=== PATIENT | male | born 1995 | race Caucasian/White ===

== ENCOUNTER 2017-04-10 09:34 | Inpatient (IN) | payer OTHER ==
[~2017-04-10] VITALS: Ht 157.5 cm; Wt 68.5 kg
[~2017-04-10 09:34] MED LIST: ABILIFY5 MG; AUGMENTIN600 MG/5 M PO; AZITHROMYC200 MG/5 M GT; BETHANECHOL CHLO5 MG GT; BISAC-EVAC10 MG PR; CIPROFLOXACIN750 MG PO; CLONAZEPAM0.5 MG PO; CLONIDINE HCL0.2 MG PO; GLYCOPYRROLATE1 MG GT; MIRALAX17 GM PT; NEXIUM20 M1 PO; ONFI10 MG GT; ROBINUL1 MG PO; TRAZODONE HCL50 MG GT; VALPROIC A250 MG/5 M GT; VALPROIC ACID250 MG
--- NOTE | 2017-04-10 13:50 | NUR ---
PT ARRIVED TO MED SURG FLOOR WITH RN MEDICAL TECHNOLOGIST CLINICAL. PT RESPIRATIONS AT 38 BREATHS PER MINUTE, PT O2 SATURATION AT 94%. PT HR ELEVATED IN THE 130S. PT FEBRILE AT 100.2. PTS LUNGS SOUND COURSE THROUGHOUT. IV PATENT INFUSING D5 1/2 NS+20K. WILL CONTINUE TO REASSESS. PT'S FAMILY IN ROOM.
--- NOTE | 2017-04-10 15:47 | NUR ---
PT FAMILY AT BEDSIDE. PT TEMPERATURE 99.4 TEMPORAL. TURNED PT FROM RIGHT SIDE TO LEFT WITH ASSISTANCE FROM PARENTS. PT SP02 89% ON 3L BY MASK. PT HR 128. WILL CONTINUE TO REASSESS.
--- NOTE | 2017-04-10 18:12 | NUR ---
REPOSITIONED PT TO BACK. PT MOTHER IN ROOM. PT HR 111, O2 SAT 91% ON 3L BY MASK. PT ABLE TO MOVE LEGS ON COMMAND, LEFT ARM FOR HIS MOTHER. WILL CONTINUE TO ASSESS PT.
--- NOTE | 2017-04-10 18:48 | NUR ---
PT ARRIVED TO FLOOR AT 1350 FROM ER. PT FEVER HAS RESOLVED, 98.3 AT 1800. PT HAS IV FLUID D5 1/2 NS +20K INFUSING AT 100 ML/HR. RESP RATE HAS BEEN TACHYPNIC THROUGHOUT SHIFT BETWEEN 32-38 BREATHS PER MIN. HR ELEVATED, 114 AT 1800. PT HAS RECEIVED 2L BOLUS OF FLUID IN ER. LACTIC ACID WAS 3.1. OXYGEN SATURATION 92% ON 3L BY MASK. PT FAMILY HAS BEEN PRESENT THROUGHOUT SHIFT, ASSISTING WITH TURNING, SUCTION, MEDICATION ADMINISTRATION.
--- NOTE | 2017-04-10 19:20 | NUR ---
REPORT GIVEN TO RALPH INMAN. CARE OF PT TRANSFERRED.
--- NOTE | 2017-04-10 20:00 | NUR ---
RECEIVED REPORT AT 1900. FOUND PT IN BED WITH PARENTS AT BEDSIDE. PT APPEARD COMFORTABLE.
--- NOTE | 2017-04-10 22:00 | NUR ---
ALL LOBES ARE COARSE. V/S ARE WDL, PT HAS HAD SOME EMESIS AND NEEDED TO BE SUCTIONED BY MOTHER.
--- NOTE | 2017-04-11 01:30 | NUR ---
PT IS SLEEPING AT THIS TIME.
--- NOTE | 2017-04-11 03:12 | NUR ---
PT IS SLEEPING AT THIS TIME.
--- NOTE | 2017-04-11 04:48 | NUR ---
PT OVERALL HAD AN UNEVENTFUL NIGHT. PT HAS BEENS SLEEPING SINCE ABOUT 2229. MOTHER IS VERY INVOLVED WITH THE CARE OF HER SON. LUNGS WITH BOTH ASSESSMENTS THIS SHIFT WERE VERY COARSE. PT DID NOT SEEM TO HAVE SOB.
--- NOTE | 2017-04-11 07:16 | NUR ---
ATTEMPTED TO PULL BLOOD FROM IV FOR LAB. UNSUCCESSFUL. ER NURSE TO ROOM TO ATTEMPT.
--- NOTE | 2017-04-11 07:44 | NUR ---
FAMILY IN ROOM WITH PT. REPORT PT IS BACK TO BASELINE.
--- NOTE | 2017-04-11 09:14 | NUR ---
DR MARI IN TO SEE PT.
[2017-04-11] MEDS ORDERED: AZITHROMYC200 MG/5 M PT (09:31)
--- NOTE | 2017-04-13 14:51 | HP ---
[facility] [address], [place] [address] Signed DATE OF SERVICE: 04/10/2017 REFERRING PHYSICIAN: Dr. Rob Navarro PRIMARY CARE PHYSICIAN: Dr. Kaveh Andrade IDENTIFICATION: The patient is a 21-year-old male with cerebral palsy and developmental delay. He has been admitted through the emergency room. History is obtained from the patient's parents. The mother works in the emergency room at [employer]. REASON FOR ADMISSION: Some respiratory distress. HISTORY OF PRESENT ILLNESS: The patient is a 21-year-old male with severe developmental delay, quadriplegia and seizure disorder who is in his baseline stated health until this morning when he was found in bed in respiratory distress. The night before he appeared normal. His father had seen him early in the morning before he left for work, but when his care givers and his mother found him this morning, he was having difficulty breathing with oxygen saturations down to 70%. He is not normally on oxygen at home. He was given his routine vest CPT treatment and some suctioning, but did not improve, and therefore, he was brought to the emergency room. Parents state that there has been no fever, no rhinorrhea, or no ill contacts. He did not have a cough yesterday. In fact, he was seen by his primary care provider Dr. Andrade and everything sounded normal at that time. He has a history of prior pneumonia in July 2016. In the emergency room, he is in severe respiratory distress with oxygen saturations of 70%. He was given oxygen, IV fluids, nebulizing treatments, and aggressive suctioning. He had a large mucous plug, which was removed. However, he continued to have oxygen requirement and remained tachycardic. His chest x-ray was not abnormal, but his white count was elevated, and therefore, he was referred for admission. His chest x-ray was unchanged from prior chest x-rays. PAST MEDICAL HISTORY: Significant for: Cerebral palsy with quadriplegia since . Born at 31 weeks as mid gestational age with intrauterine stroke. Seizure disorder. The patient normally has 2 to 30 seizures a day, which are described as startle like reactions. The seizure has been under better control on Onfi and valproic acid recently. He really has grand mal seizures. Electronically Signed By: AGUSTIN RIGGS MD 04/13/17 1451 PATIENT NAME: EKATERINA BARON HISTORY AND PHYSICAL DATE OF : [birth year] PHYSICIAN: AGUSTIN RIGGS MD REPORT #: [id number] REPORT IS CONFIDENTIAL AND NOT TO BE RELEASED WITHOUT AUTHORIZATION [facility] [address], [place] [address] Signed Spasticity, status post baclofen pump placement. Hydrocephalus, status post ventriculoperitoneal shunt placement. Hospitalized for pneumonia in July 2016. PAST SURGICAL HISTORY: Includes ventriculoperitoneal shunt placement, gastrostomy tube placement, bilateral hernia repair, Hamstring tendon release bilaterally, fracture of the right leg, baclofen pump placement, and right hip surgery. CURRENT MEDICATIONS: Include MiraLAX 1 packet 2 times a week on Thursday and Thursday, Nexium 20 mg p.o. q. day, Bethanechol 2.5 mg t.i.d., glycopyrrolate 2 m g q. day, Clobazam 20 mg b.i.d., trazodone 50 mg at bedtime, glycopyrrolate 1.5 mg b.i.d., valproic acid 10 ml b.i.d., Fleet enema p.r.n. for constipation. ALLERGIES: To topiramate. SOCIAL HISTORY: The patient lives at home with his parents. He is dependant on family for 100% of his ADLs. He has in-home caregivers. The mother works in the emergency room. He has 2 brothers. There is 1 cat and 1 dog in the home. The father smokes outside the home. The parents are his POA. The parents both agreed to full code at this time. FAMILY HISTORY: Noncontributory. The parents and siblings are all healthy. REVIEW OF SYSTEMS: He has had no fever or night sweats. There has been no rhinorrhea. He does have a chronic cough, which has not changed recently. There has been no significant dyspnea. There has been no nausea, vomiting, or diarrhea. He was noted to have daily seizures up to 30 a day. Otherwise, a 14-point review of systems has been negative except for what had been mentioned in the history of present illness. PHYSICAL EXAMINATION: VITAL SIGNS: Temperature 37.3, pulse 139, respirations 36, blood pressure 145/66, oxygen saturations 97% on a 2 L face mask. GENERAL: The patient is felt mentally delayed with cerebral palsy in moderate respiratory distress. Electronically Signed By: AGUSTIN RIGGS MD 04/13/17 1451 PATIENT NAME: EKATERINA BARON HISTORY AND PHYSICAL DATE OF : [birth year] PHYSICIAN: AGUSTIN RIGGS MD REPORT #: [id number] REPORT IS CONFIDENTIAL AND NOT TO BE RELEASED WITHOUT AUTHORIZATION [address] [address] Signed HEENT: Head is atraumatic. Eyes: Pupils were 8 mm, equally round and reactive to light. There is no scleral injection. Nose is clear without epistaxis or rhinorrhea. Mouth was moist. Ears: Right tympanic membrane was occluded by cerumen. Left tympanic membrane was clear. NECK: No nuchal rigidity. No lymphadenopathy. No thyromegaly. LUNGS: Demonstrated diffuse rhonchi bilaterally with significant conducted upper airway noises. CARDIAC: Tachycardic. Regular rhythm without murmur or gallops. ABDOMEN: Positive bowel sounds, somewhat obese, soft, nondistended, nontender. There is gastrostomy tube in the left lower quadrant that do not appear to have any evidence of infection. GENITOURINARY: Deferred. EXTREMITIES: Extremities were warm distally. Capillary refill time was 3-4 seconds. There is no cyanosis or edema. There were flexion contractures in all extremities. There was decreased range of motion at all the joints. SKIN: Warm and dry. There is some diffuse erythema in the lower extremities. There is multiple small round petechiae up and down the legs. Parents, however, state that he has had this for some time and the etiology is unknown. NEUROLOGIC: The patient was awake, eyes were open. He did not seem to interact with his p arents, he did not speak, he did not follow commands, he was rigid to touch in all extremities. He was hypertonic throughout. There are multiple beats of clonus bilaterally. DIAGNOSTIC DATA: CBC: Showed white blood cell count of 16.1, hemoglobin 17, hematocrit 52.6, platelet count of 141,000. Differential, segs 83, lymphs 9, monos 5. Electrolytes: Sodium 140, potassium 3.9, chloride 100, CO2 30, BUN 11, creatinine 0.36. Random glucose 105. Anion gap was 13.9. Venous lactate was 3.1. Calcium 10.2. Total bili spangler 0.2. AST 11, ALT 7, alkaline phosphatase 80. Total protein was 8.3, albumin 4.3. Chest x-ray demonstrated no acute changes. IMPRESSION: This is a 21-year-old male with; Acute respiratory distress of undetermined aetiology, most likely represents mucous plugging and/or aspiration pneumonia. The patient was healthy yesterday and he has had no fevers recently. He will be treated with ceftriaxone and azithromycin for presumed acute bronchitis versus aspiration pneumonia. He has received a fluid bolus and a sepsis protocol in the emergency room. We will repeat his chest x-ray in the morning to see if there is any new development. He will receive aggressive respiratory therapy and pulmonary toilet including CPT t.i.d., albuterol nebulizations t.i.d. and q.1 h our as needed. If the patient continues to have increased mucus plugging, then we will consider adding nebulized hypertonic saline. The patient will be continued on his normal home Electronically Signed By: AGUSTIN RIGGS MD 04/13/17 1451 PATIENT NAME: EKATERINA BARON HISTORY AND PHYSICAL DATE OF : [birth year] PHYSICIAN: AGUSTIN RIGGS MD REPORT #: [id number] REPORT IS CONFIDENTIAL AND NOT TO BE RELEASED WITHOUT AUTHORIZATION [facility] [address], [place] [address] Signed medications including Robinul. 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 The patient will be continued on Onfi and valproic acid. He normally has breakthrough seizures, he will be treated with lorazepam for any grand mal seizures. Oromotor dysphagia. The patient will be continued on his home, gastrostomy tube feedings Nutren 1.0 two cans 3 times a day with 8 ounces of water flush. Cerebral palsy with quadriplegia. The patient will have passive range of motion while in bed. He will continue as baclofen pump, we will continue his other home medications. Deep venous thrombosis prophylaxis would be none. The patient is at high risk of respiratory failure at this time. Agustin Riggs MD MM/Michellel /[id number] cc: Kaveh Andrade Electronically Signed By: AGUSTIN RIGGS MD 04/13/17 1451 PATIENT NAME: EKATERINA BARON HISTORY AND PHYSICAL DATE OF : [birth year] PHYSICIAN: AGUSTIN RIGGS MD REPORT #: [id number] REPORT IS CONFIDENTIAL AND NOT TO BE RELEASED WITHOUT AUTHORIZATION
== END 2017-04-11 10:30 | disposition home or self-care (01) | DRG 204 ==
LOC: ED 09:34 → MS 12:50
PROVIDERS: ADMIT Pediatrics Pediatric Critical Care Medicine
DX: J80 Acute respiratory distress syndrome (principal); F72 Severe intellectual disabilities; T17.490A Other foreign object in trachea causing asphyxiation, initial encounter; G80.8 Other cerebral palsy; G40.909 Epilepsy, unspecified, not intractable, without status epilepticus; J20.9 Acute bronchitis, unspecified; R13.19 Other dysphagia; Z98.2 Presence of cerebrospinal fluid drainage device; X58.XXXA Exposure to other specified factors, initial encounter
CPT/HCPCS: 31720; 71010; 80053; 83605; 85025; 87040; 94640; 94667; 94668; 96361; 96374; 99285; J0696; J7030

== ENCOUNTER 2017-07-12 16:54 | Inpatient (IN) | payer OTHER ==
[~2017-07-12] VITALS: Ht 157.5 cm; Wt 69.9 kg
[~2017-07-12 16:54] MED LIST changes: +AZITHROMYC200 MG/5 M PT
--- NOTE | 2017-07-13 00:01 | NUR ---
ADMIT TO CCU PER STRETCHER. PARENTS HELPED MOVE PT FROM STRETCHER TO BED. MOM CLEANED AROUND PEG TUBE. SATS 89-92% ON 4L OXYMASK, INC TO 6L. MOM STATES USUAL SATS LOW 90'S AT HOME ON RA, HIGH IS 95%. FATHER IN ROOM.
--- NOTE | 2017-07-13 01:51 | NUR ---
HAS BEEN MOANING, GIVEN 650MGL TYLENOL PER PEG TUBE.
--- NOTE | 2017-07-13 02:30 | NUR ---
TURNED TO FACE FATHER. PT NOW SLEEPING.
--- NOTE | 2017-07-13 04:00 | NUR ---
COUGHING. REPOSITIONED TO BACK. HAS DEP RHONCHI AND FEW SCATTERED WHEEZES ON RT SIDE WHICH HAS BEEN DEPENDENT. REMIANS ON 6L 02 OXYMASK. RR UNLABORED.
--- NOTE | 2017-07-13 06:05 | NUR ---
SLEEPING. HAS RARE COUGH.
--- NOTE | 2017-07-13 06:38 | NUR ---
PCSR DONE. NO OTHER CHANGES.
--- NOTE | 2017-07-13 07:11 | NUR ---
REPORT TO DAY SHIFT.
--- NOTE | 2017-07-13 10:13 | NUR ---
PT APPEARS TO BE SLEEPING AT THIS TIME. PT MOTHER AT THE BED SIDE.
--- NOTE | 2017-07-13 11:46 | NUR ---
PATIENT KNOWN TO ME BOTH AN INPATIENT AND OUTPATIENT. HIS PRIMARY SOURCE OF NUTRITION IN PEG TUBE FEEDINGS. HE IS BOLUS FED I CAN OF NUTREN 1.0 AND NUTRENT 1.0 WITH FIBER THREE TIMES A DAY. PUMP RUNS AT 325 ML/HR. PARENTS GIVE 240 ML WATER BEFORE EACH MEAL. THIS PROVIDES 1500 CALORIES AND 60 GRAMS OF PROTEIN. PARENTS ARE BRINGING IN THE NUTREN FORMULA BECAUSE WE DO NOT HAVE NESTLE PRODUCTS HERE. NO NUTRITION INTERVENTION NEEDED AT THIS TIME. WILL CONTINUE TO MONITOR WHILE HERE.
--- NOTE | 2017-07-13 12:00 | NUR ---
PEG TUB FEEDING STARTED AT THIS TIME WITH A RATE OF 150ML/HR. PT'S MOTHER PROVIDED THE FEEDING LIQUID FORUMLA AND STAFF STARTED THE PUMP.
--- NOTE | 2017-07-13 13:34 | NUR ---
STOPPED BY TO CHECK ON PT-DR DOMÍNGUEZ IN RM. WAVED TO JESSIE-PT'S MOTHER. WILL CHECK BACK LATER
--- NOTE | 2017-07-13 14:01 | NUR ---
PT PLACED ON HIGH FLOW O2 AT THIS TIME, PT APPERS TO NOT BE COMFORTABLE WITH THIS INPLACE. HE LOOKS AT STAFF WITH EYES WIDE OPEN AND MOANS AT TIMES. WILL LET RT AND DR DOMÍNGUEZ KNOW.
--- NOTE | 2017-07-13 14:41 | NUR ---
HIGH FLOW O2 LITERS HAS BEEN DECREASED TO 15L AT 50%. PT IS TOLERATING THIS FLOW AT THIS TIME. PT HAS GONE BACK TO SLEEP AT THIS TIME. HIS O2 FIO2 IS 91%. BUT PT APPEARS TO BE COMFORTABLE. PT DAD IS AT BEDSIDE.
--- NOTE | 2017-07-13 15:42 | NUR ---
REPORT CALLED TO M/S CHARGE NURSE AT THIS TIME. ALL QUESTIONS ANSWERED. PT TRANSPORTED VIA BED, WITH ALL PERSOANL BELONGINGS, AND PERSOANL MEDICATIONS. PT FATHER WAS SHOWN THAT PERSONAL MEDICATIONS WENT WITH PT. PT WAS TRANSFER TO ROOM 108.
--- NOTE | 2017-07-13 16:00 | NUR ---
PT ARRIVED TO FLOOR FROM CCU VIA BED. PT RESTING IN BED ON BACK, EYES CLOSED, RESP EVEN AND UNLABORED. HANDS CONTRACTURED. PT MOTHER AT BEDSIDE. IV INFUSING WNL. TUBE FEEDING NOT RUNNING AT THIS TIME, PEG TUBE INSERTION SITE WITHOUT REDNESS, SMALL AMOUNT OF SEROUS DRAINAGE NOTED, GAUZE REPLACED WITH CLEAN DRAIN SPONGE. SKIN GROSSLY INTACT. HILL PATENT PUTTING OUT DARK YELLOW URINE. CALL LIGHT WITHIN REACH.
--- NOTE | 2017-07-13 16:40 | NUR ---
PT RESTING IN BED WITH EYES CLOSED, RESP EVEN AND UNLABORED. PT PARENTS REPORTED THAT PT VOMITED "A TINY BIT" AND SUCTIONED HIM. "VENTED" PEG TUBE. PT HEAD OF BED ELEVATED. SATS REMAIN IN LOW 90'S ON VAPOTHERM, SETTINGS UNCHANGED. CALL LIGHT WITHIN REACH.
--- NOTE | 2017-07-13 16:50 | NUR ---
PATIENT RESTING IN BED WITH EYES CLOSED. PARENTS IN ROOM. NO NEEDS AT THIS TIME.
--- NOTE | 2017-07-13 17:10 | NUR ---
PT RESTING IN BED WITH EYES CLOSED, SATTING 94% ON 15L 50% FIO2 VIA VAPOTHERM. PARENTS REPORT THAT REPOSITIONED PT IN BED THEMSELVES. HILL AND IV PATENT. NO NEEDS OR CONCERNS AT THIS TIMES. CALL LIGHT WITHIN REACH.
--- NOTE | 2017-07-13 19:34 | NUR ---
MEDICATED WITH ZOFRAN 4MG IV. KANGAROO PUMP STOPPED BY CATHIE, 75CC RESIDUAL. PARENTS AT BEDSIDE. EMSIS 100CC SUCTIONED OUT
--- NOTE | 2017-07-13 19:40 | NUR ---
THIS MICROWAVE OVEN ASSEMBLER ENTERED PATIENTS ROOM PATIENT SKIN DUSKY. THIS MICROWAVE OVEN ASSEMBLER CALLED FOR HELP AND GRABBED VITAL CART AND PULLED CODE LEVER DOWN. CODE TEAM THEN ENTERED ROOM.
--- NOTE | 2017-07-13 20:30 | NUR ---
TO RM 128 PER BED FROM MED SURG VIA CT. REPORT RECIEVED FROM KELLY ROSAS.PT HAS EYES OPEN. ORAL AIRWAY IS IN PLACE. RT WITH PT. DR DOMÍNGUEZ HERE. FAMILY WITH PT. BREATH TONES CLEAR RT AND ARE ABSENT ON LEFT. IV SITES FLUSH WELL WITH NS.
--- NOTE | 2017-07-13 20:35 | NUR ---
1941 - PARENTS CALLED BACK THAT PT WAS HAVING TROUBLE BREATHNG, UPON ENTERING ROOM NOTED PT TO BE ASHEN HARRISON, O2 ON,45o in bed. EYES WERE BLINKING, PUPILS VERY DILATED, AGONAL BREATHING PRESENT. TRIED CHEST RUBBING WITH NO RESPONSE, VERY TIGHT LUNG SOUND. PT HAS A PULSE PER PULSE OX OF 40,. PUPILS BECOME NON REACTIVE, PULSE DECREASING TO 30BPM, TEHN 20BPM THEN AT 1944 - NO HEART RATE AUSCULTATED AT THAT TIME. CHEST COMPRESSIONS STARTED, BLUE CODE CALLED. RT IN ROOM AT THIS TIME, CRASH CART IN ROOM. DR WILDE IN ROOM
--- NOTE | 2017-07-13 21:00 | NUR ---
INTUBATED PER AGUSTIN VACUUM FORM OPERATOR WITH 7.5 ETT. HAS GOOB BREATH TONES ON RT, REMAIN ABSENT ON LEFT. DR DOMÍNGUEZ, RT AND VACUUM FORM OPERATOR HAD MULT ATTEMPTS AT ABGS. NOTED TO HAVE SOME REDNESS IN GROIN AREA, PROB YEAST PTS MOM IS AWARE.
--- NOTE | 2017-07-13 21:45 | NUR ---
SUCTIONED ETT MULT TIMES FOR PINK TINGED SPUTUM ETCO2 HAS BEEN RISING UPT TO 80'S DEC SOME AFTER LARGE AMT MUCOUS RETURNED. ETC02 DOWN TO 50'S. MEDS GIVEN PER PEG WITHOUT PROBLEM. [facility] CREW HERE.
--- NOTE | 2017-07-13 22:34 | EKG ---
[facility] [address] [place], [place] [address] Signed Sinus tachycardia Inferior infarct , age undetermined Abnormal ECG No previous ECGs available Confirmed by AVANI DOMÍNGUEZ MD ([id number]) on 07/13/2017 10:33:55 PM Electronically Signed By: AVANI DOMÍNGUEZ MD 07/13/17 2234 PATIENT NAME: EKATERINA BARON Electrocardiogram DATE OF : [birth year] PHYSICIAN: AVNAI DOMÍNGUEZ MD REPORT #: [id number] REPORT IS CONFIDENTIAL AND NOT TO BE RELEASED WITHOUT AUTHORIZATION
--- NOTE | 2017-07-13 22:45 | NUR ---
REPORT GIVEN TO RN AT [facility].
--- NOTE | 2017-07-13 23:10 | NUR ---
2234 PT [facility], SUCTIONED ETT FOR PINK SPUTUM AND SATS IMPROVED. PT WAS GIVEN 10MG ROCURONIUM IVP PER VERBAL ORDER DR DOMÍNGUEZ AT 6912
--- NOTE | 2017-07-13 23:12 | NUR ---
LE PROPOFOL STARTED AT 5MG/KG AT 2120 WAS TITRATED UP TO 10 AT 2215.
--- NOTE | 2017-07-13 23:22 | NUR ---
2235 PT TRANSFERED TO [facility] PER [facility].
--- NOTE | 2017-07-14 11:17 | NUR ---
Was called in on a code blue at 7:45. Pt in respiratory arrest. Pt sent to CT and then to CCU. Prayed with family. In CCU pt was intibated and was more comfortable. Waited with family until situation was stable. Family nca certified concierge was with them. Left at 8:45.
== END 2017-07-13 22:35 | disposition short-term general hospital (02) | DRG 177 ==
LOC: ED 16:54 → CCU 22:59 → MS 07-13 15:36 → CCU 07-13 20:40 → MS 07-13 20:44 → CCU 07-13 22:35
PROVIDERS: ADMIT Internal Medicine
DX: J69.0 Pneumonitis due to inhalation of food and vomit (principal); J96.01 Acute respiratory failure with hypoxia; J96.02 Acute respiratory failure with hypercapnia; A41.9 Sepsis, unspecified organism; R65.20 Severe sepsis without septic shock; E87.2 Acidosis; G80.8 Other cerebral palsy; G40.909 Epilepsy, unspecified, not intractable, without status epilepticus; Z93.1 Gastrostomy status; Z98.2 Presence of cerebrospinal fluid drainage device
CPT/HCPCS: 31500; 31720; 36415; 36600; 51702; 71010; 71260; 80053; 80164; 81001; 81002; 82803; 83605; 83735; 83880; 84100; 84484; 85025; 85610; 87040; 87449; 87502; 87899; 93005; 93010; 94002; 94640; 94660; 94799; 96361; 96374; 96375; 99291; 99292; J0295; J1650; J1956; J2405; J2543; J2704; J7030; J7120; Q9967

== ENCOUNTER 2019-11-29 15:07 | Emergency (ER) | payer OTHER ==
[~2019-11-29] VITALS: Ht 154.9 cm; Wt 59.1 kg
[~2019-11-29 15:07] MED LIST changes: +NEXIUM10 MG PO
--- OUTSIDE RECORDS SUMMARY | 2019-11-29 15:10 | XMS ---
PreManage Notification: EKATERINA BARON Security Bird Cage Assembler Events No recent Security Events currently on file CRITERIA MET - History of Sepsis Dx CARE PROVIDERS There are no care providers on record at this time. Sukhdeep has no Care Guidelines for this patient. EAntonioDAntonio VISIT COUNT (12 MO.) 2 [facility] TOTAL 2 NOTE: Visits indicate total known visits. ED/C VISIT TRACKING (12 MO.) 11/29/2019 15:07 [facility] [place] TYPE: Emergency COMPLAINT: - NO URINATION, MULTIPLE COMPLAINTS 03/05/2019 09:12 [facility] [place] TYPE: Emergency COMPLAINT: - RECTAL BLEEDING DIAGNOSES: - Hemorrhage of anus and rectum - Allergy status to other drugs, medicaments and biological sub - Melena - Hemoptysis - Other rn long term care (current) drug therapy INPATIENT VISIT TRACKING (12 MO.) No inpatient visits to display in this time frame [email or web address]
[2019-11-29] MEDS ORDERED: ZOFRAN8 MG PT (18:41)
== END 2019-11-29 19:06 | disposition home or self-care (01) ==
LOC: ED 15:07
DX: R11.10 Vomiting, unspecified (principal); Z88.8 Allergy status to other drugs, medicaments and biological substances; Z79.899 Other long term (current) drug therapy
CPT/HCPCS: 51702; 51798; 80053; 81001; 83690; 85025; 99284-25; J2405; J7030

== ENCOUNTER 2019-11-30 03:11 | Emergency (ER) | payer OTHER ==
[~2019-11-30] VITALS: Ht 154.9 cm; Wt 59.1 kg
[~2019-11-30 03:11] MED LIST changes: +ZOFRAN8 MG PT
--- OUTSIDE RECORDS SUMMARY | 2019-11-30 03:14 | XMS ---
PreManage Notification: EKATERINA BARON Security Director Of Social Media Marketing Events No recent Security Events currently on file CRITERIA MET - History of Sepsis Dx - [facility] - 2 Visits in 30 Days CARE PROVIDERS There are no care providers on record at this time. Sukhdeep has no Care Guidelines for this patient. Amaury VISIT COUNT (12 MO.) 3 [facility] TOTAL 3 NOTE: Visits indicate total known visits. ED/UCC VISIT TRACKING (12 MO.) 11/30/2019 03:12 [facility] [place] TYPE: Emergency COMPLAINT: - LOW O2 11/29/2019 15:07 [facility] [place] TYPE: Emergency COMPLAINT: - NO URINATION, MULTIPLE COMPLAINTS 03/05/2019 09:12 [facility] [place] TYPE: Emergency COMPLAINT: - RECTAL BLEEDING DIAGNOSES: - Hemorrhage of anus and rectum - Allergy status to other drugs, medicaments and biological sub - Melena - Hemoptysis - Other intermediate (current) drug therapy INPATIENT VISIT TRACKING (12 MO.) No inpatient visits to display in this time frame [email or web address]
== END 2019-11-30 08:01 | disposition home or self-care (01) ==
LOC: ED 03:11
PROC: 0T9B70Z Drainage of Bladder with Drainage Device, Via Natural or Artificial Opening (ICD-10-PCS; principal; 2019-11-30)
DX: R06.02 Shortness of breath (principal); Z88.8 Allergy status to other drugs, medicaments and biological substances; Z79.899 Other long term (current) drug therapy
CPT/HCPCS: 51702; 70450; 71045; 80053; 85025; 99283-25

== ENCOUNTER 2019-12-01 17:16 | Emergency (ER) | payer OTHER ==
[~2019-12-01] VITALS: Ht 154.9 cm; Wt 59.1 kg
--- OUTSIDE RECORDS SUMMARY | 2019-12-01 17:18 | XMS ---
PreManage Notification: EKATERINA BARON Security Software Product Specialist Events No recent Security Events currently on file CRITERIA MET - History of Sepsis [facility] - 2 Visits in 30 Days CARE PROVIDERS CANDACE ROBLES [facility] 11/30/2019-Current PHONE: [phone] Sukhdeep has no Care Guidelines for this patient. Amaury VISIT COUNT (12 MO.) 4 [facility] TOTAL 4 NOTE: Visits indicate total known visits. ED/UCC VISIT TRACKING (12 MO.) 12/01/2019 17:16 [facility] [place] TYPE: Emergency COMPLAINT: - NO URINE OUTPUT 11/30/2019 03:12 [facility] [place] TYPE: Emergency COMPLAINT: - LOW O2 11/29/2019 15:07 [facility] TYPE: Emergency COMPLAINT: - NO URINATION, MULTIPLE COMPLAINTS 03/05/2019 09:12 [facility] TYPE: Emergency COMPLAINT: - RECTAL BLEEDING DIAGNOSES: - Hemorrhage of anus and rectum - Allergy status to other drugs, medicaments and biological sub - Melena - Hemoptysis - Other [facility] (current) drug therapy INPATIENT VISIT TRACKING (12 MO.) No inpatient visits to display in this time frame [email or web address]
== END 2019-12-01 20:38 | disposition home or self-care (01) ==
LOC: ED 17:16
DX: R33.9 Retention of urine, unspecified (principal); R46.89 Other symptoms and signs involving appearance and behavior; Z88.4 Allergy status to anesthetic agent; Z79.899 Other long term (current) drug therapy
CPT/HCPCS: 51702; 70250; 71046; 72040; 74019; 81001; 99283-25

== ENCOUNTER 2021-11-29 21:22 | Inpatient (IN) | payer OTHER ==
[~2021-11-29] VITALS: Ht 154.9 cm; Wt 56.9 kg
--- OUTSIDE RECORDS SUMMARY | 2021-11-29 21:24 | XMS ---
PreManage Notification: EKATERINA BARON Security Steam Gigger Events No recent Security Events currently on file CRITERIA MET - PDMP CARE PROVIDERS [facility], Clinic/Center: [facility] PHONE: Unknown CANDACE ROBLES [facility] 11/30/2019-Current PHONE: Unknown GEETHA RODRÍGUEZ [facility] Current PHONE: Unknown Sukhdeep has no Care Guidelines for this patient. EViviana VISIT COUNT (12 MO.) 1 [facility] TOTAL 1 NOTE: Visits indicate total known visits. ED/UCC VISIT TRACKING (12 MO.) 11/29/2021 21:22 [facility] [place] TYPE: Emergency COMPLAINT: - DIFFICULTY BREATHING INPATIENT VISIT TRACKING (12 MO.) No inpatient visits to display in this time frame [email or web address]
[2021-11-30] MEDS ORDERED: CLOBAZAM20 MG GT (10:33)
[2021-11-30] MEDS ORDERED: ALBUTEROL2.5 MG/3 M INH (10:36)
[2021-12-01] MEDS ORDERED: MIRALAX17 GM PT (08:00)
[2021-12-06] MEDS ORDERED: AUGMENTIN250 MG/5 M PO (12:51)
== END 2021-12-06 14:00 | disposition home or self-care (01) | DRG 177 ==
LOC: ED 21:22 → CCU 23:25 → MS 12-04 18:50
PROVIDERS: ADMIT Internal Medicine; ATTEND Internal Medicine
DX: J69.0 Pneumonitis due to inhalation of food and vomit (principal); J96.21 Acute and chronic respiratory failure with hypoxia; K21.9 Gastro-esophageal reflux disease without esophagitis; Z20.822 Contact with and (suspected) exposure to COVID-19; G40.909 Epilepsy, unspecified, not intractable, without status epilepticus; G80.9 Cerebral palsy, unspecified; Z93.0 Tracheostomy status; Z88.8 Allergy status to other drugs, medicaments and biological substances; Z98.890 Other specified postprocedural states; Z79.899 Other long term (current) drug therapy
CPT/HCPCS: 31720; 36415; 36600; 71045; 80048; 82803; 83605; 83735; 83880; 85025; 86140; 87040; 87077; 87186; 94640; 94644; 94667; 94668; 94799; 96365; 96375; 99285-25; A9270; A9270-GY; C9113; C9803; J1650; J1940; J2543; J3480; J7030; U0003

== ENCOUNTER 2021-12-11 21:45 | Inpatient (IN) | payer OTHER ==
[~2021-12-11] VITALS: Ht 154.9 cm; Wt 57.0 kg
[~2021-12-11 21:45] MED LIST changes: +ALBUTEROL2.5 MG/3 M INH; +AUGMENTIN250 MG/5 M PO; +CLOBAZAM20 MG GT
--- OUTSIDE RECORDS SUMMARY | 2021-12-11 21:48 | XMS ---
PreManage Notification: EKATERINA BARON Security Product Designer Events No recent Security Events currently on file CRITERIA MET - [facility] - 2 Visits in 30 Days - PDMP CARE PROVIDERS [facility], Clinic/Center: Dental Current INCAntonio PHONE: Unknown CANDACE ROBLES [facility] 11/30/2019-Current PHONE: Unknown GEETHA RODRÍGUEZ [facility] Current PHONE: Unknown Sukhdeep has no Care Guidelines for this patient. E.D. VISIT COUNT (12 MO.) 2 BAL [facility] TOTAL 2 NOTE: Visits indicate total known visits. ED/UCC VISIT TRACKING (12 MO.) 12/11/2021 21:46 [facility] TYPE: Emergency COMPLAINT: - LOW OXYGEN LEVELS 11/29/2021 21:22 [facility] TYPE: Emergency COMPLAINT: - DIFFICULTY BREATHING INPATIENT VISIT TRACKING (12 MO.) 11/29/2021 23:25 [facility] TYPE: Medical Surgical COMPLAINT: - ACUTE RESPIRATORY FAILURE, PNEUMONIA DIAGNOSES: - Pneumonitis due to inhalation of food and vomit - Tracheostomy status - Acute and chronic respiratory failure with hypoxia - Other specified postprocedural states - Gastro-esophageal reflux disease without esophagitis - Epilepsy, unspecified, not intractable, without status epilepticus - Allergy status to other drugs, medicaments and biological substances - Other terminologist (current) drug therapy - Other specified postprocedural states - Tracheostomy status - Gastro-esophageal reflux disease without esophagitis - Cerebral palsy, unspecified - Contact with and (suspected) exposure to COVID-19 - Acute and chronic respiratory failure with hypoxia - Allergy status to other drugs, medicaments and biological substances - Other assisted (current) drug therapy - Epilepsy, unspecified, not intractable, without status epilepticus - Contact with and (suspected) exposure to COVID-19 - Cerebral palsy, unspecified [email or web address]
[2021-12-11] MEDS ORDERED: AMOX TR-K250 MG/5 M PT (22:04)
--- NOTE | 2021-12-12 01:45 | NUR ---
PT ARRIVED TO THE CCU AT 0040 VIA STRETCHER, PT BROUGHT DOWN BY RALPH YUAN. PT ON 5L O2 VIA TRACH MASK, PT'S PARENTS AND SISTER PRESENT WELL. PT ASSISTED ONTO THE CCU BED. VITALS THEN TAKEN (SEE CHART). PT AWAKE AND ALERT, NONVERBAL AT BASELINE. ADMISSION INFORMATION OBTAINED FROM PT'S PARENTS. MOTHER AT THE BEDSIDE SUCTIONING PT'S TRACH/SECRETIONS AT TIMES. PT HAD TO BE TITRATED UP TO 12L SPO2 DECREASED AND REMAINED IN THE 88-89% DESPITE SUCTIONING. SCHEDULED TRAZADONE ADMINISTERED VIA G-TUBE. ASSESSMENT COMPLETED AT THIS TIME. PT AWAKE, ALERT, NONVERBAL AT BASELINE, HEART RATE REGULAR, TACHYCARDIC, SPORADIC CRACKLES HEARD THROUGHOUT LUNGS. ACTIVE BOWEL TONES PRESENT IN ALL QUADRANTS, ABDOMEN SOFT. G-TUBE SITE C/D/I, TRACHEOSTOMY SITE C/D/I. PULSES STRONG, SKIN INTACT. IVF NOW INFUSING ORDERED (SEE MAR). IVF MOMENTARILY STOPPED. PT IN NO APPARENT DISTRESS AT THIS TIME, RALPH GUILLEN IN ROOM AT THIS TIME TO START SCHEDULED IV ABX, PT'S FATHER IN THE ROOM, WILL CONTINUE PLAN OF CARE. CALL LIGHT IN REACH.
--- NOTE | 2021-12-12 02:32 | NUR ---
PT LAYING IN BED RESTING AT THIS TIME, PT'S FATHER REMAINS AT THE BEDSIDE. IV ABX COMPLETED, MAINTENANCE IVF NOW INFUSING. PT OXYGEN TITRATED DOWN TO 5LPM PT'S SPO2 WAS 98%, SPO2 REMAINS AT 96% OF 5L. PT'S FATHER NOTED THAT HE HAD SUCTIONED HIS SON'S TRACH AND HAD HIS SON COUGH TO CLEAR SECRETIONS EARLIER. PT'S SON REMAINS RESTING IN BED, NO NEEDS ASSESSED, PT'S ATTENDS CLEAN AT THIS TIME, WILL CONTINUE PLAN OF CARE. CALL LIGHT IN REACH, BED IN LOWEST POSITION, PT'S FATHER IN THE ROOM.
--- NOTE | 2021-12-12 04:20 | NUR ---
PT LAYING IN BED AWAKE AT THIS TIME. TRACH MASK ON AT 5L, SPO2 95%, IVF INFUSING. PT VITALS TAKEN AT THIS TIME AND ASSESSMENT COMPLETED. COARSE CRACKLES PRESENT THROUGHOUT LOBES. OTHER ASSESSMENT FINDINGS UNCHANGED (SEE CHART). PT'S SECRETIONS SUCTIONED AT THIS TIME. PT REMAINS RESTING IN BED, ON 5L O2, NO FURTHER NEEDS ASSESSED AT THIS TIME, WILL CONTINUE PLAN OF CARE.
--- NOTE | 2021-12-12 06:21 | NUR ---
PT LAYING IN BED AWAKE AT THIS TIME, IVF INFUSING ORDERED. PT STILL ON 5L VIA TRACH MASK, SPO2 96%. PT ATTENDS SOILED WITH URINE AT THIS TIME. PERICARE DONE, NEW ATTENDS IN PLACE, 416ML OBTAINED VIA DIAPER WEIGHT. NO FURTHER NEEDS ASSESSED, PT REPOSITIONED UP IN BED WITH HELP FROM HIS FATHER. NO FURTHER NEEDS ASSESSED, PT'S FATHER AT THE BEDSIDE, WILL CONTINUE PLAN OF CARE.
--- NOTE | 2021-12-12 07:45 | NUR ---
PATIENT SHIFT REPORT RECIEVED FROM TANK BUILDER SUPERVISOR RN. PATIENT IS RESTING IN BED WITH HIS DAD AT THE BEDSIDE. PER REPORT PATIENT IS BASELINE NON-VERBAL. PATIENT HAS A TRACH PRESENT WITH 5L OXYGEN VIA TRACH MASK. FAMILY CALLS WHEN NEEDED. NO OTHER NEEDS AT THIS TIME. WILL CONTINUE TO CLOSELY MONITOR.
--- NOTE | 2021-12-12 08:00 | NUR ---
PATIENT WAS INCONTINENT OF URINE, DAD CHANGED ATTENDS. VITALS CHARTED. MOM IN ROOM AT THIS TIME
--- NOTE | 2021-12-12 09:55 | NUR ---
MED REC COMPLETE
--- NOTE | 2021-12-12 10:00 | NUR ---
PATIENT IS RESTING I NBED. PATIENTS MEDICATIONS GIVEN AND ASSESSMENT COMPLETED. PATIENT HAS A RIGHT ARM CONTRACTOR. PATIENTS BREATH SOUNDS ARE COARSE. PATIENT NEEDS OCCASIONAL SUCTIONING WHICH FAMILY HAS BEEN DOING. THIS RN AND STUDENT RN IN TO GIVE MEDICATIONS PER G-TUBE. PATIENT TOELRATED WELL. PATIENTS BOWEL TONES HYPOACTIVE. PATIENT HAS MOMENTS OF SMILING AND THEN TEARFUL. PATIENTS FAMILY IS AT THE BEDSIDE AND HEPLS WITH CARES. FAMILY IS PROVIDING KATI CARE AND ATTEND CHANGES AND REPOSITIONING. PATIENT IS TOLERATING WELL. NO OTHER NEEDS AT THIS TIME. WILL CONTINUE TO CLOSELY MONITOR.
--- NOTE | 2021-12-12 12:45 | NUR ---
Pt returned post discharge after aspiration of vomit. Mom is employed here and states they have all the equipment he needs. Pt will return home with parents when cleared medically. Pt has 700+ hours of state caregivers per month. Family have their own transport when pt goes home.
--- NOTE | 2021-12-12 12:45 | NUR ---
PATIENTS ASSESSMENT COMPLETED AND REMAINS UNCHANGED FROM PRIOR ASSESSMENT. PATIENTS FAMILY AND CAREGIVER IN AT THE BEDSIDE. FAMILY GOT PATIENT UP TO HIS WHEELCHAIR AND TOLERATED WELL. PATIENT MEDICATIONS GIVEN THROUGH G-TUBE AND PATIENT TOLERATED WELL. PATIENT IS SMILING AT TIMES. FAMILY DENIES ANY OTHER NEEDS AT THIS TIME. WILL CONTINUE TO CLOSELY MONITOR.
--- NOTE | 2021-12-12 13:39 | NUR ---
PT AWAKE, RESTING IN BED. PARENTS VISITING WITH THEIR RUBBER PRODUCTION MACHINE OPERATOR IN . PT IMPROVING, HOPE TO DC THURSDAY. GAVE ENCOURAGEMENT, HAD PRAYER. WILL BE AVAILABLE NEEDED
--- NOTE | 2021-12-12 16:42 | NUR ---
1600 TO PATIENT ROOM IN CCU, IMPLANTED BACLOFEN PUMP IN RIGHT LOWER QUADRANT. PUMP INTERROGATED BY AMALIA Guerrero RN, NOTED TO HAVE 7.1ML IN PUMP. PUMP ACCESSED USING STERILE TECHNIQUE WITH 22G 1" NEEDLE FROM KIT, ATTEMPTED WITH NO SUCCESS. ATTEMPED X2 WITH 22G 1.5" NEEDLE WITH SUCCESS. DROPS OBTAINED FROM PUMP. NEEDLE REPOSITIONED AND NO FLUID NOTED. PUMP REFILLED WITH 40ML BACLOFEN (80,000 MG) PER ORDER. NEEDLE DEACCESSED AND BANDAID PLACED. PUMP REINTERROGATED WITH NEW DOSE AND AMOUNT. PATIENT TOLERATED WELL AND REPORT GIVEN TO CCU RN. FAMILY AT BEDSIDE.
--- NOTE | 2021-12-12 17:28 | NUR ---
CALLED MD ODONNELL TO UPDATE THAT PATIENT HAS CONTINUED TO IMRPOVE THROUGHOUT THE DAY AND PER MD DOMÍNGUEZ THIS AM WE WOULD RE-EVALUATE TUBE FEEDS THIS AFTERNOON. PATIENTS VITALS HAVE BEEN STABLE. PATIENT IS REQUIRING MINIMAL SUCTIONING. WILL RESUME PATIENTS HOME TUBE FEED JUST AT A LOWER RATE. UPDATED PATIENTS FAMILY AND THEY ARE AGREEABLE TO PLAN OF CARE. NO OTHER NEEDS AT THIS TIME. WILL CONTINUE TO CLOSELY MONITOR.
--- NOTE | 2021-12-12 18:00 | NUR ---
THIS RN STARTED PATIENTS TUBE FEED AT 80MLS/HR. PATIENT TOLERATING WELL AT THIS TIME. WILL CONTINUE TO CLOSELY MONITOR.
--- NOTE | 2021-12-12 19:41 | NUR ---
Patient up in chair. Responsive and appropriate. Family members at bedside, state that they perform most of cares. Will continue to monitor.
--- NOTE | 2021-12-12 21:25 | NUR ---
Patient moved back to bed by family (father lifts him). Numerous friends and family at bedside. Will continue to monitor.
--- NOTE | 2021-12-12 22:42 | NUR ---
Patient sleeping. Mother in room. No signs or symptoms of discomfort. Will continue to monitor.
--- NOTE | 2021-12-13 01:59 | NUR ---
Patient sleeping with no signs or symptoms of discomfort. Will continue to monitor.
--- NOTE | 2021-12-13 05:53 | NUR ---
Patient sleeping. No signs or symptoms of discomfort. Mother at bedside. Will continue to monitor.
--- NOTE | 2021-12-13 07:45 | NUR ---
THIS RN RECIEVED REPORT FROM CRUTCHER HELPER RN MIKE. PER REPORT PATIENT HAD A GOOD NIGHT THROUGH THE NIGHT AND SLEPT ALL NIGHT. PATIENT WAS NOTED TO HAVE PERIODS OF BRADYCARDIA. PATIENTS MOM STAYED WITH PATIENT IN THE ROOM. NO OTHER NEEDS AT THIS TIME. WILL CONTINUE TO CLOSELY MONITOR.
--- NOTE | 2021-12-13 08:00 | NUR ---
PATIENTS MOM ALERTED STAFF THAT PATIENT IS NOT WAKING UP THIS AM. THSI RN IN TO ASSESS PATIENT. THIS RN IS UNABLE TO AWAKEN PATIENT EVEN WITH OBNOXIOUS STIMULI. MD MARI NOTIFIED. PATIENTS VITALS ARE STABLE. PATIENTS RR 20 AND SPO2 95% ON 3L VIA TRACH MASK. MD MARI WILL BE DOWN TO ASSESS PATIENT.
--- NOTE | 2021-12-13 10:38 | NUR ---
PATIENT RESTING IN BED, EYES CLOSED. PARENTS IN ROOM. VITALS CHARTED.
--- NOTE | 2021-12-13 11:00 | NUR ---
THIS RN HAS BEEN IN WITH PATIENT SINCE THIS AM WHEN FAMILY NOTIFIED STAFF OF PATIENTS CONDITION. PATIENTS STATUS REMAINS UNCHANGED AT THIS TIME. PER REPORT THIS AM PATIENT WAS GIVEN WRONG MEDICATION DOSE OF GLYCOPYRROLATE IN THE NIGHT. WHEN THIS RN WENT TO GIVE AM MEDICATIONS IT WAS NOTED SEVERAL OTHER MEDICATIONS WERE NOT AVAILABLE. PER PHARMACY THEY WERE DISPENCED LAST NIGHT. THIS RN CHECKED THE GARBAGE, IT APPEARS THROUGH PATIENT RECIEVED DEPAKENE 1000MG INSTEAD OF ONLY THE 500MG SCHEDULED ALONG WITH 15MG OF BETHANECHOL INSTEAD OF THE 2.5MG PER TUBE. PHARMACY AND MD MARI NOTIFIED OF FINDINGS. PORTABLE TRACK CREW CHIEF ELVIRA AND DUANE AU NOTIFIED OF INCIDENT THAT OCCURED ON DOT COMPLIANCE COORDINATOR. PATIENT REMAINS OBTUNDED, BUT REMAINS STABLE OTHERWISE. VALPROIC ACID ADDED ON TO AM LABS AND NOTED TO BE 58. BACLOFEN PUMP INTERIGATED AND AMALIA FORDE RN TO ASSESS PUMP TO ENSURE PROPER FUNCTION. PATIENTS FAMILY AT THE BEDSIDE.
--- NOTE | 2021-12-13 11:30 | NUR ---
MD MARI IN TO REVIEW PLAN OF CARE AND POTENTIAL MEDICATION ERROS MADE ON PEARL STRINGER. PLAN OF CARE BEING ARRANGED WITH PHARMCAY TO ALLOW ALL PATIENTS HOME MEDICATIONS TO BE GIVEN. PATIENTS HOME MEDICATIONS CHECKED BYT PHARMACY AND NOW AT THE BEDSIDE. STAFF WILL SCAN MEDICATIONS ON ADMINISTRATION AND PATIENTS PARENTS WILL HELP WITH ADMINISTRATION. PHARMACY, MD MARI, AND DUANE AU RN AWARE OF PLAN OF CARE. WILL CONTINUE TO CLOSELY MONTIOR.
--- NOTE | 2021-12-13 12:10 | NUR ---
PT VVS STABLE, PT IN MEDS DEEP SLEEP. PARENTS AT , RALPH CHIRINOSP IN TO ASSIST WITH MEDS. THEIR ROLLING MILL OPERATOR HELPER IN WELL. HAD PRAYER, WILL FOLLOW
--- NOTE | 2021-12-13 12:15 | NUR ---
LE 09 RECEIVED PHONE CALL FROM HOSPITAL ASKING TO COME IN AND ASSESS PT'S BACLOFEN PUMP. 0915 TC TO [employer] TO DISCUSS POSSIBLE OVERDOSE R/T PT VERY SLEEPY TODAY. [employer] REP ADVISED TO CALL BACLOFEN REP. [id number] TC TO BACLOFEN REP AND DISCUSSED POSSIBLE OVERDOSE OF BACLOFEN. REP TOOK AN ADVERSE EVENT REPORT AND STATED HE'D EMAIL ME INFO. 1000 INTEROGATED PT'S SYNCHROMED II PUMP TO SHOW EXPECTED RESERVOIR VOLUME OF 39.5ML. 1030 DISCUSSED WITH PT'S NURSE ABOUT REACCESSING PUMP TO MAKE SURE VOLUME IS CORRECT. WILL WAIT FOR DR TO MAKE DECISION. [id number] INTEROGATED PT'S SYNCHROMED II PUMP TO SHOW EXPECTED RESERVOIR VOLUME OF 39.5ML. ACCESSED PUMP PER PROTOCAL WITH STERILE TECHNIQUE. ACTUAL RESERVOIR VOLUME OF 38ML. REFILLED PUMP WITH MEDICINE WITHDRAWN. DEACCESSED AND BANDAIDE OVER SITE. REINTEROGATED SYNCHROMED II PUMP AND CHANGED BACLOFEN VOLUME TO 38ML. DR AND PT'S RN IN ROOM DURING REFILL TALKING WITH PARENTS. 1145 RECEIVED INFO IN EMAIL FROM [employer] AND BACLOFEN REP WITH NO SUGGESTIONS ON DOSE TO LOWER PT TO. [address] Charu MURRY TO DISCUSS PT'S CASE AND GET SUGGESTIONS ON DOSE TO LOWER PT TO. HE SUGGESTED LOWERING BACLOFEN DOSE FROM 1,311MCG/DAY TO 1,000MCG/DAY AND GETTING FULL WORK UP ON PT. 1150 SPOKE WITH PARENTS AND OK WITH LOWERING DOSE. INTEROGATED SYNCHROMED II PUMP TO SHOW DAILY DOSE AT 1,311MCG/DAY. LOWERED DAILY DOSE TO 1,000MCG/DAY. REINTEROGATED SYNCHROMED II PUMP WITH NEW DOSE. PRINT OUT'S GIVEN TO PARENTS AND PUT IN PT'S CHART. 1215 REPORT GIVEN TO PARENTS AND PT'S RN. WILL BE FIRE INSPECTOR ALL WEEKEND FOR ANY PROBLEMS WITH PT.
--- NOTE | 2021-12-13 12:30 | NUR ---
THIS SUBACUTE NURSE IN ROOM TO BLADDER SCAN PATIENT. 369ML NOTED AND REPORTED TO RN. NO VOID FROM PATIENT. FATHER AT BEDSIDE, PATIENT REMAINS RESTING IN BED WITH EYES CLOSED.
--- NOTE | 2021-12-13 12:30 | NUR ---
MD MARI REQUESTED AN EEG. WILL SEE IF THIS IS AN OPTION. NO OTHER CHANGES HAVE BEEN NOTED AT THIS TIME. PATIENT HAS NOT URINATED. PER PATIENTS FAMILY PATIENT DOES TEND TO HOLD HIS URINE WHEN HE IS SLEEPING HARD. WILL BLADDER SCAN AND UPDATE MD MARI. PLAN WAS MADE THIS AM TO HOLD MORNING DOSES OF DEPAKENE AND BETHANECHOL PER MD. IVANIA FORDE WORKED WITH PATIENTS BACLOFEN PUMP FOR SEVERAL HOURS. PATIENTS PUMP WAS ULTIMETLY REASSESSES TODAY AND FLUID LEVELS VERIFIED. THE BACLOFEN PUMP DOSE WAS DECREASED. MD MARI NOTIFIED OF CHANGES. NO FURTHER CHANGE IN PATIENT CONDITION.
--- NOTE | 2021-12-13 13:00 | NUR ---
PATIENT OPENED HIS EYES WHILE MD MARI WAS IN THE UNIT AND SUDDENLY BECAME TACHYCARDIC WITH HR 150 AND THEN VOMITED FROM HIS MOUTH AND TRACH. RT TO BEDSIDE. ZOFRAN GIVEN. PATIENT SUCTIONED. PATIENTS SPO2 DROPPED INITIALLY, BUT T5HEN HE QUICKLY RECOVERED. PATIENTS OXYGEN AT 5L. MD AT BEDSIDE TO UPDATE ABOUT PLAN FOR EEG. WILL GET TEST DONE AN AWAIT RESULTS. MD NOTIFIED OF BLADDER SCAN OF 300MLS. NO NEW ORDERS. WILL CONTINUE TO CLOSELY MONITOR.
--- NOTE | 2021-12-13 14:45 | NUR ---
PATIENTS EEG COMPLETED. STAFF SHOULD RECIEVE RESULTS IN 2 HOURS. MD MARI NOTIFIED. PATIENT CONTINUES TO BE UNROUSABLE. WILL AWAIT RESULTS OF EEG. NO FURTHER CHANGES AT THIS TIME. PATIENTS FAMILY HAS CONTINUED TO BE UPDATED ON PLAN OF CARE THROUGHOUT THE DAY. THEY ARE VERY INVOLVED IN PATIENTS CARE.
--- NOTE | 2021-12-13 15:00 | NUR ---
VITALS CHARTED. AXILLARY TEMP OF 96.7 AND 96.9 REPORTED TO RALPH MAS. FAMILY IN ROOM AT THIS TIME.
--- NOTE | 2021-12-13 15:30 | NUR ---
RASCH BACK TO SEE PATIENT. PATIENTS CONDITION REMAINS UNCHANGED. PER MD WILL ORDER A HEAD CT. FAMILY UPDATED OF PLAN OF CARE.
--- NOTE | 2021-12-13 16:30 | NUR ---
THIS RN, EDWINA RN, AND KATHARINE RN DOWN WITH PATIENT TO CT. PATIENT HAD ANOTHER EPISODE OF VOMITING. SUCTION EQUIPMENT WAS SET UP AND READY. PATIENT TOELRATEED WELL. PATIENT WOKE WHEN MOVING ON THE CT SCANNER. PATIENT HAS ONLY HAD HIS EYES OPEN AND DOES NOT FOLLOW VOICE OR TRACK STIMULI. PATIENT BACK IN HIS ROOM. BEDDING CHANGED. AND RT CHANGED HIS SECUREMENT DEVICE TO TRACH. THIS RN AT THE BEDSIDE WILL AWAIT NEW ORDERS. NO RESULTS FROM EEG YET AT THIS TIME.
--- NOTE | 2021-12-13 17:00 | NUR ---
MD MARI RECIEVED RESULTS AND NOTIFIED FAMILY OF RESULTS. PATIENT WAS NOT NOTED TO BE HAVING SIEZURES ON EEG. THIS RN REBLADDER SCANNED APTIENT AND NOTED TO HAVE 500MLS PRESENT. NEW ORDERS FOR XRAY AND HILL CATH. PATIENT CONTINUES TO OPEN EYES, BUT DOES NOT TRACK STIMULI. WILL CONTINUE TO CLOSELY MONITOR.
--- NOTE | 2021-12-13 17:24 | NUR ---
Update from RN. Family and Dr. Mendoza in the room. I spoke with Seema earlier in the portillo. She denies needs. Awaiting Nahum to awaken.
--- NOTE | 2021-12-13 18:07 | NUR ---
HILL CATHETER PLACED WITH 475MLS OUTPUT NOTED. UA SENT. PATIENT TOLERATED WELL. PATIENTS FAMILY AT THE BEDSIDE. XRAY WAS DONE AT THE BEDSIDE PRIOR TO CATHETER INSERTED. DR MARI HERE AT THE BEDSIDE TO UPDATE FAMILY ON PLAN OF CARE. SEE NEW ORDERS. WILL CONTINUE TO CLOSELY MONITOR.
--- NOTE | 2021-12-13 19:45 | NUR ---
THIS RN GAVE REPORT TO WARDROBE COORDINATOR RN. FAMILY AT THE BEDSIDE. REVIEWED PLAN OF CARE NO OTHER ENEDS AT THIS TIME.
--- NOTE | 2021-12-13 21:10 | NUR ---
CALL TO DR MARI TO DISCUSS URINE OUTPUT, PARENTS QUESTIONS REGARDING EKG AND RULE OUT OH AND PLAN FOR THE NIGHT. ORDER GIVEN TO INCREASE IVF TO 100ML/HR AND GIVE AN ADDITIONAL DOSE OF 4MG IV ZOFRAN IF NEEDED. CONVEYED PLAN TO PARENTS AND THEY ARE IN AGREEMENT.
--- NOTE | 2021-12-13 21:55 | NUR ---
EKG DONE BY RT. PARENTS REMAIN AT BEDSIDE, PT LYING WITH EYES CLOSED, RR 30, SPO2 95% ON 5L.
--- NOTE | 2021-12-14 00:02 | NUR ---
URINE OUTPUT HAS PICKED UP SINCE IVF INCREASED, 125ML OVER THE LAST THREE HOURS.
--- NOTE | 2021-12-14 00:14 | NUR ---
PT REPOSITIONED ONTO RIGHT SIDE. PARENTS BOTH REMAIN IN ROOM, AWAKE AND ATTENTIVE. ASSESSMENT DONE. PT MAKES MINIMAL RESPONSE TO ANY STIMULI INCLUDING STERNAL RUBBING. PUPILS VERY SLUGGISH, DOES MAKE SOME EYELID MOVEMENTS A COUPLE OF TIMES.
--- NOTE | 2021-12-14 02:08 | NUR ---
IN TO CHECK ON PT AND HANG IV ANTIBIOTIC. PT REMAINS SLEEPING, HR 50'S, SPO2 95% ON 5L AND RR 21.
--- NOTE | 2021-12-14 03:07 | NUR ---
IN TO CHECK ON PT AND REPOSITION HIM. PT STARTLES WITH MOVEMENT OF BOSSTING HIM IN BED, EYES OPEN WIDE AND THEN THEY CLOSE AGAIN, NO OTHER RESPONSE AFTER THAT. FATHER IN ROOM, SLEEPING, MOM HAS GONE HOME.
--- NOTE | 2021-12-14 04:10 | NUR ---
PT LOOKED SUDDENLY LIKE HE NEEDED TO COUGH OR HAVE EMESIS, BEGAN GAGGING SOME AND FACE BECAME MORE RED. ORAL SUCTIONING DONE AND RT CALLED FOR ASSISTANCE. NO EMESIS, BUT PT DID HAVE SOME SPUTUM FROM TRACH SUCTIONING.
--- NOTE | 2021-12-14 04:20 | NUR ---
RT IN TO ASSIST WITH SUCTIONING, LAB IN TO DRAW VBG.
--- NOTE | 2021-12-14 04:50 | NUR ---
PT SUDDENLY AWOKE, OPENED EYES, SEEMS TO BE MOVING HEAD AND EYES WITH PURPOSE WELL GRASPING HIS FATHERS FINGER. PUPILS NOW MUCH LARGER AND MORE RESPONSIVE THAN THEY WERE EARLIER. PT LOOKED SOMEWHAT DISTRESSED AND HAD INCREASED BP'S, PT REPOSITIONED FOR COMFORT AND REASSURED BY RN AND FATHER AND HE GRADUALLY BECAME LESS DISTRESSED LOOKING AND HIS BLOOD PRESSURES CAME DOWN WELL.
--- NOTE | 2021-12-14 05:46 | NUR ---
DR MARI UPDATED ON PT STATUS, NOW WAKING UP AND RESPONSIVE, URINE OUTPUT 20-40ML/HR, RECENT BP'S AND FATHERS REQUEST FOR TYLENOL. ORDER GIVEN FOR AM LABS AND TYLENOL.
--- NOTE | 2021-12-14 06:24 | EKG ---
[facility] [address] [facility] [place] [address] Signed Normal sinus rhythm Left ventricular hypertrophy with QRS widening Abnormal ECG When compared with ECG of 12-JUL-2017 17:45, Vent. rate has decreased BY 37 BPM Confirmed by RADHA MARI MD ([id number]) on 12/14/2021 6:24:11 AM Electronically Signed By: RADHA MARI MD 12/14/21 0624 PATIENT NAME: ANNAJESÚSEKATERINA ALL Electrocardiogram DATE OF : [birth year] PHYSICIAN: RADHA MARI MD REPORT #: [id number] REPORT IS CONFIDENTIAL AND NOT TO BE RELEASED WITHOUT AUTHORIZATION
--- NOTE | 2021-12-14 06:40 | NUR ---
PT GIVEN 640MG TYLENOL PER TUBE PER FATHERS REQUEST FOR GENERALIZED DISCOMFORT. PT LYING WITH EYES CLOSED, RESP 20 SPO2 94% ON 4L/O2, DOES CONTINUE TO OPEN EYES SPONTANEOUSLY AND WITH VERBAL STIUMULI. URINE OUTPUT HAS DROPPED OFF AGAIN, WILL CONT TO MONITOR.
--- NOTE | 2021-12-14 07:01 | NUR ---
DR MARI IN TO SEE PT
--- NOTE | 2021-12-14 07:11 | NUR ---
PT HAD ANOTHER EPISODE OF NEEDING SUCITONING, BOTH PARENTS AT BEDSIDE WELL DR GRAHAM-PT MAKING SOME GURGLING SOUNDS IN THROAT AND FACE BECOMING RED, LOOKS BETTER AND CALM AGAIN AFTER SUCTIONING DONE. SATS REMAIN >90% WHILE SUCTIONING DONE. URINE OUTPUT HAS DROPPED OFF FOR THE LAST 2 HOURS, DR MARI AWARE.
--- NOTE | 2021-12-14 07:45 | NUR ---
PATIENT SHIFT REPORT RECIEVED FROM AIRCRAFT TIME CLERK RN. PATIENT RESTING IN BED WITH HIS PARENTS AT THE BEDSIDE. PER AIRCRAFT TIME CLERK PATIENT HAD AN OKAY NIGHT. PATIENTS MENTAL STATUS HAS NOT CHANGED MUCH. PATIENT DID HAVE ONE EPISODE OF WAKING UP AND LOOKING AROUND MORE, BUT IS NOW BACK TO RESTING. URINE OUTPUT HAS BEEN LOW. MD IS AWARE. WILL CONTINUE TO CLOSELY MONITOR.
--- NOTE | 2021-12-14 09:30 | NUR ---
PER REPORT PATIENT WAS MORE AWAKE THIS AM. PATIENT HAS BEEN LETHARGIC SINCE THIS RN HAS BEEN HERE. PATIENT ONLY OPENING HIS EYES FOR A FEW MOMENTS. NYSTAGMUS NOTED. PATIENT OCCASIONALLY WIDE EYED. PATIENTS BREATH SOUNDS ARE COARSE AND SECRETIONS NOTED AT TIMES. SUCTION SET UP AT THE BEDSIDE FOR PATIENT. PATIENTS FAMILY PROVIDING SUCTION NEEDED. BOWEL TONES ACITVE. PATIENTS MOM VENTED HIS G-TUBE PRIOR TO GIVING MEDS THIS AM. FAMILY NOTED HE HAS NOT HAD A BOWEL MOVEMENT TODAY AND WOULD LIKE TO GIVE HIM AN ENEMA PER THEIR HOME ROUTINE. MD MARI WAS IN TO VISIT WITH FAMILY. PLAN OF CARE ESTABLISHED. WILL CONTINUE TO CLSOELY MONITOR.
--- NOTE | 2021-12-14 11:00 | NUR ---
PATIENT RESTING AT THIS TIME. NO CHANGES HAVE BEEN NOTED IN PATIENTS CONDITION. PATIENTS FAMILY REMAINS AT THE BEDSIDE. THIS RN CONTINUING TO MONITOR URINE AND VITALS. THESE ALL REMAIN STABLE. FAMILY HAS BEEN HELPING REPOSITION PATIENT EVERY 2 HOURS. PATIENTS SKIN CONTINUED TO LOOK GOOD WITH NO ISSUES. RT HAS BEEN IN AND OUT OF PATIENTS ROOM [facility]ROUGHOUT [facility]. WILL CONTINUE TO CLOSELY MONITOR.
--- NOTE | 2021-12-14 12:28 | NUR ---
LE [address] MURRY TO DISCUSS PT'S BACLOFEN PUMP. NO NEW ORDERS. 1210 SPOKE WITH PARENTS ABOUT TC TO DR. ORDAZTED SYNCHROMED II PUMP TO SHOW EXPECTED RESERVOIR VOLUME OF 37.5ML. PRINT OUT GIVEN TO PARENTS AND PUT IN CHART.
--- NOTE | 2021-12-14 13:00 | NUR ---
THIS RN HAS BEEN IN PATIENTS ROOM FOR PAST HOUR. FLEET ENEMA GIVEN IN THIS TIME. DISCUSSED WITH FAMILY PLAN OF CARE. PATIENTS CONDITION REMAINS UNCHANGED AT THIS TIME. WILL CONTINUE TO CLOSELY MONITOR.
--- NOTE | 2021-12-14 14:00 | NUR ---
CALLED LLOYD MARI AND UPDATED ON PATIENTS CONDITION AND FAMILIES FRUSTRATION. MD HERE TO REVIEW PLAN OF CARE WITH PATIENTS FAMILY. PATIENTS FAMILY WORRIED ABOUT PATIENTS CONDITION AND HIM NOT CONTINUING TO SHOW MUCH CHANGE AT THIS TIME. PATIENT HAS BEEN DROWSY MOST OF THE DAY UNIT ABOUT 30 MINUTES AGO. PATIENT OPENED HIS EYES AND HAS MAINTAINED THEM OPEN. PATIENT DOES HAVE NYSTAGMUS. MD IS AWARE. WE WILL CONTINUE TO ENCOURAGE PATIETN AND SUPPORT PATIENT HERE AT THIS TIME. NO FURTHER ORDERS. MD FEELS THIS WILL JUST TAKE SOME TIME AND HE WILL SLOWLY CONTINUE TO GET BETTER. FAMILY IS AGREEABLE TO PLAN OF CARE. WILL CONTINUE TO CLOSELY MONITOR. THIS RN HAS BEEN AT [facility] BEDSIDE MOST THE AFTERNOON. PATIENT HAS HAD VISITORS MOST OF THE AFTERNOON.
--- NOTE | 2021-12-14 14:00 | NUR ---
CALLED LLOYD MARI AND UPDATED ON PATIENTS CONDITION AND FAMILIES FRUSTRATION. MD HERE TO REVIEW PLAN OF CARE WITH PATIENTS FAMILY. PATIENTS FAMILY WORRIED ABOUT PATIENTS CONDITION AND HIM NOT CONTINUING TO SHOW MUCH CHANGE AT THIS TIME. PATIENT HAS BEEN DROWSY MOST OF THE DAY UNIT ABOUT 30 MINUTES AGO. PATIENT OPENED HIS EYES AND HAS MAINTAINED THEM OPEN. PATIENT DOES HAVE NYSTAGMUS. MD IS AWARE. WE WILL CONTINUE TO ENCOURAGE PATIETN AND SUPPORT PATIENT HERE AT THIS TIME. NO FURTHER ORDERS. MD FEELS THIS WILL JUST TAKE SOME TIME AND HE WILL SLOWLY CONTINUE TO GET BETTER. FAMILY IS AGREEABLE TO PLAN OF CARE. WILL CONTINUE TO CLOSELY MONITOR. THIS RN HAS BEEN AT [facility] BEDSIDE MOST THE AFTERNOON. PATIENT HAS HAD VISITORS MOST OF THE AFTERNOON.
--- NOTE | 2021-12-14 16:00 | NUR ---
SPOKE WITH PATIENTS FAMILY AND WOULD LIKE TO HOLD BETHANECHOL, BUT WILL GIVE HIS EVEING DOSE. PATIENT IS ABOUTTO HAVE BED BATH AND BE TURNED AND DO NOT WANT TO RISK ASPIRATION AT THIS TIME. FAMILY CONTINUES TO BE ENCOURAGED BY SMALL IMPROVEMENTS IN PATIENTS NEUROLOGICAL CONDITION. WILL CONTINUE TO CLOSELY MONITOR.
--- NOTE | 2021-12-14 17:40 | NUR ---
THIS RN HAS BEEN IN WITH PATIENT AND FAMILY FOR PAST HOUR. BED BATH COMPLETED. [facility] C[facility] CARE PROVIDED, NEW LINEN PLACED. PATIENTS G-PORT WAS ACCESSED AND VENTED PRIOR TO TURNING AND REPOSITIONING. PATIENT HAS HAD NO EPISODES OF EMESIS TODAY. UPDATED MD EARLIER THAT THIS RN GAVE ZOFRAN PRIOR TO REPOSITIONING EARLIER TO PREVENT EMESIS EPISODE. PHARMACIST DUANE IN TO SEE PATIENT AND DISCUSS MEDICATION ADMINISTRATION WITH PATIETNS FAMILY. PATIENT ASSESSMENT COMPLETED. PATIENT IS MORE AWAKE THIS AFTERNOON. PATIENT CONTINUES TO HAVE NYSTAGMUS BILATERALLY. PATIENT DOES APPEAR TO BE TRACKING MORE THIS AFTERNOON. PER FAMILY WILL HOLD HIS BETHINOCHOL MEDICATION AND WILL GIVE PM DOSE. ALL QUESTIONS ANSWERED. NO OTHER CHANGES NOTED AT THIS TIME. WILL CONTINUE TO CLOSELY MONITOR.
--- NOTE | 2021-12-14 18:15 | NUR ---
PATIENT RESTING IN BED WITH HIS FAMILY AT THE BEDSIDE. PATIENT HAS SMILED SEVERAL TIMES THIS EVEING. THIS IS MUCH IMPROVEMENT THAN NOTED PRIOR IN THE SHIFT. PATIENT HAS CONTINUED TO BE MORE AWAKE THIS AFTERNOON. PATIENT DOES HAVE NYSTAGMUS, BUT HAS IMPROVED SINCE HIS EARLY AFTERNOON. PATIENTS URINE OUTPUT IS AROUND 15-20MLS PER HOUR. MD MARI NOTIFIED NO OTHER ORDERS AT THIS TIME. RASCH IN TO SEE PATIENT. MD IS ENCOURAGED TO SEE THESE IMPROVEMENTS THIS EVENING. NO OTHER CHANGES. WILL CONTINUE TO CLOSELY MONTIOR.
--- NOTE | 2021-12-14 19:30 | NUR ---
REPORT RECEIVED FROM MARYBETH ROSAS AND IN TO BEDSIDE FOR HANDOFF. PT AWAKE IN BED, PARENTS IN THE ROOM WITH FRIENDS AND FAMILY. PT ON O2/TRACH MASK/45% AND SPO2 94% HR 70'S, NO SIGNS OF DISTRESS.
--- NOTE | 2021-12-14 20:15 | NUR ---
RT IN TO DO SUCTIONING AND ASSIST WITH PTS CPT, PTS OWN CPT VEST PLACED BY HIS PARENTS. ASSESSMENT DONE, LUNGS HAVE RHONCHI LEFT GREATER THAN RIGHT, GOOD AIR MOVEMENT HEARD. PT ON HUMIDIFIED OXYGEN 45% WITH TRACH MASK AND RR 12 AND SPO2 92%. PT HAS MORE COLOR TODAY AND IS NOT COOL TO THE TOUCH HE WAS LAST NIGHT. URINE OUTPUT STILL MARGINAL, WILL CONTINUE TO MONITOR HOURLY. PT PREMEDICATED WITH 4MG IV ZOFRAN PRIOR TO SUCTIONING BY RT AND CPT VEST. PT IS AWAKE AND ALERT AND RESPONSIVE, MOM STATES HE IS "ALMOST BUT NOT QUITE" AT HIS BASELINE. PT DOES NOT APPEAR TO BE IN ANY DISTRESS. FRIENDS AND FAMILY ARE IN THE ROOM VISITING WITH PARENTS AND PT. DISCUSSION WITH PARENTS REGARDING EARLIER CONCERNS FOR TRANSFERRING TO A DIFFERENT FACILITY AND THEY REPORT THE DR MARI HAS REASSURED THEM AND ANSWERED ALL QUESTIONS, THEY DO NOT WISH TO BE TRANSFERRED AT THIS TIME AND FEEL COMFORTABLE WITH PLAN OF CARE AND WILL LET STAFF KNOW IF THIS CHANGES.
--- NOTE | 2021-12-14 21:18 | NUR ---
IN TO ASSIST WITH HS MEDS, MEDS SCANNED AND MOM GAVE THEM TO PT VIA [employer]. PT THEM REPOSITIONED. MOM DOES NOT WANT TO GIVE PT TRAZADONE AT THIS TIME, WANTS TO SEE IF PT WILL GO TO SLEEP ON HIS OWN FIRST AND GIVE IT LATER IF HE DOES NOT GO TO SLEEP BY 2200. PT REPOSITIONED ONTO LEFT SIDE.
--- NOTE | 2021-12-14 21:30 | NUR ---
PTS HR JUMPED UP TO 120'S, IN TO CHECK ON HIM AND HE WAS LOOKING SOMEWHAT DISTRESSED, FACE RED, PARENTS UP TO ASSIST WITH SUCTIONING. HR DOWN SOME TO 110'S, THEN MOM THINKS HE MAY BE UNCOMFORTABLE SO PT REPOSITIONED. STILL LOOKING DISTRESSED, HE THEN STARTS COUGHING SOME AND HAS A LARGE VERY PRODUCTIVE COUGH, SUCTIONING DONE, SATS DROPPED SOME INTO 80S THEN CAME UP HE RECOVERED. RT IN TO BEDSIDE TO ASSIST WELL. AFTER SUCTIONING AND COUGHING SPELL PT LOOKS COMFORTABLE AND HAPPY, SMILED AT ONE POINT AND PARENTS ARE SAYING HE IS ALERT AND DOES NOT SEEM LIKE HE WANTS TO GO TO SLEEP. WILL CONT TO MONITOR.
--- NOTE | 2021-12-14 22:00 | NUR ---
MOM COMES OUT TO REQUEST PT GET THE TRAZADONE NOW, IN TO GIVE TRAZADONE, MOM GIVES IT PER TUBE. PT HAD ANOTHER EPISODE OF COUGHING AND NEEDING TO BE SUCTIONED. SUCTIONED BY PARENTS, REPOSITIONED AND THEN HE SEEMS TO STETTLE DOWN.
--- NOTE | 2021-12-15 00:23 | NUR ---
IN TO DO ASSESSMENT, URINE OUTPUT LOW WILL CONT TO MONITOR FOR NOW. RT IN TO DO NEB TX AND ASSESS PT. SPO2 92%, PT SLEEPING, RESP EVEN AND UNLABORED.
--- NOTE | 2021-12-15 01:46 | NUR ---
IN TO CHECK ON PT, PT RESTING WITH EYES CLOSED, RESP EVEN AND UNLABORED SPO2 92%. MOM IN ROOM, SLEEPING ON COUCH.
--- NOTE | 2021-12-15 02:59 | NUR ---
PT CONT TO REST WITH EYES CLOSED, RESP RATE 12 UNLABORED, HR 62, SPO2 91% ON 50% HUMIDIFIED O2/TRACH MASK.
--- NOTE | 2021-12-15 04:20 | NUR ---
IN TO DO ASSESSMENT, PT REMAINS SLEEPING. LUNGS HAVE EXP WHEEZE. SPO2 94% RESP RATE 12, EVEN AND UNLABORED.
--- NOTE | 2021-12-15 05:13 | NUR ---
PT AWAKENS FOR LAB DRAW AND SUCTIONING BY MOM.
--- NOTE | 2021-12-15 07:45 | NUR ---
REPORT RECIEVED, CARE OF PT ASSUMED AT THIS TIME. IN ROOM TO CHECK ON PT. PT AWAKE AND ALERT, MOTHER AWAKE AT BEDSIDE. SPO2 = 94% ON 50% FIO2. HEART RATE IN THE 50-60S AT REST. RESPIRATIONS EVEN AND UNLABORED. PT AFEBRILE AT THIS TIME. RT NOW IN ROOM TO ADMINISTER BREATHING TX. PLAN OF CARE FOR DAY ESTANBLISHED WITH PT, PT'S MOTHER, RT, AND THIS RN.
--- NOTE | 2021-12-15 09:02 | NUR ---
PLAN OF CARE ESTABLISHED WITH DR MARI AND FAMILY. HILL CATHETER DC'D AT THIS TIME. WELL TOLERATED. PT NOW UP IN CHAIR. ORAL CARE AND TRACH CARE PROVIDED. SPO2=92% ON 50% FIO2. LUNGS SOUND COARSE, BUT GOOD AIR MOVEMENT NOTED THROUGH ALL AIR MUÑOZ.
--- NOTE | 2021-12-15 11:30 | NUR ---
ASSESSMENT COMPLETED. PT SITTING UP IN CHAIR. FAMILY AT BEDSIDE. LUNGS SOUND VERY COARSE WITH RHONCHI THROUGHOUT ALL AIR MUÑOZ.PT REQUIRING OCCASIONAL SUCTIONING. SPO2 = 93% ON TRACH MASK AT 50% FIO2. PLAN OF CARE FOR AFTERNOON ESTABLISHED. ALL QUESTIONS ANSWERED. CALL LIGHT WITHIN REACH. WILL CONTINUE TO MONITOR.
--- NOTE | 2021-12-15 13:35 | NUR ---
IN ROOM TO CHECK ON PT. PT REMAINS UP IN WHEELCHAIR. ASSISTED WITH REPOSITIONING. LUNGS SOUNDS IMPROVED SINCE ADMINISTRATION OF BREATHING TX. CALL LIGHT WITHIN REACH. FAMILY REMAINS AT BEDSIDE. WILL CONTINUE TO MONITOR.
--- NOTE | 2021-12-15 16:27 | NUR ---
ASSESSMENT COMPLETED. PT ALERT, MOTHER AND FATHER AT BEDSIDE. LUNGS SOUND COARSE AND DIM, EXPIRATORY WHEEZE NOTED. SPO2 = 93% PT HAS YET TO VOID. DR. MARI NOTIFIED. NO NEW ORDERS AT THIS TIME.
--- NOTE | 2021-12-15 17:57 | NUR ---
PT VOIDED. KATI CARE COMPLETED. PT NOW UP IN CHAIR. TUBE FEEDING INFUSING. CALL LIGHT WITHIN REACH. PT FAMILY AT BEDSIDE. WILL CONTINUE TO MONITOR.
--- NOTE | 2021-12-15 19:30 | NUR ---
REPORT RECEIVED FROM DARYL ROSAS. PT IS SITTING UP IN HIS WHEELCHAIR WITH SEATBELT ON. FATHER IN ROOM. ON 50% O2 VIA TRACH MASK, SPO2 99%. PT IS ALERT AND AWAKE AND RESPONDS WITH BLINKING HIS EYES WITH PURPOSE IN RESPONSE TO QUESTIONS. TUBE FEEDING IS INFUSING INTO GTUBE. IVF INFUSING AT 75ML/HR.
--- NOTE | 2021-12-15 19:45 | NUR ---
IN TO DO ASSESSMENT, LUNGS HAVE RHONCHI THROUGHOUT AND EXP WHEEZE ON LEFT SIDE. PLAN FOR THE NIGHT DISCUSSED WITH PARENTS, PLAN TO FINISH TUBE FEEDING THEN MOVE PATIENT TO BED AND DO CPT AND CHANGE ATTENDS. RT IN TO DO NEB TX AND DISCUSS RT PLAN FOR THE NIGHT WITH HOPE OF TITRATING O2 DOWN.
--- NOTE | 2021-12-15 20:43 | NUR ---
PT HAS JUST FINISHED HIS CPT WITH HOME VEST, TUBE FEEDINGS STOPPED BY MOM.
--- NOTE | 2021-12-15 21:24 | NUR ---
PT PLACED BACK IN BED BY PARENTS, ATTENDS CHANGED PT HAD VOID 331ML IN IT, MEDS GIVEN BY MOM. PT IS STILL AWAKE BUT STARTING TO LOOK MORE AND MORE DROWSY.
--- NOTE | 2021-12-15 21:49 | NUR ---
PT SUDDENLY HAD O2 SATS DROP DOWN TO 70'S, IN TO CHECK ON HIM, HE WAS ASLEEP BUT RESP LOOKING MORE LABORED. SUCTIONING DONE AND EVENTUALLY SATS CAME BACK UP TO 92% AND RESP MUCH LESS LABORED. PT DID OPEN HIS EYES DURING THIS AND LOOK SLIGHTLY DISTRESSED BUT WENT BACK TO SLEEP QUICKLY AFTER SUCTIONING AND BACK TO LOOKING RESTUFL AND COMFORTABLE.
--- NOTE | 2021-12-16 00:10 | NUR ---
IN TO DO ASSESSMENT AND CHECK ON PT. HE HAS BEEN MAINTANING O2 SATURATIONS 92-94% ON 50% FIO2/TRACH MASK. CONTINUES TO REST WITH EYES CLOSED, RR 20, EVEN AND UNLABORED, HR 50'S. LUNGS REMAIN UNCHANGED WITH SCATTERED RHONCHI AND EX WHEEZE. IVF INFUSING, SITE LOOKS INTACT.
--- NOTE | 2021-12-16 02:24 | NUR ---
IN TO CHECK ON PT, RR 24, RESP EVEN AND UNLABORED, SPO2 91%, DOES NOT SOUND LIKE PT NEEDS SUCTIONING. IV ABX HUNG.
--- NOTE | 2021-12-16 03:15 | NUR ---
SATS DROPPED DOWN TO 80'S IN TO SUCTION PT WITH RETURN OF SMALL AMOUNT OF SPUTUM. SATS EVENTUALLY BACK UP TO 90-93%. RT IN TO GIVE NEB TX.
--- NOTE | 2021-12-16 06:12 | NUR ---
IN TO DRAW LABS, PT AWAKE. INC LARGE AMOUNT OF URINE, ATTENDS CHANGED AND KATI CARED DONE, PT REPOSITIONED ALL WITH FATHERS HELP. PT APPEARS CALM AND INTERACTIVE WITH FATHER AND THIS RN. NO REQUESTS FROM FATHER. PT REMAINS ON TRACH MASK O2 AT 50% WITH SPO2 96%. ORAL SUCTIONING DONE.
--- NOTE | 2021-12-16 08:00 | NUR ---
PATIENT AWAKE IN BED, THIS CONTRACT FORESTER IN TO ASSIST PATIENTS DAD WITH AM CARES AND BED CHANGE. VITALS AND I&OS CHARTED.
--- NOTE | 2021-12-16 08:06 | NUR ---
IN ROOM FOR ASSESSMENT AND TO ASSIST WITH MEDICATION ADMINISTRATION. PT ALERT. FATHER PLACED PATIENT INTO WHEELCHAIR AT THIS TIME. LUNGS SOUND COARSE WITH RHONCHI THROUGHOUT. PT NOW DOING PERCUSSIVE THERAPY AND RECIEVING A BREATHING FROM RT. IV ABX INFUSING. FATHER TO ADMINISTER G-TUBE MEDICATIONS. DENIES FURTHER NEEDS AT THIS TIME.
--- NOTE | 2021-12-16 09:00 | NUR ---
Pt. up in wc sleeping. Dad in the room. He cont. to deny needs. States they are working on getting a vapotherm throught the state. He states they are feeling better as [place].
--- NOTE | 2021-12-16 09:27 | NUR ---
DR MARI IN ROOM TO UPDATE PT ON PLAN OF CARE. PLAN ESTABLISHED TO CONTINUE TO MONITOR PT THROUGH THE MORNING AND THEN REASSES FOR POTENTIAL DISCHARGE. FAMILY AGREEABLE WITH PLAN. IV POTASSIUM NOW INFUSING. CALL LIGHT WITHIN REACH. WILL CONTINUE TO MONITOR.
--- NOTE | 2021-12-16 11:10 | NUR ---
PT UP IN CHAIR. MOM AT BEDSIDE. PT AWAKE AND ALERT. POTASSIUM FINISHED INFUSING. PT MOTHER DENIES ANY NEEDS AT THIS TIME
[2021-12-16] MEDS ORDERED: AMOX TR-K250 MG/5 M PT (11:17)
[2021-12-16] MEDS ORDERED: ONDANSETRON HCL4 MG PO (12:10)
--- NOTE | 2021-12-16 12:35 | NUR ---
DISCHARGE INSTRUCTIONS REVIEWED WITH FAMILY. ALL QUESTIONS ANSWERED. IV DC'D. FINAL SET OF VITAL SIGNS TAKEN.
--- NOTE | 2021-12-16 13:07 | NUR ---
PT SITTING IN CHAIR-GRINNED WHEN I WALKED IN TO THE . MOM JESSIE IN , VERY PLEASED WITH RECOVERY. ADMITTED IT HAS BEEN A VERY TRYING WEEKEND, BUT VERY THANKFUL FOR GOD'S FAITHFULNESS AND HELP FROM [facility] STAFF. JESSIE HOPES TO DC LATER TODAY. GAVE BLESSING AND WILL FOLLOW
== END 2021-12-16 12:45 | disposition home or self-care (01) | DRG 177 ==
LOC: ED 21:45 → CCU 21:47 → ED 12-12 00:25 → CCU 12-13 15:50
PROVIDERS: ADMIT Internal Medicine; ATTEND Internal Medicine
DX: J69.0 Pneumonitis due to inhalation of food and vomit (principal); G93.41 Metabolic encephalopathy; J96.21 Acute and chronic respiratory failure with hypoxia; K59.2 Neurogenic bowel, not elsewhere classified; E87.2 Acidosis; E87.0 Hyperosmolality and hypernatremia; G80.9 Cerebral palsy, unspecified; Z20.822 Contact with and (suspected) exposure to COVID-19; N31.9 Neuromuscular dysfunction of bladder, unspecified; K21.9 Gastro-esophageal reflux disease without esophagitis; G40.909 Epilepsy, unspecified, not intractable, without status epilepticus; Z93.0 Tracheostomy status; Z98.890 Other specified postprocedural states; Z74.01 Bed confinement status; Z88.8 Allergy status to other drugs, medicaments and biological substances; Z79.899 Other long term (current) drug therapy
CPT/HCPCS: 31720; 36415; 36600; 70450; 71045; 74018; 80048; 80053; 80164; 81001; 82803; 83735; 83880; 84100; 85025; 86140; 87502; 93005; 93010; 94640; 94799; 99285-25; A9270; C9803; J0295; J0475; J2405; J3480; J7060; J7121; U0003

== ENCOUNTER 2022-01-04 13:55 | Emergency (ER) | payer OTHER ==
[~2022-01-04] VITALS: Ht 154.9 cm; Wt 56.9 kg
[~2022-01-04 13:55] MED LIST changes: +AMOX TR-K250 MG/5 M PT; +ONDANSETRON HCL4 MG PO
--- OUTSIDE RECORDS SUMMARY | 2022-01-04 13:58 | XMS ---
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 PHONE: Unknown CANDACE ROBLES [facility] 11/30/2019-Current PHONE: Unknown GEETHA RODRÍGUEZ [facility] Current PHONE: Unknown Sukhdeep has no Care Guidelines for this patient. E.Angie VISIT COUNT (12 MO.) 3 [facility] TOTAL 3 NOTE: Visits indicate total known visits. ED/UCC VISIT TRACKING (12 MO.) 01/04/2022 13:55 [facility] TYPE: Emergency COMPLAINT: - HIGH HEART RATE 12/11/2021 21:46 [facility] TYPE: Emergency COMPLAINT: - LOW OXYGEN LEVELS 11/29/2021 21:22 [facility] TYPE: Emergency COMPLAINT: - DIFFICULTY BREATHING INPATIENT VISIT TRACKING (12 MO.) 12/13/2021 15:50 [facility] TYPE: Critical Care COMPLAINT: - ASPIRATION DIAGNOSES: - Neuromuscular dysfunction of bladder, unspecified - Cerebral palsy, unspecified - Acidosis - Neurogenic bowel, not elsewhere classified - Bed confinement status - Tracheostomy status - Other specified postprocedural states - Tracheostomy status - Pneumonitis due to inhalation of food and vomit - Other specified postprocedural states - Neurogenic bowel, not elsewhere classified - Allergy status to other drugs, medicaments and biological substances - Bed confinement status - Metabolic encephalopathy - Allergy status to other drugs, medicaments and biological substances - Cerebral palsy, unspecified - Acute and chronic respiratory failure with hypoxia - Epilepsy, unspecified, not intractable, without status epilepticus - Gastro-esophageal reflux disease without esophagitis - Metabolic encephalopathy - Contact with and (suspected) exposure to COVID-19 - Other intermediate accountant (current) drug therapy - Hyperosmolality and hypernatremia - Epilepsy, unspecified, not intractable, without status epilepticus - Other intermediate accountant (current) drug therapy - Hyperosmolality and hypernatremia - Acute and chronic respiratory failure with hypoxia - Contact with and (suspected) exposure to COVID-19 - Gastro-esophageal reflux disease without esophagitis - Acidosis - Neuromuscular dysfunction of bladder, unspecified 11/29/2021 23:[address] [facility] [place] TYPE: Medical Surgical COMPLAINT: - ACUTE RESPIRATORY FAILURE, PNEUMONIA DIAGNOSES: - Pneumonitis due to inhalation of food and vomit - Tracheostomy status - Acute and chronic respiratory failure with hypoxia - Other specified postprocedural states - Gastro-esophageal reflux disease without esophagitis - Epilepsy, unspecified, not intractable, without status epilepticus - Allergy status to other drugs, medicaments and biological substances - Other group home (current) drug therapy - Other specified postprocedural states - Tracheostomy status - Gastro-esophageal reflux disease without esophagitis - Cerebral palsy, unspecified - Contact with and (suspected) exposure to COVID-19 - Acute and chronic respiratory failure with hypoxia - Allergy status to other drugs, medicaments and biological substances - Other group home (current) drug therapy - Epilepsy, unspecified, not intractable, without status epilepticus - Contact with and (suspected) exposure to COVID-19 - Cerebral palsy, unspecified [email or web address]
--- NOTE | 2022-01-05 08:59 | EKG ---
[facility] [address] [facility] [place] [address] Signed Sinus tachycardia Rightward axis Borderline ECG When compared with ECG of 13-DEC-2021 20:15, Vent. rate has increased BY 41 BPM QRS duration has decreased T wave inversion no longer evident in Anterior leads Confirmed by AVANI DOMÍNGUEZ MD ([id number]) on 01/05/2022 8:58:59 AM Electronically Signed By: AVANI DOMÍNGUEZ MD 01/05/22 0859 PATIENT NAME: LORAINEEKATERINA ALL Electrocardiogram DATE OF : [birth year] PHYSICIAN: AVANI DOMÍNGUEZ MD REPORT #: [id number] REPORT IS CONFIDENTIAL AND NOT TO BE RELEASED WITHOUT AUTHORIZATION
== END 2022-01-04 18:33 | disposition home or self-care (01) ==
LOC: ED 13:55
DX: R00.0 Tachycardia, unspecified (principal); Z88.8 Allergy status to other drugs, medicaments and biological substances; Z79.899 Other long term (current) drug therapy; Z20.822 Contact with and (suspected) exposure to COVID-19
CPT/HCPCS: 36415; 71045; 80053; 81001; 83605; 85025; 87040; 87502; 93005; 93010; 99285-25; C9803; J7040; U0003

== ENCOUNTER 2022-10-25 12:52 | Inpatient (IN) | payer OTHER ==
[~2022-10-25] VITALS: Ht 154.9 cm; Wt 54.0 kg
--- OUTSIDE RECORDS SUMMARY | 2022-10-25 14:40 | XMS ---
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 E.D. VISIT COUNT (12 MO.) 4 [facility] TOTAL 4 NOTE: Visits indicate total known visits. ED/UCC VISIT TRACKING (12 MO.) 10/25/2022 12:53 [facility] TYPE: Emergency COMPLAINT: - HEART RATE PROBLEM 01/04/2022 13:55 [facility] TYPE: Emergency COMPLAINT: - HIGH HEART RATE DIAGNOSES: - Palpitations - Tachycardia, unspecified - Allergy status to other drugs, medicaments and biological substances - Other intermediate (current) drug therapy - Contact with and (suspected) exposure to COVID-19 12/11/2021 21:46 [facility] TYPE: Emergency COMPLAINT: - LOW OXYGEN LEVELS 11/29/2021 21:22 [facility] TYPE: Emergency COMPLAINT: - DIFFICULTY BREATHING INPATIENT VISIT TRACKING (12 MO.) 12/13/2021 15:50 [facility] TYPE: Critical Care COMPLAINT: - ASPIRATION DIAGNOSES: - Epilepsy, unspecified, not intractable, without status epilepticus - Tracheostomy status - Neuromuscular dysfunction of bladder, unspecified - Hyperosmolality and hypernatremia - Other specified postprocedural states - Gastro-esophageal reflux disease without esophagitis - Acidosis - Contact with and (suspected) exposure to COVID-19 - Allergy status to other drugs, medicaments and biological substances - Contact with and (suspected) exposure to COVID-19 - Bed confinement status - Acidosis - Metabolic encephalopathy - Hyperosmolality and hypernatremia - Other specified postprocedural states - Acute and chronic respiratory failure with hypoxia - Cerebral palsy, unspecified - Other termite inspector (current) drug therapy - Pneumonitis due to inhalation of food and vomit - Epilepsy, unspecified, not intractable, without status epilepticus - Cerebral palsy, unspecified - Acute and chronic respiratory failure with hypoxia - Neurogenic bowel, not elsewhere classified - Metabolic encephalopathy - Neurogenic bowel, not elsewhere classified - Gastro-esophageal reflux disease without esophagitis - Bed confinement status - Other intermediate (current) drug therapy - Tracheostomy status - Neuromuscular dysfunction of bladder, unspecified - Allergy status to other drugs, medicaments and biological substances 11/29/2021 23:[address] [facility] [place] TYPE: Medical Surgical COMPLAINT: - ACUTE RESPIRATORY FAILURE, PNEUMONIA DIAGNOSES: - Cerebral palsy, unspecified - Gastro-esophageal reflux disease without esophagitis - Acute and chronic respiratory failure with hypoxia - Allergy status to other drugs, medicaments and biological substances - Other intermediate (current) drug therapy - Other specified postprocedural states - Contact with and (suspected) exposure to COVID-19 - Tracheostomy status - Pneumonitis due to inhalation of food and vomit - Gastro-esophageal reflux disease without esophagitis - Other specified postprocedural states - Contact with and (suspected) exposure to COVID-19 - Epilepsy, unspecified, not intractable, without status epilepticus - Allergy status to other drugs, medicaments and biological substances - Other termite inspector (current) drug therapy - Epilepsy, unspecified, not intractable, without status epilepticus - Tracheostomy status - Cerebral palsy, unspecified - Acute and chronic respiratory failure with hypoxia [email or web address]
--- NOTE | 2022-10-25 15:55 | NUR ---
26 YEAR OLD MALE PATIENT ADMITTED TO ROOM 128 IN CCU FROM ED VIA STRETCHER UNDER DR. MARI WITH DX OF SEPSIS. PATIENT WITH HX OF CEREBRAL PALSY. IS TOTAL LIFT KAM LIFT/OVERHEAD LIFT. 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 HAS HAD SINCE TRACH 2017. SUCTIONED FOR SMALL AMOUMT OF BROWNISH SPUTUM. FAMILY MEMBERS ARE AT BEDSIDE. PARENTS SAID THEY NOTICED INCREASED RESP AT HOME AROUND 1100 AM THIS MORNING AND RAPID HR OF 160. PATIENT RECIEVED TYLENOL IBPROFEN AT HOME. PARENT THEN BROUGHT THEIR SON TO ED. PATIENT HAS LONG HEALTH HX. ADMISSION PROCESS STARTED.
--- NOTE | 2022-10-25 17:00 | NUR ---
PHOTO OF COCCYX AREA TAKEN, PICTURES TO CHART.
[2022-10-25] MEDS ORDERED: XOPENEX CO1.25 MG/0. INH (17:19)
--- NOTE | 2022-10-25 17:30 | NUR ---
SUCTIONED FOR SMALL AMOUNT OF SPUTUM, THIS DONE BY PATIENT MOTHER.
--- NOTE | 2022-10-25 18:00 | NUR ---
NUTREN INFUSING AT 210 ML/HR. PATIENT FATHER IS IN ROOM.
--- NOTE | 2022-10-25 19:30 | NUR ---
SHIFT REPORT RECEIVED. THIS RN IN ROOM WITH DAYSHIFT RN FOR BEDSIDE HAND-OFF. PATIENT IS ALERT; NEURO BASELINE PER FAMILY. VS STABLE. PATIENT'S FATHER AT BEDSIDE. NO NEEDS AT THIS TIME.
--- NOTE | 2022-10-25 20:30 | NUR ---
PATIENT MEDS PROVIDED PER ORDER. PATIENT'S FATHER INVOLVED IN VERIFIY DOSES. MEDS GIVEN PT BY PATIENT'S FATHER AFTER BEING PREPARED BY THIS RN. G-TUBE FLUSHED WITH WATER. PATIENT'S FATHER AND THIS RN SUCTIONED PATIENT 2 SEPARTE TIMES DURING THIS TIME DUE TO LARGE AMOUNT OF THICK SECREATIONS. PATIENT RECEIVED VEST THERAPY PER HIS HOME REGIMEN. RT IN ROOM FOR NEB TREATMENT AND TO SET UP HUMIDIFICATION FOR THE O2. ALL TRACH CARE DONE BY FAMILY WITH THIS RN ASSIST. ATTENDS IN PLACE AND DRY. VS STABLE. IVF PER ORDER, SITE WNL. PRN TYLNEOL AND MOTRIN PROVIDED FOR AXILLARY TEMP 100.0 F. NO OTHER NEEDS AT THIS TIME. FAMILY AT BEDSIDE.
--- NOTE | 2022-10-25 22:30 | NUR ---
PATIENT'S FAMILY AT BEDSIDE. PATIENT APPEARS TO BE RESTING COMFORTABLE. VS STABLE. HR 100-110. RR 14-16. TEMP WNL.
--- NOTE | 2022-10-26 00:02 | NUR ---
PATIENT APPEARS RESTFUL, EYES CLOSED. VS STABLE. TOLERATING BASELINE HOME O2. 4L PER TRACH MASK.
--- NOTE | 2022-10-26 02:30 | NUR ---
NEW BAG IVF STARTED. IV SITE WNL. PATIENT APPEARS COMFORTABLE, EYES CLOSED. VS STABLE.
--- NOTE | 2022-10-26 04:00 | NUR ---
PATIENT COUGHING AND APPEARS TO NEED TRACH SUCTIONED. RT CALLED. PATIENT ALSO HAS WET ATTEND. KATI CARE DONE AND FRESH ATTEND IN PLACE. PATIENT;S FAMILY RESTING ON COUGH IN ROOM. PATIENT TOLERATES WELL. RT SUCTIONED THICK RICK SECREATIONS. PATIENT ALERT AND RESPONDS TO INTERACTIONS. IV SITE WNL. VS STABLE. REPOSITIONED PATIENT FOR COMFORT.
--- NOTE | 2022-10-26 04:41 | NUR ---
PT TRACH SXN'D WITH THICK TENACIOUS CREAMY SPUTUM REMOVED, MODERATE AMOUNT OUT, BS WENT FROM RHONCOROUS TO RALES WITH AUDIBLE CLEARING OF ADVENTIOUS BS.
--- NOTE | 2022-10-26 05:30 | NUR ---
THIS RN ASSISTED LAB IN MORNING DRAW. PATIENT TOLERATED WELL. FAMILY DENIED ANY NEEDS.
--- NOTE | 2022-10-26 07:30 | NUR ---
REPORT RECEIVED. PATIENT FATHER IS NOW LIFTING PATIENT OOB TO CHAIR. VEST THERAPY APPLIED BY FATHER. IVF INFUSING. O2 VIA AIRVO IN PLACE AT 40% FIO2 AND 60L TO TRACH.
--- NOTE | 2022-10-26 08:00 | NUR ---
ASSESSMENT COMPLETE. TRACH SUCTIONED BY FATHER. DR. MARI HERE TO SEE PATIOENT AND TALK WITH PATEINT DAD ABOUT POC FOR THE DAY. ROUTINE MEDICATIONS GIVEN VIA G-TUBE.
--- NOTE | 2022-10-26 09:00 | NUR ---
TUBE FEEDING HUNG. PUREED FOOD GIVEN WELL.
--- NOTE | 2022-10-26 10:09 | NUR ---
CONTINUES TO SIT IN CHAIR, NO DISTRESS NOTED. PARENTS ARE IN ROOM. IVF PATENT TUBE FEEDING FOR BREAKFAST TIME INFUSED.
--- NOTE | 2022-10-26 11:00 | NUR ---
O2 SAT DOWN TO 70'S. SUCTIONED BY FATHER, O2 INCREASED TO 80. RT CALLED. RT THEN INSTILLED NS, SUCTIONED DEEPER WITH RETURN OF THICK MUCUS PLUG.
--- NOTE | 2022-10-26 11:10 | NUR ---
O2 DECREASED TO 40%. PATIENT BROTHER LIFTED PATIENT BACK TO BED. PATIENT W/O RESP DISTRESS.
--- NOTE | 2022-10-26 12:00 | NUR ---
ASSESSMENT COMPLETE. PATIENT IS RESTING IN BED.
--- NOTE | 2022-10-26 13:33 | NUR ---
TUBE FEEDING STARTED. PATIENT IS IN BED, RESTING WITH HOB ELEVATED. NO URINE OF YET THIS SHIFT. REPOSITIONED TO RIGHT RIGHT SIDE.
--- NOTE | 2022-10-26 16:00 | NUR ---
INCONT OF VERY LARGE AMOUNT OF URINE. ATTENDS AND BED LINEN CHANGED.
--- NOTE | 2022-10-26 19:45 | NUR ---
PATIENT SITTING UP IN HIS WC. APPEARS ALERT AND INTERACTING WITH FAMILY. MULTIPLE FAMILY MEMBERS IN ROOM. DENIED NEEDS AT THIS TIME.
--- NOTE | 2022-10-26 20:30 | NUR ---
DISCUSSED PLAN OF CARE AND EVENING CARES WITH PATIENT'S PARENTS. RT IN ROOM. NO NEEDS AT THIS TIME.
--- NOTE | 2022-10-26 21:30 | NUR ---
SCHEDULED MEDS PREPARED BUT THIS RN; ADMINISTERED BY PATIENT'S MOTHER AFTER ALL DOSES VERIFIED. PATIENT UP IN CHAIR, MOVING TO BED SOON. EVENING VEST TREATMENT AND NEBS ARE DONE. TRACH CARE PER FAMILY. PATIENT TOLERATING AIRPO SETTINGS PER RT. PATIENT APPEARS COMFORTABLE. REQUIRES OCCATIONAL SUCTIONING BY PARENTS. IV FLUIDS IN STAND BY FOR EASE OF EVENING CARES.
--- NOTE | 2022-10-26 22:30 | NUR ---
PATIENT NOW RESTING IN BED, EYES CLOSED. ATTENDS CHANGED BY FAMILY. WEIGHT USED FOR OUTPUT AND PATIENT HAD SMALL BM. NO OTHER NEEDS AT THIS TIME.
--- NOTE | 2022-10-27 00:30 | NUR ---
PATIENT APPEARS TO BE SLEEPING SOUNDLY. DOES NOT APPEAR TO NEED SUCTION AT THIS TIME. TOLERATING AIRPO; SETTINGS PER RT. PATIENT VS STABLE. IV FLUIDS PER ORDER, SITE WNL. MOTHER AT BEDSIDE.
--- NOTE | 2022-10-27 02:00 | NUR ---
PATIENT APPEARS COMFORTABLE. EYES CLOSED. VS STABLE. ATTENDS IS DRY. DOES NOT APPEAR TO NEED SUCTIONING. FAMILY AT BEDSIDE.
--- NOTE | 2022-10-27 05:15 | NUR ---
LAB IN FOR MORNING DRAW. PATIENT'S MOTHER ASSISTED IN SUCTIONING. ATTENDS VERIFIED TO BE DRY. NO NEEDS AT THIS TIME.
--- NOTE | 2022-10-27 07:30 | NUR ---
REPORT RECEIVED. PATIENT MOTHER GOT PATIENT OOB TO CHAIR, PATIENT IS GETTING TUBE FEEDING AT THIS TIME. O2 VIA AIRPRO CONTINUE AT 40% FIO2/60L. SUCTIONED FOR ORAL SECRETIONS. IVF INFUSING AT 100 ML/HR. PATIENT MOTEHR IS TALKING ABOUT INCREASED EDEMA IN PATIENT FEET, THIS NOTED. RECIEVING VEST THERAPY NOW.
--- NOTE | 2022-10-27 08:00 | NUR ---
ASSESSMENT DONE. LUNGS REMAIN COURSE. TRACH SUCTIONED FOR MOD AMOUNT OF THIN WHITE SPUTUM. CONTINUES TO RECEIVE TUBE FEEDING. ROUTINE MEDICATIONS GIVEN VIA G-TUBE.
[2022-10-27] MEDS ORDERED: ESOMEPRAZOLE MA20 M1 GT (08:45)
--- NOTE | 2022-10-27 08:45 | NUR ---
DR. MARI HERE TO SEE PATIENT. ORDERS RECIEVED.
--- NOTE | 2022-10-27 09:10 | NUR ---
LASIX GIVEN ORDERED. IVF OFF. ABX INFUSING. PARENTS IN ROOM.
--- NOTE | 2022-10-27 09:15 | NUR ---
PATIENT AWAKE IN PERSONAL WHEELCHAIR, PARENTS AND RN IN ROOM. VITALS CHARTED..ROOM TIDIED AND GARBAGE EMPTIED.
--- NOTE | 2022-10-27 10:00 | NUR ---
INC OF LARGE AMOUNT OF URINE. LIFTED BACK TO BED BY FATHER. ATTENDS CHANGED. SUCTIONED FOR MOD AMOUNT OF THIN SPUTUM.
--- NOTE | 2022-10-27 12:00 | NUR ---
ASSESSMENT UNCHANGED. TUBE FEEDING INFUSING. PARENTS REMAIN IN ROOM.
--- NOTE | 2022-10-27 12:00 | NUR ---
MED REC COMPLETE
--- NOTE | 2022-10-27 12:57 | NUR ---
OVER TO CHECK ON PATIENT AND FAMILY. CASE MANAGEMENT STAFF FAMILAR WITH PATIENT FROM PRIOR ADMISSIONS. PER PATIENT MOTHER JESSIE NO CASE MANAGEMENT CONCERNS AT THIS TIME. PATIENT WILL DISCHARGE HOME WITH FAMILY AND CAREGIVERS. WILL CONTINUE TO CHECK ON PATIENT DURING HIS VISIT.
--- NOTE | 2022-10-27 13:47 | NUR ---
PTS' FATHER AT BS, PT IN CHAIR, RESPONDS TO VOICE WITH EYE CONTACT. FATHER FEELING MUCH BETTER ABOUT PT TODAY-FEELING KEEPING UNTIL TOMORROW IS RIGHT POC. MOTHER HAS GONE HOME TO FRESHEN UP. HAD PRAYER WITH BOTH, WILL FOLLOW NEEDED
--- NOTE | 2022-10-27 15:00 | NUR ---
PARENT LIFTED PATIENT OOB TO CHAIR. I TOLD PARENTS WE CAN USE OVERHEAD LIFT, THEY WISH TO LIFT PATIENT.
--- NOTE | 2022-10-27 17:16 | NUR ---
PATIENT AWAKE IN PERSONAL WHEELCHAIR, FATHER IN ROOM. VITALS CHARTED. NO OTHER NEEDS AT THIS TIME
--- NOTE | 2022-10-27 20:00 | NUR ---
Bedside report received from outgoing nurse, RALPH Garcia. Initial assessment performed with no critical measures necessary. All vital signs stable with no indications of respiratory distress, fever or pain. Patient sitting in wheelchair with parents at bedside. No additional needs identified.
--- NOTE | 2022-10-27 22:00 | NUR ---
Patient resting in bed comfortably with family at bedside. All vital signs stable. No additional needs identified.
--- NOTE | 2022-10-28 | NUR ---
Patient sleeping comfortably with no needs identified. All vital signs stable with no indications of respiratory distress, fever or pain. No change since initial assessment.
--- NOTE | 2022-10-28 02:00 | NUR ---
Patient and family asleep. All vital signs stable. No needs identified.
--- NOTE | 2022-10-28 04:00 | NUR ---
Repeat assessment performed with no acute changes since previous assessment unless noted. All vital signs stable with no complaints or indications of further respiratory distress, fever or pain. Patient's father remains at bedside. Will continue to monitor.
--- NOTE | 2022-10-28 06:00 | NUR ---
Patient resting comfortably with father at bedside. All vital signs stable. No additional needs identified.
--- NOTE | 2022-10-28 07:30 | NUR ---
REPORT RECIEVED. PATIENT IS SITTING UP CHAIR, TUBE FEEDING INFUSING.
--- NOTE | 2022-10-28 07:30 | NUR ---
REPORT RECIEVED. REMAINS ON BIPAP. HILL CATH PATENT WITH CLEAR YELLOW URINE NOTED. BUMEX GTT INFUSING AT 0.5 MG/HR. VERY SOMULENT AT THIS TIME. WILL TALK WITH DR. MARI ABOUT POSSIBLE NEED TO HAVE ABG DRAWN.
--- NOTE | 2022-10-28 07:40 | NUR ---
ROUTINE MEDICATIONS GIVEN VIA GTUBE.
--- NOTE | 2022-10-28 07:50 | NUR ---
Spoke with pt and his parents. They are planning on dc to home today and deny any needs. Caregiver will be in to assist pt and pt will dc to home today.
--- NOTE | 2022-10-28 08:00 | NUR ---
ASSESSMENT COMPLETE. FAMILY LOOKING FORWARD TO BEING DISCHARGED TODAY.
--- NOTE | 2022-10-28 08:00 | NUR ---
ASSESSMENT COMPLETE. BIPAP SETTINGS CHANGED BY RT, CURRENTLY ON 06/03, RR-18. ABGS TO BE DRAWN THIS AM.
--- NOTE | 2022-10-28 08:40 | NUR ---
DR. MARI HERE, PATIENT WILL BE DISCHARGED TODAY.
[2022-10-28] MEDS ORDERED: LEVOFLOXACIN500 MG PT (08:46)
--- NOTE | 2022-10-28 09:00 | NUR ---
PATIENT AWAKE IN PERSONAL WHEELCHAIR. FAMILY IN ROOM. NO NEDS AT THIS TIME.
--- NOTE | 2022-10-28 09:12 | NUR ---
RT HERE TO DRAW ABG.
--- NOTE | 2022-10-28 11:30 | NUR ---
PATIENT DRESSED IN PERSONAL CLOTHING, D/C VITALS AND I&OS CHARTED. FAMILY IN ROOM
--- NOTE | 2022-10-28 12:30 | NUR ---
DISCHARGE INSTRUCTIONS GIVEN WITH PATIENT PARENTS UNDERSTANDING. DISCHARGED VIA W/C.
--- NOTE | 2022-10-28 13:24 | NUR ---
PT ASLEEP IN HIS CHAIR. MOM JESSIE AND CG ROBERTO CARLOS PRESENT AT PTS' SIDE. BOTH FEEL MUCH BETTER ABOUT PT'S CONDITION TODAY. HAD GOOD VISIT, PRAYED WITH ALL AND GAVE BLESSING. DAD SEGUN ARRIVED I WAS LEAVING. PT AWAKENED TO SOUND OF DAD'S VOICE. WILL FOLLOW NEEDED
== END 2022-10-28 12:08 | disposition home or self-care (01) | DRG 871 ==
LOC: ED 12:52 → CCU 15:29
PROVIDERS: ADMIT Internal Medicine; ATTEND Internal Medicine
DX: A41.9 Sepsis, unspecified organism (principal); J18.9 Pneumonia, unspecified organism; G80.9 Cerebral palsy, unspecified; Z20.822 Contact with and (suspected) exposure to COVID-19; K21.9 Gastro-esophageal reflux disease without esophagitis; G40.909 Epilepsy, unspecified, not intractable, without status epilepticus; Z97.8 Presence of other specified devices; Z93.1 Gastrostomy status; Z93.0 Tracheostomy status; Z98.890 Other specified postprocedural states; Z98.2 Presence of cerebrospinal fluid drainage device; Z88.8 Allergy status to other drugs, medicaments and biological substances; Z79.899 Other long term (current) drug therapy
CPT/HCPCS: 36415; 51701; 71045; 74018; 80048; 80053; 81001; 83605; 85025; 87040; 87088; 87502; 94640; 94760; 94799; 99285-25; A9270; J0456; J0696; J1940; J7030; J7040; J7060; U0003

== ENCOUNTER 2023-05-01 10:35 | Inpatient (IN) | payer OTHER ==
[~2023-05-01] VITALS: Ht 154.9 cm; Wt 53.4 kg
[~2023-05-01 10:35] MED LIST changes: +ESOMEPRAZOLE MA20 M1 GT; +LEVOFLOXACIN500 MG PT; +XOPENEX CO1.25 MG/0. INH
--- OUTSIDE RECORDS SUMMARY | 2023-05-01 10:36 | XMS ---
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 Amaury VISIT COUNT (12 MO.) 3 [facility] TOTAL 3 NOTE: Visits indicate total known visits. ED/UCC VISIT TRACKING (12 MO.) 05/01/2023 10:36 [facility] [place] TYPE: Emergency COMPLAINT: - R LEG HOT/RED 03/27/2023 22:33 [facility] [place] TYPE: Emergency COMPLAINT: - LOW STATS DIAGNOSES: - Allergy status to other drugs, medicaments and biological substances - Atelectasis - Contact with and (suspected) exposure to COVID-19 - Other terminal superintendent (current) drug therapy - Pneumonitis due to inhalation of food and vomit - Shortness of breath 10/25/2022 12:53 [facility] [place] TYPE: Emergency COMPLAINT: - HEART RATE PROBLEM INPATIENT VISIT TRACKING (12 MO.) 10/25/2022 15:29 [facility] [place] TYPE: Critical Care COMPLAINT: - SEPSIS DIAGNOSES: - Allergy status to other drugs, medicaments and biological substances - Allergy status to other drugs, medicaments and biological substances - Cerebral palsy, unspecified - Cerebral palsy, unspecified - Contact with and (suspected) exposure to COVID-19 - Contact with and (suspected) exposure to COVID-19 - Epilepsy, unspecified, not intractable, without status epilepticus - Epilepsy, unspecified, not intractable, without status epilepticus - Gastro-esophageal reflux disease without esophagitis - Gastro-esophageal reflux disease without esophagitis - Gastrostomy status - Other alf (current) drug therapy - Other terminal superintendent (current) drug therapy - Other specified postprocedural states - Other specified postprocedural states - Pneumonia, unspecified organism - Pneumonia, unspecified organism - Presence of cerebrospinal fluid drainage device - Presence of cerebrospinal fluid drainage device - Presence of other specified devices - Sepsis, unspecified organism - Tracheostomy status - Tracheostomy status [email or web address]
[2023-05-01 12:45] LABS: HEMATOCRIT 37.3 % (35.0-50.0)
[2023-05-01 12:47] LABS: BASOPHILS 0.1 % (0-2); HEMOGLOBIN 11.9 g/dL (12.0-18.0); LYMPHOCYTES 4.8 % (24-44); MCH 29.5 (27-36); MONOCYTES 8.8 % (0-12); NEUTROPHILS 86.3 % (39-80); PLATELET COUNT 177 K/uL (140-440); RBC 4.05 M/ul (4.3-5.7); RDW 13.5 (10.5-15.0)
[2023-05-01 12:59] LABS: ALBUMIN 2.4 g/dL (3.4-5.0); ALBUMIN/GLOBULIN RATIO 0.45 (1.1-2.4); ANION GAP 9.8 (7-21); BILIRUBIN, TOTAL 0.2 ng/dL (0.2-1.0); BUN/CREATININE RATIO 38.88 (6.0-28.6); CALCIUM 9.2 mg/dL (8.5-10.1); CREATININE, SERUM 0.36 mg/dL (0.70-1.30); POTASSIUM 3.8 mmol/L (3.5-5.1); PROTEIN, TOTAL 7.7 g/dL (6.4-8.2)
[2023-05-01 13:02] LABS: LACTIC ACID, BLOOD 1.3 mmol/L (0.4-2.0)
[2023-05-01 14:54] VITALS: BP 105/68
[2023-05-01] MEDS ORDERED: FLEET ENEMA133 ML PR (15:21)
[2023-05-01 15:30] VITALS: BP 101/59
[2023-05-01 16:00] VITALS: BP 111/51
[2023-05-01 16:07] LABS: INFLUENZA B NAA NEGATIVE (NEGATIVE); RESPIRATORY SYNCYTIAL VIR NAA NEGATIVE (NEGATIVE)
[2023-05-01 22:31] VITALS: BP 146/75
[2023-05-02 01:18] VITALS: BP 112/47
[2023-05-02 05:27] VITALS: BP 143/55
[2023-05-02 05:32] LABS: BASOPHILS 0.1 % (0-2); EOSINOPHILS 0.3 % (0-6); HEMATOCRIT 31.5 % (35.0-50.0); HEMOGLOBIN 10.3 g/dL (12.0-18.0); LYMPHOCYTES 13.9 % (24-44); MCH 29.9 (27-36); MCHC 32.6 g/dl (30-36); MCV 91.7 fl (81-99); NEUTROPHILS 74.7 % (39-80); PLATELET COUNT 189 K/uL (140-440); RBC 3.43 M/ul (4.3-5.7); RDW 13.5 (10.5-15.0)
[2023-05-02 05:46] LABS: ALBUMIN 1.9 g/dL (3.4-5.0); ALBUMIN/GLOBULIN RATIO 0.43 (1.1-2.4); BILIRUBIN, TOTAL 0.1 ng/dL (0.2-1.0); BUN/CREATININE RATIO 48.14 (6.0-28.6); CALCIUM 8.5 mg/dL (8.5-10.1); CREATININE, SERUM 0.27 mg/dL (0.70-1.30); PROTEIN, TOTAL 6.3 g/dL (6.4-8.2)
[2023-05-02 10:01] VITALS: BP 138/68
[2023-05-02 14:11] VITALS: BP 131/63
[2023-05-02 17:35] VITALS: BP 132/72
[2023-05-02 21:37] VITALS: BP 133/66
[2023-05-03 05:20] VITALS: BP 118/69
[2023-05-03 05:29] LABS: BASOPHILS 0.2 % (0-2); EOSINOPHILS 0.8 % (0-6); HEMATOCRIT 31.6 % (35.0-50.0); LYMPHOCYTES 17.2 % (24-44); MCH 29.2 (27-36); MCHC 31.8 g/dl (30-36); MONOCYTES 11.9 % (0-12); NEUTROPHILS 69.9 % (39-80); PLATELET COUNT 232 K/uL (140-440); RBC 3.44 M/ul (4.3-5.7); RDW 13.6 (10.5-15.0)
[2023-05-03 05:45] LABS: ALBUMIN 1.8 g/dL (3.4-5.0); ALBUMIN/GLOBULIN RATIO 0.38 (1.1-2.4); ANION GAP 7.5 (7-21); BILIRUBIN, TOTAL 0.1 ng/dL (0.2-1.0); BUN/CREATININE RATIO 38.09 (6.0-28.6); CALCIUM 8.6 mg/dL (8.5-10.1); CREATININE, SERUM 0.21 mg/dL (0.70-1.30); POTASSIUM 4.5 mmol/L (3.5-5.1); PROTEIN, TOTAL 6.5 g/dL (6.4-8.2)
[2023-05-03 10:54] VITALS: BP 119/64
[2023-05-03 18:46] VITALS: BP 119/54
[2023-05-03 21:22] VITALS: BP 131/64
[2023-05-04 05:32] VITALS: BP 111/59
[2023-05-04 05:48] LABS: MCHC 32.4 g/dl (30-36)
[2023-05-04 05:53] LABS: HEMATOCRIT 33.8 % (35.0-50.0); MCH 29.5 (27-36); PLATELET COUNT 258 K/uL (140-440); RBC 3.72 M/ul (4.3-5.7); RDW 13.8 (10.5-15.0)
[2023-05-04 06:03] LABS: ALBUMIN 1.8 g/dL (3.4-5.0); ALBUMIN/GLOBULIN RATIO 0.38 (1.1-2.4); ALKALINE PHOSPHATASE 79 U/L (46-116); ALT (SGPT) 4 U/L (14-59); ANION GAP 10.3 (7-21); AST (SGOT) 10 U/L (15-37); BILIRUBIN, TOTAL <0.1 ng/dL (0.2-1.0); BUN/CREATININE RATIO 28.57 (6.0-28.6); CALCIUM 8.7 mg/dL (8.5-10.1); CARBON DIOXIDE 30 mmol/L (21-32); CHLORIDE 104 mmol/L (98-107); CREATININE, SERUM 0.21 mg/dL (0.70-1.30); GLOMERULAR FILTRATION RATE,EST 187 mL/min (>60); POTASSIUM 4.3 mmol/L (3.5-5.1); PROTEIN, TOTAL 6.5 g/dL (6.4-8.2); UREA NITROGEN 6 mg/dL (7-18)
[2023-05-04 06:16] LABS: BANDS, MANUAL DIFF 1; LYMPHOCYTES, MANUAL DIFF 30; MONOCYTES, MANUAL DIFF 4; NEUTROPHILS, MANUAL DIFF 65
[2023-05-04 10:28] VITALS: BP 128/56
[2023-05-04] MEDS ORDERED: SULFAMETHOXAZO1 EAC1 PO (10:59)
[2023-05-04] MEDS ORDERED: CIPROFLOXACIN750 MG PO (11:03)
[2023-05-04] MEDS ORDERED: METRONIDAZOLE500 MG PO (11:08)
== END 2023-05-04 12:04 | disposition home or self-care (01) | DRG 872 ==
LOC: ED 10:35 → CCU 13:53 → MS 13:53
PROVIDERS: Emergency Medicine; ADMIT Family Medicine; ATTEND Family Medicine
DX: A41.9 Sepsis, unspecified organism (principal); L03.115 Cellulitis of right lower limb; G80.9 Cerebral palsy, unspecified; G40.909 Epilepsy, unspecified, not intractable, without status epilepticus; L98.499 Non-pressure chronic ulcer of skin of other sites with unspecified severity; Z99.3 Dependence on wheelchair; Z99.81 Dependence on supplemental oxygen; Z87.01 Personal history of pneumonia (recurrent); Z98.890 Other specified postprocedural states; Z98.2 Presence of cerebrospinal fluid drainage device; Z20.822 Contact with and (suspected) exposure to COVID-19; Z88.8 Allergy status to other drugs, medicaments and biological substances; Z79.899 Other long term (current) drug therapy; Z79.2 Long term (current) use of antibiotics; Z93.0 Tracheostomy status; Z86.14 Personal history of Methicillin resistant Staphylococcus aureus infection; Z86.19 Personal history of other infectious and parasitic diseases; Z93.1 Gastrostomy status
CPT/HCPCS: 36415; 72220; 80053; 83605; 85025; 87040; 87070; 87075; 87205; 87502; 94640; 94760; 94799; 96365; 96375; 99285-25; A9270; C9803; J0692; J0878; J7030; U0002

== ENCOUNTER 2023-05-28 08:50 | Day surgery (SDC) | payer OTHER ==
[~2023-05-28] VITALS: Ht 157.5 cm; Wt 56.8 kg
[~2023-05-28 08:50] MED LIST changes: +FLEET ENEMA133 ML PR; +METRONIDAZOLE500 MG PO; +SULFAMETHOXAZO1 EAC1 PO
[2023-05-28 09:17] VITALS: BP 141/98
[2023-05-28] MEDS ORDERED: MUCINEX600 MG PO (09:24)
[2023-05-28] MEDS ORDERED: CHILDREN'S160 MG/19 PO (12:21)
--- NOTE | 2023-05-28 12:22 | NUR ---
05/28/23 1222 Sheets,Ora 1206 PT ARRIVED TO PACU WITH DECREASED RESP RATE AND SHALLOW BREATHING NOTED. O2 SAT UPPER 90S. TRACH MASK IN PLACE AT 6L. PT NONAROUSABLE. 1220 PT OPENED HIS EYES AND RN TALKING TO PT, PT CLOSES EYES.
[2023-05-28 12:54] VITALS: BP 141/79
--- NOTE | 2023-05-31 11:30 | OR ---
[facility] [address], [place] [address] Signed DATE OF OPERATION: 05/28/2023 SURGEON: Harrison Fernandez MD PREOPERATIVE DIAGNOSES: 1. Severe disability related to cerebral palsy including multiple limb contractures requiring of tracheostomy and feeding tube. 2. Persistent sacral decubitus (3 cm). POSTOPERATIVE DIAGNOSES: 1. Severe disability related to cerebral palsy including multiple limb contractures requiring of tracheostomy and feeding tube. 2. Persistent sacral decubitus (3 cm). PROCEDURES: 1. Exam under anesthesia with thick excision and debridement of sacral decubitus, approximately 3 cm with debridement of skin, subcutaneous tissue, and granulation tissue. 2. Primary closure. ANESTHESIA: Local with monitored anesthesia care including Marcaine 4 mL of 0.25% with epinephrine. INDICATION: This 27-year-old white boy is the son of a [facility]. He was born with significant disabilities related to cerebral palsy. Currently has a tracheostomy and a feeding tube. He has an underlying seizure disorder and numerous other medical problems including contractures and so on. He has had a decubitus of the sacrum for quite some time for with local wound care has been employed quite intensively. The lesion is not small, but it seems not to be completely healing up. It measures approximately 3 cm in maximum length. This shows there is no evidence of surrounding cellulitis or erythema or drainage of purulence. Consideration has been made for debridement and attempted closure at this time. He does not require rotational or advancement flap for anything of that sort, but certainly does warrant an attempt at closure. The risk of bleeding, infection, failure of the closure, and so forth were reviewed in detail with his parents. Additionally, they know that for short-term avoidance of pressure on the closure will be necessary. FINDINGS: The decubitus was linear in its configuration and extended beneath the skin to a degree. Electronically Signed By: HARRISON FERNANDEZ MD 05/31/23 3153 PATIENT NAME: EKATERINA BARON ALL OPERATIVE REPORT DATE OF : [birth year] REPORT #: [id number] PHYSICIAN: HARRISON FERNANDEZ MD PCP: KARIN RODRÍGUEZ MD REPORT IS CONFIDENTIAL AND NOT TO BE RELEASED WITHOUT AUTHORIZATION [facility] [address], [place] [address] Signed The entire length of the excision site was approximately 3 cm. Debridement of granulation tissue was undertaken allowing for primary closure of the remaining skin defect. PROCEDURE IN DETAIL: The patient was brought to the operating room, placed in lateral decubitus position right side down and the buttock taped apart. Preoperative antibiotic of Ancef was given. He was given intravenous sedation with extreme care and caution as full cardiopulmonary monitoring. The sacral and perineal area were prepared with a Betadine based solution. 3 mL of 0.25% Marcaine with epinephrine was injected locally. Probing of the shallow decubitus with a banjo curette was undertaken for some debridement of exuberant granulation tissue in the depths of the wound. Elliptical incision was made with a 15 blade and excised more fully with electrocautery. Cautery was applied to the base of the wound as well. Debridement was undertaken with a banjo curette. Hemostasis was assured with electrocautery. Irrigation was undertaken. There was no evidence of infection or necrosis. The wound was then closed in a vertical direction with interrupted 0 tolerated the procedure well. Harrison Fernandez MD JM/MODL /[id number] cc: Dr. Karin Rodríguez Copies: ~ Electronically Signed By: HARRISON FERNANDEZ MD 05/31/23 1130 PATIENT NAME: EKATERINA BARON ALL OPERATIVE REPORT DATE OF : [birth year] REPORT #: [id number] PHYSICIAN: HARRISON FERNANDEZ MD PCP: KARIN RODRÍGUEZ MD REPORT IS CONFIDENTIAL AND NOT TO BE RELEASED WITHOUT AUTHORIZATION
== END 2023-05-28 13:00 | disposition home or self-care (01) ==
LOC: DS 08:50
PROVIDERS: ATTEND Surgery
PROC: 0JB70ZZ Excision of Back Subcutaneous Tissue and Fascia, Open Approach (ICD-10-PCS; principal; 2023-05-28 11:00)
DX: L89.159 Pressure ulcer of sacral region, unspecified stage (principal); G80.9 Cerebral palsy, unspecified; Z93.0 Tracheostomy status; Z98.2 Presence of cerebrospinal fluid drainage device; Z88.8 Allergy status to other drugs, medicaments and biological substances; Z79.899 Other long term (current) drug therapy
CPT/HCPCS: 00400; J0690; J1100; J1885; J2250; J2405; J2704; J2765; J3010; J7121

== ENCOUNTER 2024-01-27 19:05 | Inpatient (IN) | payer OTHER ==
[~2024-01-27] VITALS: Ht 157.5 cm; Wt 53.2 kg
[~2024-01-27 19:05] MED LIST changes: +BACTRIM DS TAB1 EACH PO; +CHILDREN'S160 MG/19 PO; +MUCINEX600 MG PO
--- OUTSIDE RECORDS SUMMARY | 2024-01-27 19:07 | XMS ---
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 E.D. VISIT COUNT (12 MO.) [address] [facility] TOTAL 6 NOTE: Visits indicate total known visits. ED/UCC VISIT TRACKING (12 MO.) 01/27/2024 19:06 [facility] OR TYPE: Emergency COMPLAINT: - VOMITING 01/20/2024 15:00 [facility] [place] TYPE: Emergency COMPLAINT: - CELLULITIS DIAGNOSES: - Allergy status to other drugs, medicaments and biological substances - Cellulitis of right lower limb - Fever, unspecified - Other air conditioning equipment mechanic (current) drug therapy 11/21/2023 19:38 [facility] [place] TYPE: Emergency COMPLAINT: - ELEVATED HEART RATE DIAGNOSES: - Allergy status to other drugs, medicaments and biological substances - Bed confinement status - Cerebral palsy, unspecified - Cough, unspecified - Dependence on supplemental oxygen - Gastrostomy status - plasterer stucco (current) use of inhaled steroids - Other nursing home (current) drug therapy - Severe intellectual disabilities - Tachycardia, unspecified - Tracheostomy status - Vomiting, unspecified 08/19/2023 05:47 [facility] [place] TYPE: Emergency COMPLAINT: - FEVER DIAGNOSES: - Allergy status to other drugs, medicaments and biological substances - Cellulitis of right lower limb - Cerebral palsy, unspecified - Encounter for screening for COVID-19 - Fever, unspecified - Other air conditioning equipment mechanic (current) drug therapy - Sepsis, unspecified organism 05/01/2023 10:36 [facility] TYPE: Emergency COMPLAINT: - R LEG HOT/RED 03/27/2023 22:33 [facility] TYPE: Emergency COMPLAINT: - LOW STATS DIAGNOSES: - Allergy status to other drugs, medicaments and biological substances - Atelectasis - Contact with and (suspected) exposure to COVID-19 - Other nursing home (current) drug therapy - Pneumonitis due to inhalation of food and vomit - Shortness of breath INPATIENT VISIT TRACKING (12 MO.) 05/01/2023 13:53 [facility] [place] TYPE: Medical Surgical COMPLAINT: - CELLULITIS, SEPSIS DIAGNOSES: - Allergy status to other drugs, medicaments and biological substances - Allergy status to other drugs, medicaments and biological substances - Cellulitis of right lower limb - Cellulitis of right lower limb - Cerebral palsy, unspecified - Cerebral palsy, unspecified - Contact with and (suspected) exposure to COVID-19 - Contact with and (suspected) exposure to COVID-19 - Dependence on supplemental oxygen - Dependence on supplemental oxygen - Dependence on wheelchair - Dependence on wheelchair - Epilepsy, unspecified, not intractable, without status epilepticus - Epilepsy, unspecified, not intractable, without status epilepticus - Fever, unspecified - Gastrostomy status - Gastrostomy status - plasterer stucco (current) use of antibiotics - plasterer stucco (current) use of antibiotics - Non-pressure chronic ulcer of skin of other sites with unspecified severity - Non-pressure chronic ulcer of skin of other sites with unspecified severity - Other air conditioning equipment mechanic (current) drug therapy - Other air conditioning equipment mechanic (current) drug therapy - Other specified postprocedural states - Other specified postprocedural states - Personal history of Methicillin resistant Staphylococcus aureus infection - Personal history of Methicillin resistant Staphylococcus aureus infection - Personal history of other infectious and parasitic diseases - Personal history of other infectious and parasitic diseases - Personal history of pneumonia (recurrent) - Personal history of pneumonia (recurrent) - Presence of cerebrospinal fluid drainage device - Presence of cerebrospinal fluid drainage device - Sepsis, unspecified organism - Sepsis, unspecified organism - Tracheostomy status - Tracheostomy status [email or web address]
[2024-01-27] MEDS ORDERED: ondansetron HCL 4 MG/2 ML VIAL IV ONE (19:30)
[2024-01-27] MEDS ORDERED: LACTATED RINGER'S 1,000 ML IV ONE (19:30)
[2024-01-27] MEDS ORDERED: ALBUTEROL/IPRATROPIUM 3 ML NEB INH ONE (19:45)
[2024-01-27] MEDS ORDERED: LIDOCAINE 2% VISCOUS 6 ML SYR TOP ONE (19:45)
[2024-01-27 20:18] LABS: BILIRUBIN, URINE NEGATIVE (negative); BLOOD/HGB, URINE NEGATIVE (Negative); KETONE, URINE NEGATIVE (Negative); LEUK ESTERASE, URINE NEGATIVE (negative); NITRITE, URINE NEGATIVE (negative)
[2024-01-27 21:07] LABS: BASOPHILS 0.3 % (0-2); EOSINOPHILS 0.4 % (0-6); HEMATOCRIT 42.5 % (35.0-50.0); HEMOGLOBIN 13.9 g/dL (12.0-18.0); LYMPHOCYTES 12.1 % (24-44); MCH 30.7 (27-36); MCHC 32.6 g/dl (30-36); MCV 94.2 fl (81-99); MONOCYTES 6.3 % (0-12); NEUTROPHILS 80.9 % (39-80); PLATELET COUNT 201 K/uL (140-440); RBC 4.51 M/ul (4.3-5.7); RDW 13.4 (10.5-15.0)
[2024-01-27 21:30] LABS: ALBUMIN 2.9 g/dL (3.4-5.0); ALBUMIN/GLOBULIN RATIO 0.53 (1.1-2.4); ANION GAP 6.7 (7-21); BUN/CREATININE RATIO 25.8 (6.0-28.6); CALCIUM 9.3 mg/dL (8.5-10.1); CREATININE, SERUM 0.31 mg/dL (0.70-1.30); POTASSIUM 4.7 mmol/L (3.5-5.1); PROTEIN, TOTAL 8.4 g/dL (6.4-8.2)
[2024-01-27] MEDS ORDERED: droPERidol 5 MG/2 ML VIAL IV ONE (21:30)
[2024-01-27 21:38] LABS: LACTIC ACID, BLOOD 0.8 mmol/L (0.4-2.0)
[2024-01-27] MEDS ORDERED: PIPERACILLIN/TAZOBACTAM 3.375 GM in DEXTROSE 5% 100 ML IV ONE (21:45)
[2024-01-27 21:47] LABS: BILIRUBIN, TOTAL 0.1 ng/dL (0.2-1.0)
[2024-01-27 21:53] LABS: INFLUENZA B NAA NEGATIVE (NEGATIVE); RESPIRATORY SYNCYTIAL VIR NAA NEGATIVE (NEGATIVE)
[2024-01-27] MEDS ORDERED: DEXTROSE 5% 100 ML IV ONE (22:00)
[2024-01-27] MEDS ORDERED: PROCHLORPERAZINE EDISYLATE 10 MG/2 ML VIAL IV PRN (22:30)
[2024-01-27] MEDS ORDERED: ondansetron HCL 4 MG/2 ML VIAL IV PRN (22:30)
[2024-01-27] MEDS ORDERED: DAPTOmycin 500 MG/10 ML VIAL IV ONE (22:30)
[2024-01-27] MEDS ORDERED: LACTATED RINGER'S 1,000 ML IV SCH (22:30)
[2024-01-27] MEDS ORDERED: MORPHINE SULFATE 4 MG/ML VIAL IV PRN (22:30)
--- NOTE | 2024-01-27 23:55 | NUR ---
PT ARRIVED TO CCU ROOM 126 AT 2355 WITH PARENTS, CAREGIVER AND ED RN, ISSAC, TRANSPORT. PT TRANSPORTED VIA STRETCHER AND TRANSFERRED TO BED WITHOUT INCIDENT.
[2024-01-28 00:14] VITALS: BP 121/60
--- NOTE | 2024-01-28 01:07 | NUR ---
ADMISSION ASSESSMENT COMPLETE. SEE [facility] FOR DETAILS. PT RESTING IN BED, CAREGIVER AT BEDSIDE. BED IN LOW, LOCKED POSITION. VSS AND NAD NOTED VIA DIRECT OBS, CONTINUOUS MONITOR. HILL PATENT AND DRAINING.
--- NOTE | 2024-01-28 01:23 | NUR ---
PT RESTING IN BED WITH EYES OPEN. TELEVISION ON. INTERMEDIATE PROJECT MANAGER IN RECLINER AT BEDSIDE. VSS AND NAD NOTED VIA CONTINUOUS MONITOR AND DIRECT OBS. BED IN LOW, LOCKED POSITION. HILL PATENT AND DRAINING.
--- NOTE | 2024-01-28 02:10 | NUR ---
PT RESTING IN BED WATCHING TELEVISION. VSS AND NAD NOTED VIA DIRECT OBS, CONTINUOUS MONITOR. BED IN LOW, LOCKED POSITION.
[2024-01-28 04:12] VITALS: BP 117/66
--- NOTE | 2024-01-28 04:21 | NUR ---
SHIFT ASSESSMENT COMPLETE. [facility]. PT RESTING IN BED. EASILY AWAKENED TO TOUCH. CAREGIVER AT BEDSIDE. PATENT PIV WITH MAINTENANCE FLUIDS INFUSING PER EMAR. 2L TO TRACH MASK. BED IN LOW, LOCKED POSITION. VSS AND NAD NOTED VIA DIRECT OBS, CONTINUOUS MONITOR.
[2024-01-28 05:35] LABS: BASOPHILS 0.2 % (0-2); EOSINOPHILS 0.2 % (0-6); HEMATOCRIT 35.8 % (35.0-50.0); HEMOGLOBIN 11.7 g/dL (12.0-18.0); LYMPHOCYTES 12.4 % (24-44); MCH 30.7 (27-36); MCHC 32.7 g/dl (30-36); MCV 93.8 fl (81-99); MONOCYTES 4.9 % (0-12); NEUTROPHILS 82.3 % (39-80); PLATELET COUNT 209 K/uL (140-440); RBC 3.82 M/ul (4.3-5.7); RDW 13.2 (10.5-15.0)
[2024-01-28 05:48] LABS: ALBUMIN 2.4 g/dL (3.4-5.0); ALBUMIN/GLOBULIN RATIO 0.51 (1.1-2.4); ANION GAP 6.7 (7-21); CALCIUM 8.7 mg/dL (8.5-10.1); CREATININE, SERUM 0.25 mg/dL (0.70-1.30); MAGNESIUM 1.6 mg/dL (1.8-2.4); POTASSIUM 4.7 mmol/L (3.5-5.1); PROTEIN, TOTAL 7.1 g/dL (6.4-8.2)
[2024-01-28] MEDS ORDERED: PIPERACILLIN/TAZOBACTAM 3.375 GM VIAL ONE (05:58)
[2024-01-28] MEDS ORDERED: PIPERACILLIN/TAZOBACTAM 3.375 GM in DEXTROSE 5% 100 ML IV SCH ×2 (06:00→14:00)
[2024-01-28 06:13] LABS: BILIRUBIN, TOTAL 0.1 ng/dL (0.2-1.0)
--- NOTE | 2024-01-28 06:45 | NUR ---
PT RESTING IN BED WITH CLERICAL PRODUCTION WORKER AT BEDSIDE. CLERICAL PRODUCTION WORKER REQUESTS PROVIDED. NO ADDITION NEEDS VOCALIZED. PT VSS AND NAD NOTED VIA DIRECT OBS AND CONTINUOUS MONITOR. PT ABX AND MAINTENANCE FLUIDS INFUSING INTTO PATENT PIV. G-TUBE DRAINAGE FREE.
--- NOTE | 2024-01-28 07:25 | NUR ---
report from juli gunter, pt resting with family in room, call light in reach.
--- NOTE | 2024-01-28 07:58 | NUR ---
REPORT GIVEN AND CARE ENDORSED TO RALPH SWIFT. VSS VIA CONTINUOUS MONITOR. FAMILY AT BEDSIDE.
[2024-01-28 08:00] VITALS: BP 115/54
[2024-01-28] MEDS ORDERED: MAGNESIUM SULFATE 2 GM/50 ML BAG IV ONE (08:30)
--- NOTE | 2024-01-28 08:55 | NUR ---
in room with parents and pt for assessment. pt on right side resting, left wrist iv wnl. call light in reach.
--- NOTE | 2024-01-28 09:12 | NUR ---
in room with dr waller and parents for plan of care. and home meds
--- NOTE | 2024-01-28 09:20 | NUR ---
pt turned, wound on coycyx shown to dr by parent - new drsg provided -mom reports site improved open dime size -
[2024-01-28] MEDS ORDERED: LACTATED RINGER'S 1,000 ML IV SCH (09:30)
[2024-01-28] MEDS ORDERED: ondansetron HCL 4 MG/2 ML VIAL IV PRN (09:30)
--- NOTE | 2024-01-28 09:54 | NUR ---
VISITED DURING SPIRITUAL CARE ROUNDS. FAMILY AND CAREGIVER AT BEDSIDE. LISTENED EMPATHETICALLY FAMILY TALKED OF PT HEALTH AND HOPES FOR POSITIVE OUTCOME; EXHIBITED STRONG CELESTINE AND RELATIONAL RESOURCES. PROVIDED SUPPORTIVE PRESENCE, HOSPITALITY, PRAYER. FAMILY EXPRESSED GRATITUDE, HOPE, CELESTINE.
--- NOTE | 2024-01-28 10:13 | NUR ---
PATIENT IN BED. HISTORY OF CP, NONVERBAL. PARENTS/CAREGIVERS IN ROOM. STATE PATIENT LIVES WITH THEM. DEMOGRAPHICS VERIFIED. DME INCLUDE, OXYGEN FROM [place], [place] PUMP, AIRVO, CEILING LIFT, WHEELCHAIR, WHEELCHAIR VAN, BACLOFEN PUMP. PARENTS STATE THEY HAVE NO NEEDS CURRENTLY. THEY ARE SWITCHING ROOMS AROUND IN THEIR HOUSE, BUT HAVE NOT FOUND THEY HAVE ANY NEEDS. NO FINANCIAL CONCERNS EITHER. STATE THEY WILL NOTIFY STAFF IF NEEDS ARISE.
[2024-01-28] MEDS ORDERED: ALBUTEROL2.5 MG/3 M INH (11:21)
--- NOTE | 2024-01-28 11:45 | NUR ---
pt to xray via bed with this rn and family - pt on oxygen. 4 person max assist slide trsf to exam table for scan. bed linen changed and waffle mattress placed. scan completed and pt moved back to fresh bed, back to room 126 ccu at 12:15 afternoon. and vitals taken, 3l oxygen trach 96% - g tube vented for some air and sm 5 ml of green bile noted and replaced. call light and family in reach.
[2024-01-28 12:00] VITALS: BP 125/66
[2024-01-28] MEDS ORDERED: PHARMACY RENAL DOSE ADJUSTMENT 1 DOSE MISC PO SCH (12:00)
[2024-01-28] MEDS ORDERED: LEVALBUTER0.63 MG/3 INH (12:31)
[2024-01-28] MEDS ORDERED: BACLOFEN10 MG PO (12:31)
[2024-01-28] MEDS ORDERED: EMERGEN-C 1,01000 MG PO (12:32)
[2024-01-28] MEDS ORDERED: LIORESAL I10 MG/5 ML XX (12:35)
--- NOTE | 2024-01-28 12:35 | NUR ---
MED REC COMPLETE
--- NOTE | 2024-01-28 13:00 | NUR ---
BEDBATH PROVIDED BY THIS PARAFFINER AND PATIENTS MOTHER. LINEN AND GOWN CHANGED. PATIENT TOLERATED ACTIVITY WELL. CALL LIGHT IN EASY REACH FOR CAREGIVERS, NO OTHER NEEDS AT THIS TIME
[2024-01-28] MEDS ORDERED: LANSOPRAZOLE 30 MG TABDIS PT SCH (13:55)
[2024-01-28] MEDS ORDERED: SOD PHOSPHATE/SOD BIPHOSPHATE 132 ML BTL PR SCH (14:00)
--- NOTE | 2024-01-28 14:31 | NUR ---
CONSULT RECEIVED FOR WOUND TO COCCYX. PATIENT HAS CEREBRAL PALSY AND CANNOT EAT BY MOUTH. HE IS FED ENTERALLY VIA A G-TUBE. HIS PARENTS USUALLY BRING IN HIS FORMULA AND FEED HIM BUT PATIENT IS NPO RIGHT NOW. I DON'T ANTICIPATE THE FAMILY WILL NEED ANY NUTRITION INTERVENTION. THIS RD WILL REMAIN AVAILABLE IF NEEDED.
--- NOTE | 2024-01-28 14:54 | NUR ---
amb pt from to br to void 200 ml yellow urine, amb back to , call light in reach, denies need, sob noted with exertion - pt reports sedentary lifestyle and normal sob.
[2024-01-28] MEDS ORDERED: PATIENT'S OWN MEDICATION(S) ORDER PO SCH ×2 (15:00→21:00)
[2024-01-28] MEDS ORDERED: BETHANECHOL CHLORIDE 5 MG PT SCH (15:00)
[2024-01-28] MEDS ORDERED: VALPROIC ACID 250 MG/5 ML PT SCH ×2 (15:00→21:00)
[2024-01-28] MEDS ORDERED: GLYCOPYRROLATE 1 MG TABLET PT SCH (15:00)
[2024-01-28] MEDS ORDERED: cloBAZam 20 MG TABLET PT SCH (15:00)
[2024-01-28] MEDS ORDERED: BETHANECHOL CHLORIDE 5 MG PO SCH (15:00)
[2024-01-28] MEDS ORDERED: cloBAZam 20 MG TABLET PO SCH (15:00)
--- NOTE | 2024-01-28 15:15 | NUR ---
pt mother read ct scan on echart, would like to talk to sridhar. this rn talked with sridhar and let dr know that parent would like a rafaela consult of scans for poss gall stones. mom aware of yasmin to consult rafaela. pt king to gravity and no nausea.
--- NOTE | 2024-01-28 15:26 | NUR ---
UR CLINICAL REVIEW: [facility] [place] 01/28/24 @ 0933 YES, ORDER MEETS STATUS AUTH PENDING- WILL SEND CLINICALS IF REQUESTED PLAN TO DC HOME WITH FAMILY WHEN STABLE 01/31/24
[2024-01-28 16:00] VITALS: BP 136/79
--- NOTE | 2024-01-28 16:21 | NUR ---
call to dr waller - he has a call in to rafaela - he is in [place]. family request tylenol for pain/discomfort - see new orders.
[2024-01-28] MEDS ORDERED: ACETAMINOPHEN 325 MG TAB PO PRN (16:30)
--- NOTE | 2024-01-28 16:46 | NUR ---
dr waller in room - po tylenol see emar given in g tube for discomfort - pt family thinks he looks uncomfortable/tense. family aware of consult.
[2024-01-28 18:40] LABS: AMYLASE 17 U/L (25-115)
--- NOTE | 2024-01-28 18:42 | NUR ---
spoke with dr waller who consulted dr russo see new orders for us/ lipase, and amylase. pt given fleets enema from this rn - no stool felt in rectum before procedure - pt then to bsc max assist lift by dad - per his usual routine at home. pt sitting with support upright - +flatus noted and continues to sit upright with support. rn suctioned pt trach stoma for sm amt of secreations while up. continues oxygen.
--- NOTE | 2024-01-28 19:30 | NUR ---
SHIFT REPORT RECEIVED. US TECH IN ROOM FOR ORDERED IMAGING. FAMILY AT BEDSIDE. PATIENT VS STABLE. DENIED ANY NEEDS. CALL LIGHT IN REACH.
[2024-01-28 20:00] VITALS: BP 143/89
[2024-01-28] MEDS ORDERED: levalbuterol HCL 1.25 MG/0.5 ML VIAL INH SCH (21:00)
[2024-01-28] MEDS ORDERED: DAPTOmycin 500 MG/10 ML VIAL IV SCH (21:00)
[2024-01-28] MEDS ORDERED: TRAZODONE HCL 50 MG TAB PT SCH (21:00)
--- NOTE | 2024-01-28 21:19 | NUR ---
SCHEDULED PATIENT MEDS PROVIDED. VERIFIED MEDS WITH PATIENT'S MOTHER AT BEDSIDE. PT MEDS GIVEN PER ORDER WITH 20 MLS WATER FLUSHED. IV MEDS PER ORDER, SITE WNL. IVF PER ORDER. PATIENT VS STABLE. LUNG SOUNDS ARE CLEAR, DIM IN THE BASES. ABD IS SOFT, BOWEL SOUNDS ACTIVE. G-TUBE WNL. HILL IN PLACE, ADEQUATE URINE OUTPUT. TOLERATING HOME O2. PATIENT APPEARS COMFORTABLE, FAMILY DENIED ANY CURRENT CONCERNS.
[2024-01-29] VITALS: BP 130/63
--- NOTE | 2024-01-29 00:29 | NUR ---
PATIENT RESTING IN BED WITH EYES CLOSED. APPEARS COMFORTABLE. VS STABLE. TOLERATING HOME O2 THERPAY. HILL DRAINING FREELY. IV SITE WNL, IVF PER ORDER. FAMILY AT BEDSIDE.
--- NOTE | 2024-01-29 03:35 | NUR ---
PATIENT APPEARS COMFORTABLE IN BED. RESTING WITH EYES CLOSED. OPENS EYES TO WATCH STAFF WHILE IN ROOM. VS STABLE. HILL DRAINING FREELY. IV SITE WNL, IVF PER ORDER. FAMILY AT BEDSIDE.
[2024-01-29 04:00] VITALS: BP 122/66
[2024-01-29 05:38] LABS: BASOPHILS 0.4 % (0-2); EOSINOPHILS 0.9 % (0-6); HEMOGLOBIN 11.2 g/dL (12.0-18.0); LYMPHOCYTES 25.1 % (24-44); MCH 30.2 (27-36); MCHC 32.1 g/dl (30-36); MCV 94.2 fl (81-99); NEUTROPHILS 67.6 % (39-80); PLATELET COUNT 207 K/uL (140-440); RBC 3.71 M/ul (4.3-5.7); RDW 13.4 (10.5-15.0)
[2024-01-29 05:50] LABS: ALBUMIN 2.3 g/dL (3.4-5.0); ALBUMIN/GLOBULIN RATIO 0.5 (1.1-2.4); ANION GAP 6.1 (7-21); BILIRUBIN, TOTAL 0.1 ng/dL (0.2-1.0); CALCIUM 8.7 mg/dL (8.5-10.1); CREATININE, SERUM 0.25 mg/dL (0.70-1.30); MAGNESIUM 1.7 mg/dL (1.8-2.4); PHOSPHORUS, INORGANIC 3.3 mg/dL (2.5-4.9); POTASSIUM 4.1 mmol/L (3.5-5.1); PROTEIN, TOTAL 6.9 g/dL (6.4-8.2)
--- NOTE | 2024-01-29 05:57 | NUR ---
RT CALLED FOR SUCTIONING, PATIENT'S FATHER UNABLE TO SUCESSFULLY SUCTION THICK SECREATIONS. PATIENT TOLERATING WELL. TITRATED TO 4L TRACH MASK DURING THIS TIME. SCHEDULED ABX STARTED PER ORDER, IV SITE WNL. HILL CARE DONE AND EMPTIED. OUTPUT QS. PATIENT ATTENDS IS CLEAN, NO BM.
--- NOTE | 2024-01-29 07:30 | NUR ---
REPORT RECEIVED FROM WILMER ROSAS
--- NOTE | 2024-01-29 08:11 | NUR ---
IN TO SEE PT AND DISCUSS PLAN FOR THE DAY WITH MOM, INCLUDING CONSULT WITH DR FERNANDEZ. MOM STATES PT HAS HAD MORE SEIZURES YESTERDAY AND LAST NIGHT, BELIEVES IT MAY POSSIBLE BE DUE TO GETTING SEIZURE MEDS IN LATER THAN NORMAL. PT IS AWAKE AND ALERT. MOM BELIEVES PT IS COMFORTABLE AT THIS TIME AND HAS NO NEEDS.
[2024-01-29 08:20] VITALS: BP 138/83
--- NOTE | 2024-01-29 08:47 | NUR ---
PATIENT RESTING IN BED AT THIS TIME. AM VITALS CHARTED AND HILL HAS BEEN EMPTIED. INSTRUMENT TECHNICIAN APPRENTICE TIDIED ROOM, MOM AND CAREGIVER AT BEDSIDE. CALL LIGHT WITHIN REACH, NO FURTHER NEEDS AT THIS TIME.
[2024-01-29] MEDS ORDERED: MAGNESIUM SULFATE 2 GM/50 ML BAG IV ONE (09:00)
[2024-01-29] MEDS ORDERED: ENOXAPARIN SODIUM 40 MG/0.4 ML SYR SUB-Q SCH (09:00)
--- NOTE | 2024-01-29 09:10 | NUR ---
IN TO ASSESSMENT AND AM MEDS. PT HAS BEEN ON RIGHT SIDE, SWITCHED OVER TO LEFT SIDE. DRESSING ON COCCYXIS ALLEVYN, CDI. IVF INFUSING INTO LEFT WRIST, NO S/SX INFLILTRATION. PT IS ON TRACH MASK/ARAVAN. LUNGS HAVE SOME COARSE SOUNDS/RHONCHI THROUGHOUT. MOM IS AT BEDSIDE, NO QUESTIONS AT THSI TIME.
--- NOTE | 2024-01-29 10:32 | NUR ---
PATIENT RESTING IN BED AT THIS TIME. FAMILY AT BEDSIDE. CALL LIGHT WITHIN REACH, NO FURTHER NEEDS AT THIS TIME.
--- NOTE | 2024-01-29 10:37 | NUR ---
DR ROLON IN TO SEE PT
[2024-01-29] MEDS ORDERED: SOD PHOSPHATE/SOD BIPHOSPHATE 132 ML BTL PR ONE (11:00)
[2024-01-29] MEDS ORDERED: POLYETHYLENE GLYCOL 3350 1 PACKET PO ONE (11:00)
--- NOTE | 2024-01-29 12:08 | NUR ---
PARENTS HAVE GOTTEN PT UP TO CHAIR, GIVEN MIRALAX AND FLEETS ENEMA PER PARENTS REQUEST PT HAS STILL NOT HAD HIS REGULAR BOWEL MOVEMENT.
--- NOTE | 2024-01-29 14:07 | NUR ---
CONNECTED WITH FATHER IN HALLWAY. PROVIDED SUPPORTIVE PRESENCE, PRAYER. FATHER EXPRESSED GRATITUDE.
--- NOTE | 2024-01-29 15:17 | NUR ---
PARENTS AND CAREGIVER GIVEN D/C INSTRUCTIONS, NO QUESTIONS AT THIS TIME. IV DC'D WITH TIP INTACT, PRESSURE DRESSING APPLIED AND MOM AWARE OF NEED TO TAKE IT OFF IN ABOUT 10 MINUTES. VSS, PT AFEBRILE. DC/D OUT TO HOME IN HIS OWN WHEELCHAIR.
[2024-02-01] MEDS ORDERED: POLYETHYLENE GLYCOL 3350 1 PACKET PT SCH (14:00)
== END 2024-01-29 15:12 | disposition home or self-care (01) | DRG 178 ==
LOC: ED 19:05 → CCU 19:07
PROVIDERS: Family Medicine; ADMIT Family Medicine; ATTEND Family Medicine
DX: J69.0 Pneumonitis due to inhalation of food and vomit (principal); L03.115 Cellulitis of right lower limb; K59.00 Constipation, unspecified; K80.20 Calculus of gallbladder without cholecystitis without obstruction; G80.9 Cerebral palsy, unspecified; G40.909 Epilepsy, unspecified, not intractable, without status epilepticus; E83.42 Hypomagnesemia; K82.8 Other specified diseases of gallbladder; L98.429 Non-pressure chronic ulcer of back with unspecified severity; Z88.8 Allergy status to other drugs, medicaments and biological substances; Z99.81 Dependence on supplemental oxygen
CPT/HCPCS: 36415; 71045; 73701; 74177; 76705; 80053; 81003; 82150; 82803; 83605; 83690; 83735; 83880; 84100; 85025; 87040; 87502; 94640; 94799; A9270; J0878; J1650; J1790; J2405; J2543; J3475; J7121; U0002

== ENCOUNTER 2024-03-05 14:20 | Emergency (ER) | payer OTHER ==
[~2024-03-05] VITALS: Ht 157.5 cm; Wt 50.1 kg
[~2024-03-05 14:20] MED LIST changes: +BACLOFEN10 MG PO; +EMERGEN-C 1,01000 MG PO; +LEVALBUTER0.63 MG/3 INH; +LIORESAL I10 MG/5 ML XX
[2024-03-05] MEDS ORDERED: DAPTOmycin 500 MG/10 ML VIAL IV ONE (14:45)
[2024-03-05] MEDS ORDERED: SODIUM CHLORIDE 0.9% 1,000 ML IV ONE (14:45)
[2024-03-05 16:12] LABS: BASOPHILS 0.2 % (0-2); EOSINOPHILS 0.3 % (0-6); HEMATOCRIT 38.7 % (35.0-50.0); HEMOGLOBIN 12.5 g/dL (12.0-18.0); LYMPHOCYTES 14.3 % (24-44); MCH 30.1 (27-36); MCHC 32.3 g/dl (30-36); MONOCYTES 7.2 % (0-12); PLATELET COUNT 190 K/uL (140-440); RBC 4.16 M/ul (4.3-5.7); RDW 13.6 (10.5-15.0)
[2024-03-05 16:23] LABS: INR 1.01 (0.80-1.30); PROTIME 12.9 Sec (11.2-14.2)
[2024-03-05 16:25] LABS: PARTIAL THROMBOPLASTIN TIME 41.4 Sec (22.9-41.3)
[2024-03-05 16:28] LABS: ALBUMIN/GLOBULIN RATIO 0.53 (1.1-2.4); BILIRUBIN, TOTAL 0.2 ng/dL (0.2-1.0); BUN/CREATININE RATIO 36.11 (6.0-28.6); CALCIUM 9.2 mg/dL (8.5-10.1); CREATININE, SERUM 0.36 mg/dL (0.70-1.30); PROTEIN, TOTAL 8.7 g/dL (6.4-8.2)
[2024-03-05 16:33] LABS: LACTIC ACID, BLOOD 0.6 mmol/L (0.4-2.0)
[2024-03-05 16:44] LABS: BILIRUBIN, URINE NEGATIVE (negative); BLOOD/HGB, URINE NEGATIVE (Negative); KETONE, URINE NEGATIVE (Negative); LEUK ESTERASE, URINE NEGATIVE (negative); NITRITE, URINE NEGATIVE (negative)
[2024-03-05] MEDS ORDERED: PANTOPRAZOLE SODIUM 40 MG/10 ML VIAL IV SCH (18:55)
[2024-03-05] MEDS ORDERED: ondansetron HCL 4 MG/2 ML VIAL IV PRN (19:00)
[2024-03-05] MEDS ORDERED: ACETAMINOPHEN 500 MG TAB PO PRN (19:00)
[2024-03-05] MEDS ORDERED: PROCHLORPERAZINE EDISYLATE 10 MG/2 ML VIAL IV PRN (19:00)
[2024-03-05] MEDS ORDERED: guaiFENesin 600 MG TABCR PO PRN (19:15)
[2024-03-05] MEDS ORDERED: BACLOFEN 10 MG TAB PO PRN (19:15)
[2024-03-05] MEDS ORDERED: POLYETHYLENE GLYCOL 3350 1 PACKET PT SCH (19:15)
[2024-03-05] MEDS ORDERED: SOD PHOSPHATE/SOD BIPHOSPHATE 132 ML BTL PR SCH (19:15)
[2024-03-05] MEDS ORDERED: ALBUTEROL SULFATE 0.083% 3 ML VIAL INH PRN (19:15)
[2024-03-05 19:45] VITALS: BP 105/58
[2024-03-05] MEDS ORDERED: TRAZODONE HCL 50 MG TAB PO SCH (21:00)
[2024-03-05] MEDS ORDERED: VALPROIC ACID 250 MG CAP PO SCH (21:00)
[2024-03-05] MEDS ORDERED: BETHANECHOL CHLORIDE 5 MG PO SCH (21:00)
[2024-03-05] MEDS ORDERED: NON-FORMULARY MEDICATION ORDER GT SCH ×2 (21:00)
[2024-03-06] MEDS ORDERED: NON-FORMULARY MEDICATION ORDER GT SCH (09:00)
[2024-03-06] MEDS ORDERED: NON-FORMULARY MEDICATION ORDER OU SCH (09:00)
[2024-03-06] MEDS ORDERED: ENOXAPARIN SODIUM 40 MG/0.4 ML SYR SUB-Q SCH (09:00)
[2024-03-06] MEDS ORDERED: PHARMACY RENAL DOSE ADJUSTMENT 1 DOSE MISC PO SCH (12:00)
== END 2024-03-05 19:45 | disposition home or self-care (01) ==
LOC: ED 14:20 → MS 14:21 → ED 14:21
PROVIDERS: Family Medicine
DX: L03.115 Cellulitis of right lower limb (principal); L03.317 Cellulitis of buttock; Z88.8 Allergy status to other drugs, medicaments and biological substances; Z79.899 Other long term (current) drug therapy
CPT/HCPCS: 36415; 71045; 72220; 73552; 80053; 81003; 83605; 85025; 85610; 85730; 86140; J0878; J7030

== ENCOUNTER 2024-03-10 20:45 | Inpatient (IN) | payer OTHER ==
[~2024-03-10] VITALS: Ht 157.5 cm; Wt 50.0 kg
--- NOTE | ~2024-03-10 | OR ---
[facility] [address], [place] [address] Draft DATE OF OPERATION: 03/12/2024 SURGEON: Harrison Fernandez MD PREOPERATIVE DIAGNOSES: 1. Persistent significant hematochezia. 2. Multiple disabilities with profound cerebral palsy; tracheostomy feeding tube . POSTOPERATIVE DIAGNOSIS: Bleeding low rectal inflammatory polyp. PROCEDURES: Colonoscopy beyond splenic flexure with control of hemorrhage; snare polypectomy and application of hemoclips. ANESTHESIA: Intravenous sedation, propofol infusion; Harrison Langley CRNA. INDICATION: This 28-year-old white young man is a patient of Dr. Rodríguez and currently Dr. Tovar, hospitalist. He was admitted on 03/10/2024 with persistent significant hematochezia. He showed no evidence of hypotension, but his bleeding has persisted. Anorectal examination I performed yesterday showed no sign of fissure or obvious hemorrhoid. He has undergone a bowel prep and now to undergo colonoscopy to better characterize the problem. 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 His parents understand and agree to the risk of the procedure of colonoscopy, which include, but are not limited to bleeding, infection, perforation, and of course failure to diagnose the problem and understanding this they wished to proceed. FINDINGS: Some bright blood was dripping from the anorectal even at the outset of the procedure. There was blood within the rectum and sigmoid and to some degree the left colon. The procedure was rather prolonged. On the basis of this; a MiraLAX bowel prep had been administered. Colonoscopy was taken beyond the splenic flexure and the offending lesion PATIENT NAME: EKATERINA BARON ALL OPERATIVE REPORT DATE OF : [birth year] REPORT #: [id number] PHYSICIAN: HARRISON FERNANDEZ MD PCP: GEETHA RODRÍGUEZ MD REPORT IS CONFIDENTIAL AND NOT TO BE RELEASED WITHOUT AUTHORIZATION [facility] [address], [place] [address] Draft ultimately was found to be a bleeding low rectal fusiform polyp, which was excised and the base secured with hemoclips. There were no other findings. Of note, specifically no colitis, arteriovenous malformations, diverticula, or other issue. PROCEDURE IN DETAIL: The patient was brought to the endoscopy suite, placed in lateral decubitus position on his usual intensive care unit bed. He was given intravenous sedation with propofol infusional technique. Examination of the anorectum showed blood that was fresh dripping from the anal canal. Digital examination revealed no palpable abnormality. Olympus video colonoscope was passed in the rectum where some blood was noted. Irrigation was undertaken with a considerable amount of time and effort. Scope manipulated throughout the sigmoid and left colon irrigating as able ultimately identifying colon beyond the splenic flexure, most likely the transverse colon that had essentially no bleeding, verifying that this most likely was a distal bleeding source as clinically suspected. Irrigation was undertaken as the scope was withdrawn and careful examination throughout showed no sign of polyps, diverticular formation, colitis, or arteriovenous malformations. As the scope was withdrawn more distally the blood became more obvious and irrigation more intensively applied. Ultimately in the very low rectum was a tubular polyp that was inflamed and obviously dripping blood. A plan for hot snare polypectomy was outlined. The lesion was soft enough that simply securing the snare resulted in its transection. Specimen was obtained and passed for Pathology. The base of the polyp which surprisingly had no significant bleeding was then secured more fully with hemoclips. Irrigation was undertaken more fully and retroflexed view undertaken confirming the lesion to be in the low rectum. I do not believe this was a hemorrhoid, but rather a low rectal polyp. Hemostasis was assured and the scope was removed. The patient was taken back to intensive care unit for further management. He tolerated the procedure well. CONCLUDING DIAGNOSIS: Hematochezia related to low rectal polyp with persistent bleeding; most likely inflammatory polyp. Hemostasis assured with excision and application of hemoclips. MD ELENO Hutchins/RADHA /[id number] PATIENT NAME: EKATERINA BARON ALL OPERATIVE REPORT DATE OF : [birth year] REPORT #: [id number] PHYSICIAN: HARRISON FERNANDEZ MD PCP: GEETHA RODRÍGUEZ MD REPORT IS CONFIDENTIAL AND NOT TO BE RELEASED WITHOUT AUTHORIZATION [facility] [address], [place] [address] Draft cc: JUAN DIEGO Rodríguez Copies: ~ PATIENT NAME: EKATERINA BARON ALL OPERATIVE REPORT DATE OF : [birth year] REPORT #: [id number] PHYSICIAN: HARRISON FERNANDEZ MD PCP: GEETHA RODRÍGUEZ MD REPORT IS CONFIDENTIAL AND NOT TO BE RELEASED WITHOUT AUTHORIZATION
--- OUTSIDE RECORDS SUMMARY | 2024-03-10 20:46 | XMS ---
PreManage Notification: EKATERINA BARON Security Chip Mucker Events No recent Security Events currently on file CRITERIA MET - [facility] - [facility] - 2 Visits in 30 Days CARE PROVIDERS CANDACE ROBLES Family [facility] 11/30/2019-Current PHONE: Unknown -, [facility] Dentist: Vice President Quality Improvement [facility] PHONE: [phone] -Aiyana- Dentist: Vice President Quality Improvement [facility] PHONE: [phone] Sukhdeep has no Care Guidelines for this patient. E.D. VISIT COUNT (12 MO.) [address] [facility] TOTAL 8 NOTE: Visits indicate total known visits. ED/UCC VISIT TRACKING (12 MO.) 03/10/2024 20:45 [facility] TYPE: Emergency COMPLAINT: - GI BLEED 03/05/2024 14:20 [facility] TYPE: Emergency COMPLAINT: - CELLULITIS DIAGNOSES: - Allergy status to other drugs, medicaments and biological substances - Cellulitis of buttock - Cellulitis of right lower limb - Other group home (current) drug therapy - Other specified soft tissue disorders 01/27/2024 19:06 [facility] TYPE: Emergency COMPLAINT: - VOMITING 01/20/2024 15:00 [facility] TYPE: Emergency COMPLAINT: - CELLULITIS DIAGNOSES: - Allergy status to other drugs, medicaments and biological substances - Cellulitis of right lower limb - Fever, unspecified - Other group home (current) drug therapy 11/21/2023 19:38 [facility] TYPE: Emergency COMPLAINT: - ELEVATED HEART RATE DIAGNOSES: - Allergy status to other drugs, medicaments and biological substances - Bed confinement status - Cerebral palsy, unspecified - Cough, unspecified - Dependence on supplemental oxygen - Gastrostomy status - FDC (current) use of inhaled steroids - Other group home (current) drug therapy - Severe intellectual disabilities - Tachycardia, unspecified - Tracheostomy status - Vomiting, unspecified 08/19/2023 05:47 [facility] [place] TYPE: Emergency COMPLAINT: - FEVER DIAGNOSES: - Allergy status to other drugs, medicaments and biological substances - Cellulitis of right lower limb - Cerebral palsy, unspecified - Encounter for screening for COVID-19 - Fever, unspecified - Other exterminator helper termite (current) drug therapy - Sepsis, unspecified organism 05/01/2023 10:36 [facility] TYPE: Emergency COMPLAINT: - R LEG HOT/RED 03/27/2023 22:33 [facility] TYPE: Emergency COMPLAINT: - LOW STATS DIAGNOSES: - Allergy status to other drugs, medicaments and biological substances - Atelectasis - Contact with and (suspected) exposure to COVID-19 - Other exterminator helper termite (current) drug therapy - Pneumonitis due to inhalation of food and vomit - Shortness of breath INPATIENT VISIT TRACKING (12 MO.) 03/05/2024 14:21 [facility] [place] TYPE: Observation COMPLAINT: - CELLULITIS 01/28/2024 09:33 [facility] TYPE: Critical Care COMPLAINT: - ASPIRATION PNEUMONIA, SEPSIS, URINARY RETENTION DIAGNOSES: - Allergy status to other drugs, medicaments and biological substances - Calculus of gallbladder without cholecystitis without obstruction - Cellulitis of right lower limb - Cerebral palsy, unspecified - Constipation, unspecified - Dependence on supplemental oxygen - Epilepsy, unspecified, not intractable, without status epilepticus - Hypomagnesemia - Nausea with vomiting, unspecified - Non-pressure chronic ulcer of back with unspecified severity - Other specified diseases of gallbladder - Pneumonitis due to inhalation of food and vomit 05/01/2023 13:53 [facility] TYPE: Medical [...] - Gastrostomy status - Gastrostomy status - FDC (current) use of antibiotics - FDC (current) use of antibiotics - Non-pressure chronic ulcer of skin of other sites with unspecified severity - Non-pressure chronic ulcer of skin of other sites with unspecified severity - Other exterminator helper termite (current) drug therapy - Other exterminator helper termite (current) drug therapy - Other specified postprocedural [...] organism - Tracheostomy status - Tracheostomy status [email or web address]
[2024-03-10 21:38] LABS: BASOPHILS 0.3 % (0-2); HEMOGLOBIN 12.5 g/dL (12.0-18.0); RDW 13.7 (10.5-15.0)
[2024-03-10 21:40] LABS: EOSINOPHILS 0.5 % (0-6); HEMATOCRIT 38.5 % (35.0-50.0); LYMPHOCYTES 34.1 % (24-44); MCH 30.3 (27-36); MCHC 32.4 g/dl (30-36); MCV 93.6 fl (81-99); MONOCYTES 8.3 % (0-12); NEUTROPHILS 56.8 % (39-80); PLATELET COUNT 184 K/uL (140-440); RBC 4.11 M/ul (4.3-5.7)
[2024-03-10 21:48] LABS: INR 0.99 (0.80-1.30); PROTIME 12.4 Sec (11.2-14.2)
[2024-03-10 21:53] LABS: ALBUMIN 3.1 g/dL (3.4-5.0); ALBUMIN/GLOBULIN RATIO 0.53 (1.1-2.4); ANION GAP 2.5 (7-21); BILIRUBIN, TOTAL 0.1 ng/dL (0.2-1.0); CALCIUM 9.3 mg/dL (8.5-10.1); CREATININE, SERUM 0.32 mg/dL (0.70-1.30); POTASSIUM 4.5 mmol/L (3.5-5.1)
[2024-03-10 22:08] LABS: ABO B; ANTIBODY SCREEN NEGATIVE; RH POSITIVE
[2024-03-10 22:21] LABS: PH, VENOUS 7.378 (7.31-7.41)
[2024-03-10] MEDS ORDERED: ACETAMINOPHEN 325 MG TAB PT PRN (23:30)
[2024-03-10] MEDS ORDERED: MORPHINE SULFATE 4 MG/ML VIAL IV PRN (23:30)
[2024-03-10] MEDS ORDERED: ondansetron HCL 4 MG/2 ML VIAL IV PRN (23:30)
[2024-03-10] MEDS ORDERED: DEXTROSE 5% - NACL 0.45% 1,000 ML IV SCH (23:30)
--- NOTE | 2024-03-10 23:50 | NUR ---
PT ARRIVED TO UNIT VIA STRETCHER. HANDOFF REPORT RECEIVED FROM RALPH ARCHIBALD. PT VSS, MOTHER AND FATHER BOTH AT BEDSIDE.
[2024-03-11] VITALS (23 sets, daily range): BP systolic 111–149; BP diastolic 61–106
--- NOTE | 2024-03-11 | NUR ---
PT ADMISSION ASSESSMENT COMPLETE. PT IS ON 2L TRACH MASK, SATURATION ABOVE 95%. PT LUNG SOUNDS ARE CLEAR. PT NOTED TO HAVE CHRONIC WOUND ON COCCYX WITH AQUACEL AND FOAM DRESSING IN PLACE. PT G-TUBE WNL. PT HAS BACLEPHEN PUMP ON RIGHT SIDE IN PLACE. PT IS NONVERBAL AT BASELINE. PT MOTHER AND FATHER BOTH AT BEDSIDE. NO NEEDS AT THIS TIME. CALL LIGHT WITHIN REACH. BED IN LOW AND LOCKED POSITION.
--- NOTE | 2024-03-11 | NUR ---
PT LEFT ARM NOTED TO BE SWOLLEN UPON ARIVAL TO THE UNIT. FAMILY AT BEDSIDE AGREED THAT PT ARM LOOKS MORE SWOLLEN THAN NORMAL. DISCUSSION WITH THIS RN, CHARGE NURSE, AND WAFER FABRICATION TECHNICIAN CONCLUDED WITH THE DECISION TO TAKE LEFT ARM IV OUT. IV TAKEN OUT BY RALPH GUILLEN. CHEMA APPLIED TO SITE.
--- NOTE | 2024-03-11 02:45 | NUR ---
NEW ULTRASOUND GUIDED IV SITE PLACED BY RALPH CARRINGTON. PT TOLERATED WELL. ICE PACK APPLIED TO LEFT ARM. NO FURTHER NEEDS AT THIS TIME. CALL LIGHT WITHIN REACH.
[2024-03-11 05:23] LABS: BASOPHILS 0.3 % (0-2); EOSINOPHILS 0.5 % (0-6); HEMATOCRIT 34.2 % (35.0-50.0); LYMPHOCYTES 29.1 % (24-44); MCH 30.2 (27-36); MCHC 32.2 g/dl (30-36); MCV 93.6 fl (81-99); MONOCYTES 6.3 % (0-12); NEUTROPHILS 63.8 % (39-80); PLATELET COUNT 160 K/uL (140-440); RBC 3.65 M/ul (4.3-5.7); RDW 13.5 (10.5-15.0)
[2024-03-11 05:40] LABS: ALBUMIN 2.6 g/dL (3.4-5.0); ALBUMIN/GLOBULIN RATIO 0.53 (1.1-2.4); ANION GAP 7.3 (7-21); BILIRUBIN, TOTAL 0.1 ng/dL (0.2-1.0); BUN/CREATININE RATIO 28.57 (6.0-28.6); CALCIUM 8.9 mg/dL (8.5-10.1); CREATININE, SERUM 0.28 mg/dL (0.70-1.30); POTASSIUM 4.3 mmol/L (3.5-5.1); PROTEIN, TOTAL 7.5 g/dL (6.4-8.2)
--- NOTE | 2024-03-11 06:50 | NUR ---
DR MACHADO IN PT ROOM TO DISCUSS PLAN OF CARE.
--- NOTE | 2024-03-11 07:15 | NUR ---
REPORT RECEIVED FROM RALPH CORTES. ALL QUESTIONS ANSWERED.
--- NOTE | 2024-03-11 08:00 | NUR ---
MORNING ASSESSMENT COMPLETE. PT AWAKE IN BED. MOTHER AT BEDSIDE. DISCUSSED PLAN OF CARE AND MEDICATIONS. PT WITH SMALL AMOUNT BRIGHT RED BLOOD IN BRIEF, CHANGED AND KATI CARE PROVIDED. PT WITH ACTIVE BOWEL TONES, BACOLFEN PUMP IN PLACE ON RIGHT SIDE. PT ON 2L WITH TRACH MASK, MOTHER REQUEST RT TO SEE PT. CALL PLACED TO RT. MOTHER DENIES FURTHER NEEDS AT THIS TIME. CALL LIGHT IN REACH OF MOTHER. BED IN LOW POSITION.
[2024-03-11] MEDS ORDERED: levalbuterol HCL 1.25 MG/0.5 ML VIAL INH SCH (08:48)
[2024-03-11] MEDS ORDERED: VALPROIC ACID 250 MG/5 ML PT SCH ×2 (09:00→21:00)
[2024-03-11] MEDS ORDERED: VALPROIC ACID 250 MG CAP PO SCH (09:00)
[2024-03-11] MEDS ORDERED: DAPTOmycin 500 MG/10 ML VIAL IV SCH (09:00)
[2024-03-11] MEDS ORDERED: CEFTRIAXONE/SODIUM CHLORIDE 2 GM/100 ML PIGGYBACK IV SCH (09:00)
[2024-03-11] MEDS ORDERED: GLYCOPYRROLATE 1 MG TABLET PT SCH ×2 (09:00)
[2024-03-11] MEDS ORDERED: cloBAZam 20 MG TABLET PT SCH (09:00)
--- NOTE | 2024-03-11 09:16 | NUR ---
MED REC COMPLETE
--- NOTE | 2024-03-11 09:19 | NUR ---
IN ROOM FOR MORNING MEDICATIONS, ALL MEDICATIONS AND DOSES VERIFIED WITH PT MOTHER. CRUSHED AND PT MOTHER ADMINISTER. PHARMACY IN ROOM DOING MED REC. PT DESATS TO 78% ON VAPOTHERM, PT PLACED BACK TO 2L TRACH MASK AND MOTHER SUCTIONS, PT O2 SAT UP TO 98%. MOTHER DENIES FURTHER NEEDS AT THIS TIME.
--- NOTE | 2024-03-11 11:03 | NUR ---
PT AWAKE IN BED, MOTHER AT BEDSIDE. PT ON VAPOTHERM, 20L 70%. PT APPEARS TO BE COMFORTABLE, MOTHER AGREES. MOTHER DENIES FURTHER NEEDS AT THIS TIME. CALL LIGHT IN REACH.
--- NOTE | 2024-03-11 11:34 | NUR ---
SPOKE TO PATIENT'S MOTHER AND FATHER.PATIENT'S DEMOGRAPHICS ARE CORRECT. PATIENT LIVES WTH HIS PARENTS.PATIENT HAS CEREBRAL PALSY AND IS BED BOUND. PARENTS STATE THAT THEY HAVE ALL DME THAT IS NEEDED. PATIENT'S PARENTS ARE HIS FRAUD EXAMINER CARE GIVERS.PATIENT SMILES AND LOOKS AROUND,THE PATIENT IS NON-VERBAL.PATIENT MAY GO TO THE OR FOR A SCOPE TODAY PER ER DOCTOR. PARENTS REMINDED TO LET THE DC TOUR ACTOR KNOW IF THERE IS ANY THING THEY CAN HELP WITH. PATIENT WILL GO HOME WITH HIS PARENTS WHEN MEDICALLY STABLE TO BE DISCHARGED.
[2024-03-11] MEDS ORDERED: DEXTROSE 5% - NACL 0.45% 1,000 ML IV SCH (12:30)
--- NOTE | 2024-03-11 13:03 | NUR ---
MOTHER REPORT BM, BRIEF OPENED, SMALL AMOUNT OF BRIGHT RED BLOOD WITH SMALL CLOTS NOTED.
--- NOTE | 2024-03-11 14:00 | NUR ---
PT WITH NO VOID SINCE AM, BLADDER SCAN OF 553. CALLED DR MACHADO, TELEPHONE ORDER READ BACK TO INSERT HILL CATHETER.
[2024-03-11] MEDS ORDERED: LIDOCAINE 2% VISCOUS 6 ML SYR TOP ONE (14:15)
--- NOTE | 2024-03-11 14:23 | NUR ---
16 BULGARIAN COUDE HILL CATHETER PLACED PER ORDER WITH STERILE TECHNIQUE. PT TOLERATED WELL. IMMEDIATE RETURN OF 650MLS CLEAR YELLOW URINE. STAT LOCK APPLIED.
--- NOTE | 2024-03-11 15:25 | NUR ---
PT AWAKE IN BED, MOTHER AT BEDSIDE. MOTHER DENIES NEEDS AT THIS TIME. PT APPEARS COMFORTABLE, FLACC 0. CALL LIGHT IN REACH OF MOTHER.
--- NOTE | 2024-03-11 16:06 | NUR ---
SCHEDULED MEDICATION CRUSHED AT BEDSIDE. MOTHER JESSIE ADMINISTERED THROUGH TUBE. NO OTHER NEEDS/DESIRES IDENTIFIED AT THIS TIME
[2024-03-11] MEDS ORDERED: POLYETHYLENE GLYCOL 3350 BOTTLE PT SCH (17:30)
--- NOTE | 2024-03-11 17:30 | NUR ---
DR FERNANDEZ IN ROOM, PLAN OF CARE DISCUSSED WITH FAMILY. PT COCCYX DRESSING CHANGED WITH WOUND CLEANSER, AQUACEL AND OPTIFOAM. BRIEF CHANGED. PT REPOSITIONED IN BED. FMAILY AT BEDSIDE. PT APPEARS COMFORTABLE, FLACC 0. MOTHER DENIES FURTHER NEEDS AT THIS TIME.
--- NOTE | 2024-03-11 19:45 | NUR ---
HAND OFF REPORT RECEIVED FROM DAY SHIFT RN. PT AWAKE IN BED WITH FAMILY AT BEDSIDE. PT VSS. PT ON VAPOTHERM 20L WITH FIO2 AT 70%. PT IV SITE WNL. PT HILL IN PLACE. PT BACLOPHEN PUMP IN PLACE ON RIGHT SIDE. PT G-TUBE WNL. PT DRESSING ON COCCYX C/D/I. PT REPOSITONED AND APPEARS COMFORTABLE. NO FURTHER NEEDS AT THIS TIME. CALL LIGHT WITHIN REACH.
--- NOTE | 2024-03-11 21:49 | NUR ---
MEDICATIONS CRUSHED AT BEDSIDE. MOTHER ADMINISTED THROUGH G-TUBE. NO FURTHER NEEDS AT THIS TIME. CALL LIGHT WITHIN REACH.
--- NOTE | 2024-03-11 23:30 | NUR ---
PT HAD 150 ML OF MIRALAX GIVEN OVER 15 MINUTES. PT BEGAN VOMITING. PT TURNED TO SIDE AND ORAL SUCTION COMPLETED. TRACH SUCTION COMPLETED PER PT FATHER. PT SATS REMAINED ABOVE 90% ON CURRENT VAPOTHERM SETTING. PT LINEN CHANGED AND NEW GOWN PLACED. PT REPOSITONED FOR COMFORT. PT VS REMAIN STABLE. NO FURTHER NEEDS AT THIS TIME. CALL LIGHT WITHIN REACH.
[2024-03-12] VITALS (20 sets, daily range): BP systolic 115–151; BP diastolic 71–110
--- NOTE | 2024-03-12 00:30 | NUR ---
PT RESTING IN BED, APPEARS TO BE COMFORTABLE, FLACC SCORE 0. PT FATHER AT BEDSIDE. VSS. NO NEEDS AT THIS TIME, CALL LIGHT WITHIN REACH.
[2024-03-12 05:28] LABS: BASOPHILS 0.1 % (0-2); EOSINOPHILS 0.3 % (0-6); HEMOGLOBIN 9.5 g/dL (12.0-18.0); LYMPHOCYTES 23.3 % (24-44); MCH 30.4 (27-36); MCHC 32.6 g/dl (30-36); MCV 93.3 fl (81-99); MONOCYTES 5.8 % (0-12); NEUTROPHILS 70.5 % (39-80); PLATELET COUNT 178 K/uL (140-440); RBC 3.11 M/ul (4.3-5.7); RDW 13.7 (10.5-15.0)
[2024-03-12 05:39] LABS: ALBUMIN 2.5 g/dL (3.4-5.0); ALBUMIN/GLOBULIN RATIO 0.56 (1.1-2.4); ANION GAP 5.1 (7-21); BILIRUBIN, TOTAL 0.1 ng/dL (0.2-1.0); BUN/CREATININE RATIO 12.5 (6.0-28.6); CALCIUM 8.5 mg/dL (8.5-10.1); CREATININE, SERUM 0.24 mg/dL (0.70-1.30); POTASSIUM 4.1 mmol/L (3.5-5.1)
--- NOTE | 2024-03-12 05:46 | NUR ---
PT HAD LARGE RED BM, [id number] OF RED CLOTS, NO NOTEABLE STOOL. LINEN CHANGED, NEW GOWN AND ATTENDS PROVIDED. PT REPOSITONED IN BED. NO FURTHER NEEDS AT THIS TIME. CALL LIGHT WITHIN REACH.
--- NOTE | 2024-03-12 06:53 | NUR ---
DR MACHADO IN PT ROOM TO DISCUSS PLAN OF CARE
--- NOTE | 2024-03-12 08:16 | NUR ---
PATIENT IN BED AT THIS TIME. FAMILY IS AT BEDSIDE, CALL LIGHT WITHIN REACH, NO FURTHER NEEDS AT THIS TIME.
--- NOTE | 2024-03-12 08:18 | NUR ---
REPORT RECEIVED FROM SEBASTIAN ROSAS, ALL QUESTIONS ANSWERED. PT AWAKE IN BED, RT AND PARENTS AT BEDSIDE. MOTHER DENIES NEEDS AT THIS TIME.
[2024-03-12] MEDS ORDERED: propofoL 200 MG/20 ML VIAL ONE (08:24)
--- NOTE | 2024-03-12 08:25 | NUR ---
ASSESSMENT COMPLETE. PT REMAINS ON VAPOTHERM AT 20L AND 70%FIO2. COARSE LUNG SOUNDS NOTED. ACTIVE BOWEL TONES. PARENTS REPORT ONE LARGE BLOODY STOOL THIS AM. PT ALERT AND AWAKE, APPEARS COMFORTABLE, FLACC 0. PARENTS SUCTIONING AT BEDSIDE. MEDICATIONS ADMINISTERED, SEE EMAR. PARENTS DENY FURTHER NEEDS AT THIS TIME.
[2024-03-12] MEDS ORDERED: CEFTRIAXONE/SODIUM CHLORIDE 2 GM/100 ML PIGGYBACK IV SCH (09:00)
[2024-03-12] MEDS ORDERED: DAPTOmycin 500 MG/10 ML VIAL IV SCH (09:00)
--- NOTE | 2024-03-12 09:00 | NUR ---
PT TO OR VIA BED
[2024-03-12] MEDS ORDERED: ePHEDrine sulfate 50 MG/ML AMP ONE (09:50)
--- NOTE | 2024-03-12 10:00 | NUR ---
PT RETURNS TO RM 126, PT AWAKENS EASILY. PARENTS AT BEDSIDE. VSS, PT ON CHRONIC 2L VIA TRACH MASK. REPORT RECEIVED FROM TANK TRUCK MECHANIC AND CHILD CARE SITTER.
--- NOTE | 2024-03-12 10:15 | NUR ---
RT IN ROOM PLACING PT BACK ON VAPOTHERM VIA TRACH MASK. CONTINUES ON 20L AND 70% FIO2. O2 SAT 98%.
--- NOTE | 2024-03-12 10:19 | NUR ---
03/12/24 Lynda Ferreira I AM PRESENT FOR PATIENT'S COLONOSCOPY. AT COMPLETION, PATIENT RETURNS TO ROOM 126 WHERE BEDSIDE REPORT IS GIVEN TO CURT ORTIZ RN AND MATEUS FRANCO RN. THEIR QUESTIONS ARE ANSWERED. PATIENT'S PARENTS ARE PRESENT FOR REPORT WELL. PATIENT HAS A CHRONIC TRACH AND IS AT HIS BASELINE UPON RETURN TO ROOM 126.
--- NOTE | 2024-03-12 10:30 | NUR ---
DR FERNANDEZ IN ROOM DISCUSSIN SURGERY WITH PARENTS
--- NOTE | 2024-03-12 11:45 | NUR ---
UNABLE TO SAVE EMAR DOCUMENTATION OF MEDICATION ADMINISTRATION. [employer] CALLED AND TICKET CREATED. DAPTOMYCIN GIVEN AT 1145.
--- NOTE | 2024-03-12 12:03 | NUR ---
PT UP TO PERSONAL WHEELCHAIR FULL ASSIST BY PARENTS. JIM WRITTEN NURSE NOTIFY ORDER TO START TUBE FEED REGIMEN. TUBE FEED STARTED BY MOTHER ON PERSONAL EQUIPMENT. COMPLETE LINEN CHANGE. PARENTS DENY NEEDS AT THIS TIME. CALL LIGHT IN REACH OF PARENTS.
--- NOTE | 2024-03-12 12:44 | NUR ---
VERBAL ORDER FROM DR MACHADO TO REMOVE HILL CATHETER, DC IV FLUIDS, CBC FOR 1700 AND REPEAT FOR AM. ORDERS PLACED. HILL CATHETER REMOVED, PT TOLERATED WELL. IV SALINE LOCKED. FAMILY UPDATED ON PLAN OF CARE.
--- NOTE | 2024-03-12 13:31 | NUR ---
PATIENT IN CHAIR AT THIS TIME. FAMILY IN ROOM WITH PATIENT WELL. CALL LIGHT WITHIN REACH OF FAMILY MEMBERS, PATIENT HAS NO FURTHER NEEDS AT THIS TIME.
--- NOTE | 2024-03-12 14:58 | NUR ---
PATIENT HAD 1 X LARGE SOFT BM. PATIENT CHANGED BY CAREGIVERS. NEW ALLEVYN APPLIED TO PREEXISTING PRESSURE WOUND. PATIENT BACK IN MOTORIZED CHAIR. FRESH LINENS AND CHUX PROVIDED.
--- NOTE | 2024-03-12 16:53 | NUR ---
AFTERNOON DOSE OF GLYCOPYRROLATE 1.5MG GIVEN, STILL UNABLE TO SCAN IN EMAR.
[2024-03-12 17:10] LABS: BASOPHILS 0.2 % (0-2); EOSINOPHILS 0.2 % (0-6); HEMATOCRIT 28.5 % (35.0-50.0); HEMOGLOBIN 9.3 g/dL (12.0-18.0); LYMPHOCYTES 16.5 % (24-44); MCH 30.5 (27-36); MCHC 32.8 g/dl (30-36); MCV 92.9 fl (81-99); NEUTROPHILS 77.1 % (39-80); PLATELET COUNT 187 K/uL (140-440); RBC 3.06 M/ul (4.3-5.7); RDW 13.4 (10.5-15.0)
--- NOTE | 2024-03-12 18:19 | NUR ---
PT DISCHARGE ORDER IN, DR ROLON UNABLE TO COMPLETE DISCHARGE. PAPER DISCHARGE SHEET COMPLETED BY DR ROLON, DISCHARGE INSTRUCTIONS REVIEWED WITH PATIENT PARENTS BY DR ROLON WELL THIS RN. PAPER DISCHARGE ORDERS SIGNED BY THIS RN, DR ROLON AND PATIENT MOTHER.
--- NOTE | 2024-03-14 09:20 | NUR ---
UR CLINICAL REVIEW: [facility] [place]- MET INPATIENT FOR GI BLEED, [facility] 03/10/24 @ 2326 AUTH PENDING, CLINICALS FAXED THIS AM VIA [employer]. DC'D HOME WITH PARENTS/CAREGIVERS.
== END 2024-03-12 18:16 | disposition home or self-care (01) | DRG 394 ==
LOC: ED 20:45 → CCU 23:34
PROVIDERS: Family Medicine; Surgery; ADMIT Internal Medicine; ATTEND Family Medicine
PROC: 0W3P8ZZ Control Bleeding in Gastrointestinal Tract, Via Natural or Artificial Opening Endoscopic (ICD-10-PCS; 2024-03-12)
PROC: 0DBP8ZZ Excision of Rectum, Via Natural or Artificial Opening Endoscopic (ICD-10-PCS; principal; 2024-03-12 09:00)
DX: K63.5 Polyp of colon (principal); L03.90 Cellulitis, unspecified; G80.9 Cerebral palsy, unspecified; K62.1 Rectal polyp; Z88.8 Allergy status to other drugs, medicaments and biological substances; Z97.8 Presence of other specified devices; Z99.81 Dependence on supplemental oxygen; Z93.1 Gastrostomy status; Z93.0 Tracheostomy status
CPT/HCPCS: 00811; 31720; 36415; 51798; 74177; 80053; 82803; 83735; 85025; 85610; 86850; 86900; 86901; 94640; 94799; J0696; J0878; J2704; J7042

== ENCOUNTER 2024-03-29 16:47 | Emergency (ER) | payer OTHER ==
[~2024-03-29] VITALS: Ht 157.5 cm; Wt 51.6 kg
--- OUTSIDE RECORDS SUMMARY | 2024-03-29 16:49 | XMS ---
PreManage Notification: EKATERINA BARON Security Body Repairer Events No recent Security Events currently on file CRITERIA MET - 6 ED Visits in 6 Months - [facility] - 2 Visits in 30 Days CARE PROVIDERS CANDACE ROBLES Family [facility] 11/30/2019-Current PHONE: Unknown -[facility] Dentist: Horticultural Manager [facility] PHONE: [phone] -Aiyana- Dentist: Horticultural Manager [facility] Dental [facility] PHONE: [phone] Sukhdeep has no Care Guidelines for this patient. E.D. VISIT COUNT (12 MO.) [address] [facility] TOTAL 8 NOTE: Visits indicate total known visits. ED/UCC VISIT TRACKING (12 MO.) 03/29/2024 16:48 [facility] TYPE: Emergency COMPLAINT: - LEG SWELLING 03/10/2024 20:45 [facility] TYPE: Emergency COMPLAINT: - GI BLEED 03/05/2024 14:20 [facility] TYPE: Emergency COMPLAINT: - CELLULITIS DIAGNOSES: - Allergy status to other drugs, medicaments and biological substances - Cellulitis of buttock - Cellulitis of right lower limb - Other computer terminal operator (current) drug therapy - Other specified soft tissue disorders 01/27/2024 19:[address] [facility] [place] TYPE: Emergency COMPLAINT: - VOMITING 01/20/2024 15:[address] [facility] TYPE: Emergency COMPLAINT: - CELLULITIS DIAGNOSES: - Allergy status to other drugs, medicaments and biological substances - Cellulitis of right lower limb - Fever, unspecified - Other mcc (current) drug therapy 11/21/2023 19:38 [facility] TYPE: Emergency COMPLAINT: - ELEVATED HEART RATE DIAGNOSES: - Allergy status to other drugs, medicaments and biological substances - Bed confinement status - Cerebral palsy, unspecified - Cough, unspecified - Dependence on supplemental oxygen - Gastrostomy status - MCC (current) use of inhaled steroids - Other computer terminal operator (current) drug therapy - Severe intellectual disabilities - Tachycardia, unspecified - Tracheostomy status - Vomiting, unspecified 08/19/2023 05:47 [facility] TYPE: Emergency COMPLAINT: - FEVER DIAGNOSES: - Allergy status to other drugs, medicaments and biological substances - Cellulitis of right lower limb - Cerebral palsy, unspecified - Encounter for screening for COVID-19 - Fever, unspecified - Other mcc (current) drug therapy - Sepsis, unspecified organism 05/01/2023 10:36 [facility] TYPE: Emergency COMPLAINT: - R LEG HOT/RED INPATIENT VISIT TRACKING (12 MO.) 03/10/2024 23:34 [facility] TYPE: Critical Care COMPLAINT: - LOWER GI BLEED DIAGNOSES: - Allergy status to other drugs, medicaments and biological substances - Cellulitis, unspecified - Cerebral palsy, unspecified - Dependence on supplemental oxygen - Gastrostomy status - Melena - Polyp of colon - Presence of other specified devices - Rectal polyp - Tracheostomy status 03/05/2024 14:21 [facility] TYPE: Observation COMPLAINT: - CELLULITIS 01/28/2024 [...] inhalation of food and vomit 05/01/2023 13:[address] [facility] [place] TYPE: Medical Surgical COMPLAINT: - CELLULITIS, [...] - Gastrostomy status - Gastrostomy status - MCC (current) use of antibiotics - termite treater helper (current) use of antibiotics - Non-pressure chronic ulcer of skin of other sites with unspecified severity - Non-pressure chronic ulcer of skin of other sites with unspecified severity - Other computer terminal operator (current) drug therapy - Other computer terminal operator (current) drug therapy - Other specified postprocedural [...] organism - Tracheostomy status - Tracheostomy status [email or web address]
[2024-03-29] MEDS ORDERED: CEFTRIAXONE/SODIUM CHLORIDE 2 GM/100 ML PIGGYBACK IV ONE ×2 (17:30→17:45)
[2024-03-29] MEDS ORDERED: LACTATED RINGER'S 1,000 ML IV ONE (17:30)
[2024-03-29 17:34] LABS: BASOPHILS 0.2 % (0-2); EOSINOPHILS 0.1 % (0-6); PLATELET COUNT 203 K/uL (140-440); RBC 3.46 M/ul (4.3-5.7)
[2024-03-29 17:37] LABS: MCH 28.9 (27-36); MCHC 31.3 g/dl (30-36); MCV 92.3 fl (81-99); MONOCYTES 4.9 % (0-12); NEUTROPHILS 90.8 % (39-80); RDW 14.2 (10.5-15.0)
[2024-03-29 17:44] LABS: ALBUMIN 3.2 g/dL (3.4-5.0); ALBUMIN/GLOBULIN RATIO 0.6 (1.1-2.4); ANION GAP 8.4 (7-21); BILIRUBIN, TOTAL 0.2 ng/dL (0.2-1.0); CALCIUM 9.1 mg/dL (8.5-10.1); CREATININE, SERUM 0.32 mg/dL (0.70-1.30); POTASSIUM 4.4 mmol/L (3.5-5.1); PROTEIN, TOTAL 8.5 g/dL (6.4-8.2)
[2024-03-29] MEDS ORDERED: SODIUM CHLORIDE 0.9% 1,000 ML IV ONE (17:45)
[2024-03-29] MEDS ORDERED: DAPTOmycin 500 MG/10 ML VIAL IV ONE (17:45)
[2024-03-29 17:56] LABS: LACTIC ACID, BLOOD 0.6 mmol/L (0.4-2.0)
--- NOTE | 2024-03-29 18:08 | NUR ---
LE 1730 TC FROM PT'S MOTHER ASKING TO HAVE PT'S PUMP DECREASED WHILE IN ER TONIGHT. 1745 RECEIVED NEW ORDER FROM DR RODRÍGUEZ TO DECREASE INTRATHECAL BACLOFEN BY 20%. 1750 ARRIVED IN ER ROOM 8 AND INTEROGATTED PT'S SYNCHROMED II PUMP. DECREASED PT'S DAILY BACLOFEN DOSE BY 20%, THEN REINTEROGATTED PT'S SYNCHROMED II PUMP WITH THE UPDATE. PT TOLERATED DECREASE WITH NO PROBLEMS. PRINT OUT GIVEN TO CAREGIVER AND ER NURSE FOR PT'S RECORD. LEFT ROOM AT 1800.
[2024-03-29 19:32] VITALS: BP 124/78
== END 2024-03-29 19:37 | disposition home or self-care (01) ==
LOC: ED 16:47
PROVIDERS: Emergency Medicine
DX: L03.115 Cellulitis of right lower limb (principal); G80.9 Cerebral palsy, unspecified; Z88.8 Allergy status to other drugs, medicaments and biological substances; Z79.899 Other long term (current) drug therapy
CPT/HCPCS: 36415; 80053; 83605; 85025; 87040; 96374; 96375; 99283-25; J0696; J0878; J7030

== ENCOUNTER 2024-05-19 08:07 | Emergency (ER) | payer OTHER ==
[~2024-05-19] VITALS: Ht 157.5 cm; Wt 116.0 kg
--- OUTSIDE RECORDS SUMMARY | 2024-05-19 08:09 | XMS ---
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 E.D. VISIT COUNT (12 MO.) 8 [facility] TOTAL 9 NOTE: Visits indicate total known visits. ED/UCC VISIT TRACKING (12 MO.) 05/19/2024 08:07 [facility] [place] TYPE: Emergency COMPLAINT: - COLD SYMPTOMS 04/01/2024 06:15 [facility] TYPE: Emergency DIAGNOSES: 52673. personnel security specialist problem [id number]. Cerebral palsy, unspecified 49634. Presence of other specified devices 03/29/2024 16:48 [facility] [place] TYPE: Emergency COMPLAINT: - LEG SWELLING DIAGNOSES: - Allergy status to other drugs, medicaments and biological substances - Cellulitis of right lower limb - Cerebral palsy, unspecified - Other long-term (current) drug therapy 03/10/2024 20:[address] [facility] [place] TYPE: Emergency COMPLAINT: - GI BLEED 03/05/2024 14:[address] [facility] [place] TYPE: Emergency COMPLAINT: - CELLULITIS DIAGNOSES: - Allergy status to other drugs, medicaments and biological substances - Cellulitis of buttock - Cellulitis of right lower limb - Other long-term (current) drug therapy - Other specified soft tissue disorders 01/27/2024 19:[address] [facility] [place] TYPE: Emergency COMPLAINT: - VOMITING 01/20/2024 15:[address] [facility] [place] TYPE: Emergency COMPLAINT: - CELLULITIS DIAGNOSES: - Allergy status to other drugs, medicaments and biological substances - Cellulitis of right lower limb - Fever, unspecified - Other assistant terminal manager (current) drug therapy 11/21/2023 19:38 [facility] [place] TYPE: Emergency COMPLAINT: - ELEVATED HEART RATE DIAGNOSES: - Allergy status to other drugs, medicaments and biological substances - Bed confinement status - Cerebral palsy, unspecified - Cough, unspecified - Dependence on supplemental oxygen - Gastrostomy status - parts counterman (current) use of inhaled steroids - Other long-term (current) drug therapy - Severe intellectual disabilities - Tachycardia, unspecified - Tracheostomy status - Vomiting, unspecified 08/19/2023 05:[address] [facility] [place] TYPE: Emergency COMPLAINT: - FEVER DIAGNOSES: - Allergy status to other drugs, medicaments and biological substances - Cellulitis of right lower limb - Cerebral palsy, unspecified - Encounter for screening for COVID-19 - Fever, unspecified - Other assistant terminal manager (current) drug therapy - Sepsis, unspecified organism INPATIENT VISIT TRACKING (12 MO.) 04/01/2024 06:15 [facility] TYPE: Neuro Surgery DIAGNOSES: 26658. Breakdown (mechanical) of cranial or spinal infusion catheter, sequela 78866. Cerebral palsy, unspecified 02664. Cramp and spasm 13591. Presence of other specified devices 03/10/2024 23:34 [facility] [place] TYPE: Critical [...] due to inhalation of food and vomit [email or web address]
[2024-05-19] MEDS ORDERED: TIZANIDINE HCL2 MG PO (08:17)
[2024-05-19] MEDS ORDERED: PAXLOVID 300-11 EAC1 PO (08:18)
[2024-05-19 08:24] VITALS: BP 114/55
== END 2024-05-19 08:24 | disposition home or self-care (01) ==
LOC: ED 08:07
DX: U07.1 COVID-19 (principal); G80.9 Cerebral palsy, unspecified; Z99.81 Dependence on supplemental oxygen; Z88.8 Allergy status to other drugs, medicaments and biological substances; Z79.899 Other long term (current) drug therapy
CPT/HCPCS: 99283

== ENCOUNTER 2024-11-02 21:21 | Emergency (ER) | payer OTHER ==
[~2024-11-02] VITALS: Ht 157.5 cm; Wt 45.0 kg
[~2024-11-02 21:21] MED LIST changes: +PAXLOVID 300-11 EAC1 PO; +TIZANIDINE HCL2 MG PO
[2024-11-02 22:46] LABS: BASOPHILS 0.1 % (0-2); EOSINOPHILS 0.2 % (0-6); HEMATOCRIT 41.3 % (35.0-50.0); HEMOGLOBIN 13.7 g/dL (12.0-18.0); LYMPHOCYTES 7.4 % (24-44); MCH 30.2 (27-36); MCV 91.3 fl (81-99); MONOCYTES 5.9 % (0-12); NEUTROPHILS 86.4 % (39-80); PLATELET COUNT 191 K/uL (140-440); RBC 4.53 M/ul (4.3-5.7); RDW 13.4 (10.5-15.0)
[2024-11-02 23:02] LABS: ALBUMIN 3.3 g/dL (3.4-5.0); ALBUMIN/GLOBULIN RATIO 0.65 (1.1-2.4); ANION GAP 11.1 (7-21); BILIRUBIN, TOTAL 0.2 mg/dL (0.2-1.0); BUN/CREATININE RATIO 46.66 (6.0-28.6); CALCIUM 9.4 mg/dL (8.5-10.1); CREATININE, SERUM 0.3 mg/dL (0.70-1.30); POTASSIUM 4.1 mmol/L (3.5-5.1); PROTEIN, TOTAL 8.4 g/dL (6.4-8.2)
[2024-11-02] MEDS ORDERED: CEFTRIAXONE SODIUM 2 GM VIAL ONE (23:19)
[2024-11-02] MEDS ORDERED: CEFTRIAXONE SODIUM 2 GM in SODIUM CHLORIDE 0.9% 100 ML IV ONE (23:30)
[2024-11-03] MEDS ORDERED: DAPTOmycin 500 MG/10 ML VIAL IV ONE ×2 (00:15→23:30)
[2024-11-03 00:21] VITALS: BP 121/71
[2024-11-03] MEDS ORDERED: DAPTOmycin 500 MG/10 ML VIAL IV SCH (09:00)
== END 2024-11-03 00:21 | disposition home or self-care (01) ==
LOC: ED 21:21
PROVIDERS: Internal Medicine
DX: L03.115 Cellulitis of right lower limb (principal); Z79.899 Other long term (current) drug therapy; Z88.0 Allergy status to penicillin
CPT/HCPCS: 36415; 80053; 83605; 85025; 96374; 96375; 99283-25; J0696; J0878

== ENCOUNTER 2024-12-28 19:16 | Emergency (ER) | payer OTHER ==
[~2024-12-28] VITALS: Ht 157.5 cm; Wt 45.0 kg
[2024-12-28] MEDS ORDERED: CEFTRIAXONE SODIUM 2 GM in SODIUM CHLORIDE 0.9% 100 ML IV ONE (20:00)
[2024-12-28] MEDS ORDERED: DAPTOmycin 500 MG/10 ML VIAL IV ONE (20:00)
[2024-12-28 20:13] LABS: BASOPHILS 0.2 % (0-2); EOSINOPHILS 0.4 % (0-6); HEMATOCRIT 43.6 % (35.0-50.0); HEMOGLOBIN 14.9 g/dL (12.0-18.0); LYMPHOCYTES 9.1 % (24-44); MCH 30.7 (27-36); MCHC 34.2 g/dl (30-36); MCV 89.8 fl (81-99); NEUTROPHILS 84.3 % (39-80); PLATELET COUNT 197 K/uL (140-440); RBC 4.85 M/ul (4.3-5.7); RDW 13.3 (10.5-15.0)
[2024-12-28 20:32] LABS: ALBUMIN 3.3 g/dL (3.4-5.0); ALBUMIN/GLOBULIN RATIO 0.6 (1.1-2.4); ANION GAP 8.3 (7-21); BILIRUBIN, TOTAL 0.2 mg/dL (0.2-1.0); BUN/CREATININE RATIO 45.94 (6.0-28.6); CALCIUM 9.1 mg/dL (8.5-10.1); CREATININE, SERUM 0.37 mg/dL (0.70-1.30); POTASSIUM 4.3 mmol/L (3.5-5.1); PROTEIN, TOTAL 8.8 g/dL (6.4-8.2)
[2024-12-28 20:36] LABS: LACTIC ACID, BLOOD 1.6 mmol/L (0.4-2.0)
[2024-12-28] MEDS ORDERED: IBUPROFEN 100 MG/5 ML CUP PO ONE (21:15)
[2024-12-28] MEDS ORDERED: ACETAMINOPHEN 160 MG/5 ML CUP PO ONE (21:15)
[2024-12-28 22:39] VITALS: BP 109/99
== END 2024-12-28 22:39 | disposition home or self-care (01) ==
LOC: ED 19:16
PROVIDERS: Emergency Medicine
DX: L03.115 Cellulitis of right lower limb (principal); Z88.8 Allergy status to other drugs, medicaments and biological substances
CPT/HCPCS: 36415; 72194; 80053; 83605; 85025; 96375; 99284-25; A9270; J0696; J0878; Q9967

== ENCOUNTER 2025-02-11 22:04 | Emergency (ER) | payer OTHER ==
[~2025-02-11] VITALS: Ht 157.5 cm; Wt 45.0 kg
[2025-02-11 22:55] LABS: BASOPHILS 0.2 % (0.2-1.2); EOSINOPHILS 0.3 % (0.8-7.0); HEMATOCRIT 46.4 % (40.1-51.0); HEMOGLOBIN 14.8 g/dL (13.7-17.5); LYMPHOCYTES 15.5 % (21.8-53.1); MCH 29.5 PG (25.7-32.2); MCHC 31.9 g/dL (32.3-36.5); MCV 92.4 fL (79.0-92.2); MONOCYTES 6.1 % (5.3-12.2); NEUTROPHILS 77.7 % (34.0-67.9); PLATELET COUNT 238 K/uL (163-337); RBC 5.02 M/uL (4.63-6.08)
[2025-02-11] MEDS ORDERED: CEFTRIAXONE SODIUM 2 GM in SODIUM CHLORIDE 0.9% 100 ML IV ONE (23:00)
[2025-02-11 23:11] LABS: ALBUMIN 3.4 g/dL (3.4-5.0); ALBUMIN/GLOBULIN RATIO 0.58 (1.1-2.4); ANION GAP 12.5 (7-21); BILIRUBIN, TOTAL 0.2 mg/dL (0.2-1.0); BUN/CREATININE RATIO 32.5 (6.0-28.6); CALCIUM 9.2 mg/dL (8.5-10.1); CREATININE, SERUM 0.4 mg/dL (0.70-1.30); POTASSIUM 4.5 mmol/L (3.5-5.1); PROTEIN, TOTAL 9.3 g/dL (6.4-8.2)
[2025-02-11 23:16] LABS: LACTIC ACID, BLOOD 1.9 mmol/L (0.4-2.0)
[2025-02-11] MEDS ORDERED: DAPTOmycin 500 MG/10 ML VIAL IV ONE (23:30)
[2025-02-12] MEDS ORDERED: LACTATED RINGER'S 1,000 ML IV ONE (00:15)
[2025-02-12 02:06] VITALS: BP 105/71
== END 2025-02-12 02:06 | disposition home or self-care (01) ==
LOC: ED 22:04
PROVIDERS: Internal Medicine
DX: L03.115 Cellulitis of right lower limb (principal); Z88.8 Allergy status to other drugs, medicaments and biological substances
CPT/HCPCS: 71045; 72192; 73502; 80053; 83605; 85025; 87040; 96365; 96375; 99284-25; J0696; J0878; J7121